=== PATIENT | male | born 1960 | race Caucasian/White ===

== ENCOUNTER 2023-02-27 08:40 | Emergency (ER) | payer OTHER, SELFPAY ==
[2023-02-27] VITALS (66 sets, daily range): BP systolic 103–153; BP diastolic 53–86; PULSE 68–104; RESP 8–25; TEMP 36.4–37.2; O2SAT 96–100; BMI 27.7
--- NOTE | 2023-02-27 08:46 | ECG_ITS ---
APPROVED REPORT Exam: Resting ECG HR:67 bpm ECG Measurements Heart Rate 67 AXES NH 177 P 76 QRSd 94 QRS 37 QT 404 T 56 QTc 420 Conclusion SINUS RHYTHM NORMAL ECG UNCONFIRMED REPORT Electronically signed by : Tay Fuentes MD 02/28/2023 17:20:13
[2023-02-27 09:19] LABS: Basophils % 0.4 % (0.1-2.0); Eosinophils # 0.1 K/mm3 (0.0-0.4); Eosinophils % 2.6 % (0.1-12.0); Lymphocytes # 0.7 K/mm3 (0.7-4.5); Lymphocytes % 13.2 % (10-50); Mean Corpuscular HGB Conc 27.6 g/dL (31.8-35.4); Mean Corpuscular Hemoglobin 22.5 pg (27.0-31.2); Mean Corpuscular Volume 81.7 fl (80-94); Mean Platelet Volume 6.5 fl (7.4-10.4); Monocytes # 0.4 K/mm3 (0.1-1.0); Monocytes % 7.9 % (1.7-9.3); Neutrophils # 3.9 K/mm3 (1.8-7.8); Platelet Count 412 K/mm3 (142-424); Red Blood Count 2.41 M/mm3 (4.60-6.20); Red Cell Distribution Width 19.8 % (11.5-17.5); White Blood Count 5.1 K/mm3 (4.8-10.8)
[2023-02-27 09:23] LABS: Alanine Aminotransferase 22 U/L (12-78); Albumin Level 3.4 g/dl (3.5-5.0); Albumin/Globulin Ratio 1.4 (1.1-1.8); Alkaline Phosphatase 69 U/L (38-126); Anion Gap 12.7 mEq/L (5-15); Aspartate Amino Transferase 29 U/L (17-59); Bilirubin,Total 0.2 mg/dl (0.2-1.3); Blood Urea Nitrogen 14 mg/dl (9-20); Calcium 8.8 mg/dl (8.4-10.2); Carbon Dioxide 23 mmol/L (22.0-30.0); Chloride 104 mmol/L (98-107); Creatinine Clearance Estimated 91 mL/min (50-200); Estimated Glomerular Filt Rate 85 ml/min (>60); GFR (African American) 103 ML/MIN (>60); Globulin 2.4 g/dL (1.3-3.2); Glucose 135 mg/dl (74-100); Potassium 3.7 mmoL/L (3.5-5.1); Sodium 136 mmol/L (136-145); Total Protein,Serum 5.8 g/dl (6.3-8.2)
--- NOTE | 2023-02-27 09:33 | HMH.EDGENADL ---
Discharge Plan Disposition Patient Disposition: Home, Self-Care Prescriptions Prescriptions: No Action atorvastatin 40 mg Tablet 40 mg PO DAILY metoprolol succinate 100 mg Tablet Extended Release 24 Hr 100 mg PO DAILY ropinirole 0.25 mg Tablet 0.25 mg PO DAILY amlodipine 10 mg Tablet 10 mg PO DAILY albuterol 90 mcg/actuation Aerosol 90 mcg INHALATION DAILY Referrals Follow up/Referrals: Provider,Referral, [Primary Care Provider] - See instructions Clinical Impressions Clinical Impression: Acute blood loss anemia Discharge ED Provider: Steven Stuart General Adult HPI General Chief complaint: Weakness Stated complaint: BP low, weakness Time Seen by Provider: 02/27/23 08:45 Mode of Arrival: Ambulatory Source of Information: Patient Limitations: No Limitations Description of Symptoms (Recalled from ER Triage Doc. by RN): Pt reports tired feeling, SOA with activity. States has been diagnosed with iron deficiency anemia states has been taking iron tablets along with vitamin C x3 weeks. Pt reports is scheduled for colonoscopy on 04/01/23 with [facility]. Pt is skin color is pale. Pt reports bp was low at home. 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 Patient states he been feeling weak over the period of about a month. [facility] Has been taking iron tablets every other day. Last colonoscopy was 11 years ago and was normal, per patient and . Patient states has been feeling short of breath with exertion, but denies positional changes. No chest pain, nausea or vomiting, neurologic deficits. Patient does not take blood thinners. Because of history of near total colectomy, diarrhea, but patient states he denies any melena or obvious bright red blood per rectum Related Data Home Medications Medication Instructions Recorded Confirmed albuterol 90 mcg/actuation aerosol 90 mcg inhalation DAILY . 02/27/23 02/27/23 inhaler amlodipine 10 mg tablet 10 mg PO DAILY . 02/27/23 02/27/23 atorvastatin 40 mg tablet 40 mg PO DAILY . 02/27/23 02/27/23 metoprolol succinate 100 mg 100 mg PO DAILY High Blood Pressure 02/27/23 02/27/23 tablet,extended release 24 hr ropinirole 0.25 mg tablet 0.25 mg PO DAILY . 02/27/23 02/27/23 Allergies Allergy/AdvReac Type Severity Reaction Status Date / Time No Known Allergies Allergy Verified 02/27/23 09:55 [facility] Disclaimer: The information contained in this section may have been updated after the patient was seen, as this information can be updated by other users. Social History Smoking Status: Never smoker alcohol intake: never current occupational status: previously employed Travel in the last 8 weeks: None ROS Obtained: Yes All systems reviewed & no additional complaints except as documented Physical Exam General General appearance: alert and in no apparent distress Head Head exam: atraumatic and normocephalic Eye Eye exam: Present normal appearance, PERRL, EOMI and other (Conjunctival pallor) ENT ENT exam: Present mucous membranes moist Neck Neck exam: Present normal inspection, full ROM and trachea midline Respiratory Respiratory exam: Present normal lung sounds bilaterally; Absent respiratory distress, wheezes, stridor, accessory muscle use or prolonged expiratory phase Cardiovascular Cardiovascular exam: Present regular rate and normal rhythm Abdominal Exam Abdominal exam: Present soft and hernia (Ventral, reducible); Absent distention, tenderness, guarding, rebound, rigidity or normal bowel sounds Extremities Exam Extremities exam: Absent edema Neurological Exam Neurological exam: Present alert, oriented X3, CN II-XII intact and normal gait; Absent motor sensory deficit Skin Skin exam: Present warm, dry and pallor; Absent diaphoresis
[2023-02-27 09:34] LABS: Hematocrit 19.7 % (42.0-52.0)
--- NOTE | 2023-02-27 09:35 | PC.NURSE ---
critical h&h called to
[2023-02-27 09:39] LABS: Hemoglobin 5.4 g/dL (14.1-18.0)
[2023-02-27 09:41] LABS: Activated Partial Thrombo Time 22.6 seconds (22.8-30.6); INR 0.94 (0.9-1.1); Prothrombin Time 10.2 seconds (10.1-12.5); T4 (Thyroxine) 8.4 ug/dl (5.53-11.0)
[2023-02-27 09:54] LABS: Thyroid Stimulating Hormone 5.65 uIU/mL (0.465-4.68)
--- NOTE | 2023-02-27 09:54 | PC.NURSE ---
Dr. Stuart at [facility] to update pt on POC
--- NOTE | 2023-02-27 10:06 | CT_ITS ---
FINAL REPORT TECHNIQUE: Pre-and postcontrast images of the abdomen and pelvis were performed by computed tomography. Extensive 3-D reconstruction images were performed. A CTA was performed. This study was performed with techniques to keep radiation doses as low as reasonably achievable (ALARA). Individualized dose reduction techniques using automated exposure control or adjustment of mA and/or kV according to the patient's size were employed. CLINICAL HISTORY: GIB, anemia. dark stool COMPARISON: None FINDINGS: ABDOMEN AND PELVIS: The lung bases are clear. Precontrast images demonstrate no evidence of nephrolithiasis. No adrenal masses are identified. The liver, spleen and pancreas are unremarkable. The patient appears to have undergone a subtotal colectomy. There is thickening of the forde of bowel loops in the right abdomen, presumed small bowel, with an anastomosis to the colon. There is also wall thickening of the distal colon and rectum. There is bladder wall thickening present as well which may be secondary to cystitis. CTA: The abdominal aorta is proper caliber. The SMA, celiac axis, and RYLEE are patent. 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 There is no significant stenosis or calcification. The renal arteries are patent bilaterally, with 2 renal arteries on the left and a single renal artery on the right. The common iliac arteries are unremarkable in appearance. The internal and external iliac arteries are also normal in appearance. No evidence of active hemorrhage is seen in the gastrointestinal tract. IMPRESSION: No active hemorrhage is seen in the abdomen or pelvis. 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 There are 2 left renal arteries and a single right renal artery. The patient appears to have undergone a subtotal colectomy, and there is thickening of some right abdominal bowel loops, presumed small bowel, with wall thickening also present in the distal colon and rectum. Would favor an enterocolitis as the etiology. Reviewed, Interpreted and Dictated by Tisha Schrader MD Transcribed by Carola Duke Authenticated and [facility]
--- NOTE | 2023-02-27 10:18 | PC.NURSE ---
per lab staff, attempted to run Hgb A1C but states since pts hemaglobin is so low it won't run on their analyzer so they will have to send it out. Notified Dr. Stuart
--- NOTE | 2023-02-27 10:50 | PC.NURSE ---
rounded on pt, notified pt we are waiting on ct scan results. pt states no needs at this time, call light in reach
--- NOTE | 2023-02-27 10:51 | PC.NURSE ---
rounded on pt, updated pt we are waiting on ct scan results, blood transfusion has been ordered for pt, waiting on blood to be ready. Stated to pt when ct scan is resulted, if clear we will get him a food tray. call light in reach, at [facility]
--- NOTE | 2023-02-27 11:25 | PC.NURSE ---
called to check on pts blood product. lab stated they are working on it and will call when ready
--- NOTE | 2023-02-27 12:00 | PC.NURSE ---
Called dietary for a lunch tray
--- NOTE | 2023-02-27 13:00 | PC.NURSE ---
pt received urinal
--- NOTE | 2023-02-27 14:04 | PC.NURSE ---
Pt ambulatory to bathroom and back to bed. Warm blanket provided. No other needs voiced.
--- NOTE | 2023-02-27 15:08 | PC.NURSE ---
pt resting in bed nothing needed at this time, at bs
--- NOTE | 2023-02-27 16:15 | PC.NURSE ---
Dr. Clarke at [facility] to speak with pt
--- NOTE | 2023-02-27 16:22 | PC.NURSE ---
Spoke with Gayle at [facility] transfer center. Advised she would speak with superintendent house and call back.
--- NOTE | 2023-02-27 16:25 | PC.NURSE ---
covid/flu swab sent to lab
[2023-02-27 16:27] LABS: Coronavirus 19, PCR Not Detected (NotDetected); Influenza A, PCR Not Detected (NotDetected); Influenza B, PCR Not Detected (NotDetected)
--- NOTE | 2023-02-27 16:48 | PC.NURSE ---
Dr. Clarke speaking with Dr. Gutierrez hospitalist at [facility]
--- NOTE | 2023-02-27 16:54 | PC.NURSE ---
Pt accepted to [facility] by Dr. Gutierrez. Waiting for call back for bed assignment.
--- NOTE | 2023-02-27 16:59 | PC.NURSE ---
Notified [facility] to have a disc made
--- NOTE | 2023-02-27 17:08 | PC.NURSE ---
pt updated on POC.
[2023-02-27 17:14] LABS: Hematocrit 27.4 % (42.0-52.0)
--- NOTE | 2023-02-27 17:21 | PC.NURSE ---
Called [facility] to update that covid/flu swab was negative. Received bed assignment, Second floor room 263. Number for report [phone].
[2023-02-27 17:49] LABS: Hemoglobin 8.3 g/dL (14.1-18.0)
[2023-02-27 18:10] LABS: Hemoglobin A1C 5.3 % (4.0-6.0)
--- NOTE | 2023-02-27 18:11 | PC.NURSE ---
mary beth called with [facility]. updated nurse on pt leaving the hospital and new HH result
== END 2023-02-27 18:12 | disposition home or self-care (01) ==
PROVIDERS: Emergency Medicine; Emergency Provider Emergency Medicine
DX: D62 Acute posthemorrhagic anemia (principal); R53.1 Weakness; R06.02 Shortness of breath
CPT/HCPCS: 36415; 74174; 80053; 83036; 84436; 84443; 85014; 85018; 85025; 85610; 85730; 86850; 87636; 93005; 96360; 99285; P9016; Q9967

== ENCOUNTER 2024-04-29 06:35 | Emergency (ER) | payer OTHER, SELFPAY ==
[2024-04-29] VITALS (17 sets, daily range): BP systolic 108–135; BP diastolic 66–82; PULSE 66–82; RESP 16–18; TEMP 36.6–36.9; O2SAT 96–100; BMI 24.3
--- NOTE | 2024-04-29 06:54 | ED_ITS ---
Discharge Plan Disposition Patient Disposition: Xfer Short-Term Hosp Prescriptions Prescriptions: No Action atorvastatin 40 mg Tablet 40 mg PO DAILY metoprolol succinate 100 mg Tablet Extended Release 24 Hr 100 mg PO DAILY ropinirole 0.25 mg Tablet 0.25 mg PO DAILY amlodipine 10 mg Tablet 10 mg PO DAILY albuterol 90 mcg/actuation Aerosol 90 mcg INHALATION DAILY Referrals Follow up/Referrals: Provider,Referral, [Primary Care Provider] - See instructions Clinical Impressions Clinical Impression: Acute anemia, GI bleed Stand Alone Forms Stand Alone Forms: Transfer Record - ED Instructions Patient Instructions: DI for Gastrointestinal Bleeding Print Language Print Language: Armenian Discharge ED Provider: Steven Stuart General Adult HPI <Pj Gtz MD - Last Filed: 04/29/24 07:04> General Chief complaint: GI Bleed Stated complaint: SOB, bloody stool Time Seen by Provider: 04/29/24 06:40 Mode of Arrival: Ambulatory Source of Information: Patient and Spouse Limitations: No Limitations Description of Symptoms (Recalled from ER Triage Doc. by RN): pt reports blood in his stool that has been occuring off and on for the past year after recieving chemo and radiation for his colon cancer, last treatment was in December. pt states this morning he was feeling short of air as well and his reported his color was hathaway History of Present Illness HPI narrative: 63-year-old male with history of hypertension hyperlipidemia asthma colon cancer status post chemo and radiation that finished this summer presents with worsening bright red blood per rectum. He reports that he has been having on and off but it has been getting a lot worse. He felt short of breath this morning and thought he looked gary so he came in for evaluation. His hemoglobin was checked last week and was 10.5. He is not on blood thinners. He reports that his shortness of breath this morning was not improved with his CPAP or his inhaler. He does report history of hemorrhoids. Related Data Home Medications ?Medication ?Instructions ?Recorded ?Confirmed albuterol 90 mcg/actuation aerosol 90 mcg inhalation DAILY . 02/27/23 02/27/23 inhaler amlodipine 10 mg tablet 10 mg PO DAILY . 02/27/23 02/27/23 atorvastatin 40 mg tablet 40 mg PO DAILY . 02/27/23 02/27/23 metoprolol succinate 100 mg 100 mg PO DAILY High Blood Pressure 02/27/23 02/27/23 tablet,extended release 24 hr ropinirole 0.25 mg tablet 0.25 mg PO DAILY . 02/27/23 02/27/23 Allergies Allergy/AdvReac Type Severity Reaction Status Date / Time No Known Allergies Allergy Verified 02/27/23 09:55 PFS <Pj Gtz MD - Last Filed: 04/29/24 07:04> [facility] Disclaimer: The information contained in this section may have been updated after the patient was seen, as this information can be updated by other users. Social History (Updated 02/27/23 @ 14:41 by Steven Stuart MD) Smoking Status: Never smoker alcohol intake: never current occupational status: previously employed <Pj Gtz MD - Last Filed: 04/29/24 07:04> ROS Obtained: Yes All systems reviewed & no additional complaints except as documented Physical Exam <Pj Gtz MD - Last Filed: 04/29/24 07:04> General General appearance: alert and in no apparent distress Head Head exam: atraumatic and normocephalic Eye Eye exam: Present normal appearance, PERRL and EOMI ENT ENT exam: Present normal oropharynx and normal external ear exam Neck Neck exam: Present normal inspection and full ROM Chest Chest inspection: Present normal inspection and symmetric chest wall rise; Absent tenderness Respiratory Respiratory exam: Present normal lung sounds bilaterally; Absent respiratory distress Cardiovascular Cardiovascular exam: Present regular rate and normal rhythm Abdominal Exam Abdominal exam: Present soft; Absent distention, tenderness or guarding Rectal Exam comment: Skin tags/hemorrhoids noted Extremities Exam Extremities exam: Present normal inspection; Absent edema or joint swelling Back Exam Back exam: Present normal inspection; Absent tenderness Neurological Exam Neurological exam: Present alert and oriented X3; Absent motor sensory deficit Psychiatric Psychiatric exam: Present normal affect and normal mood Skin Skin exam: Present warm, dry and normal color Lymphatic Lymphatic Findings: no adenopathy Medical Decision Making <Pj Gtz MD - Last Filed: 04/29/24 07:04> Medical Records Medical records reviewed: Yes I reviewed the patient's medical records. Screening: Per USPSTF and CDC recommendations, given the prevalence of disease in our region, it is our hospital?s policy to screen for HIV and viral Hepatitis for all patients aged 18 and over and those with ongoing risk factors. Jeff Inquiry Pt receiving controlled substance: No Jeff was queried for this patient: No Vital Signs: 04/29/24 06:36 04/29/24 07:00 04/29/24 07:30 Temperature 98.4 F Temperature Source Oral Pulse Rate 78 69 Pulse Rate [Right] 77 Respiratory Rate 16 TAR Vitals Timing Blood Pressure Blood Pressure [Right Arm] 108/67 L Blood Pressure Mean Blood Pressure Mean [Right Arm] 80 Blood Pressure Source Blood Pressure Position 02 Sat by Pulse Oximetry 100 100 100 Oxygen Delivery Method Room Air 04/29/24 08:00 04/29/24 08:30 04/29/24 09:17 Temperature 98.1 F Temperature Source Oral Pulse Rate 72 74 76 Pulse Rate [Right] Respiratory Rate 16 TAR Vitals Timing Pre-Blood Vitals Blood Pressure 132/71 Blood Pressure [Right Arm] Blood Pressure Mean 91 Blood Pressure Mean [Right Arm] Blood Pressure Source Blood Pressure Position 02 Sat by Pulse Oximetry 100 100 100 Oxygen Delivery Method 04/29/24 09:17 04/29/24 09:25 04/29/24 09:26 Temperature 98.3 F Temperature Source Oral Pulse Rate 74 69 72 Pulse Rate [Right] Respiratory Rate 16 TAR Vitals Timing Start Vitals Blood Pressure 132/71 115/72 115/72 Blood Pressure [Right Arm] Blood Pressure Mean 86 Blood Pressure Mean [Right Arm] Blood Pressure Source Automatic Cuff Blood Pressure Position Sitting 02 Sat by Pulse Oximetry 100 100 100 Oxygen Delivery Method 04/29/24 09:30 04/29/24 09:30 04/29/24 09:35 Temperature 97.9 F 97.8 F Temperature Source Oral Oral Pulse Rate 82 78 79 Pulse Rate [Right] Respiratory Rate 18 16 TAR Vitals Timing 5 Minute 10 Minute Blood Pressure 125/78 125/78 116/74 Blood Pressure [Right Arm] Blood Pressure Mean 93 88 Blood Pressure Mean [Right Arm] Blood Pressure Source Automatic Cuff Automatic Cuff Blood Pressure Position Sitting Sitting 02 Sat by Pulse Oximetry 100 100 100 Oxygen Delivery Method 04/29/24 09:35 04/29/24 09:40 04/29/24 09:55 Temperature 97.8 F 97.8 F Temperature Source Oral Oral Pulse Rate 66 76 78 Pulse Rate [Right] Respiratory Rate 16 16 TAR Vitals Timing 15 Minute 30 Minute Blood Pressure 116/74 135/82 125/66 Blood Pressure [Right Arm] Blood Pressure Mean 99 85 Blood Pressure Mean [Right Arm] Blood Pressure Source Automatic Cuff Automatic Cuff Blood Pressure Position Sitting Sitting 02 Sat by Pulse Oximetry 96 100 100 Oxygen Delivery Method Room Air 04/29/24 10:00 04/29/24 10:10 04/29/24 10:25 Temperature 98.1 F 98.1 F Temperature Source Oral Oral Pulse Rate 78 77 79 Pulse Rate [Right] Respiratory Rate 16 16 TAR Vitals Timing 45 Minute 60 Minute Blood Pressure 118/73 112/73 113/71 Blood Pressure [Right Arm] Blood Pressure Mean 86 85 Blood Pressure Mean [Right Arm] Blood Pressure Source Automatic Cuff Automatic Cuff Blood Pressure Position Sitting Sitting 02 Sat by Pulse Oximetry 100 100 100 Oxygen Delivery Method Room Air 04/29/24 10:30 04/29/24 10:30 04/29/24 10:38 Temperature 98.1 F 98.1 F Temperature Source Oral Oral Pulse Rate 76 76 78 Pulse Rate [Right] Respiratory Rate 16 16 TAR Vitals Timing Completion Vitals Blood Pressure 116/72 116/72 128/66 Blood Pressure [Right Arm] Blood Pressure Mean 86 Blood Pressure Mean [Right Arm] Blood Pressure Source Automatic Cuff Automatic Cuff Blood Pressure Position Sitting Sitting 02 Sat by Pulse Oximetry 100 100 Oxygen Delivery Method Room Air Room Air Lab Data Lab results reviewed: Yes I reviewed the patient's lab results. Lab Results 04/29/24 06:43: WBC 4.5 L, RBC 2.54 L, Hgb 7.2 L, Hct 22.0 L, MCV 86.7, MCH 28.5, MCHC 32.8, RDW 16.3, Plt Count 258, MPV 7.0 L, Neut % (Auto) 73.5, Lymph % (Auto) 15.5, [place] % (Auto) 9.2, Eos % (Auto) 1.4, Baso % (Auto) 0.4, Neut # (Auto) 3.3, Lymph # (Auto) 0.7, [place] # (Auto) 0.4, Eos # (Auto) 0.1, Baso # (Auto) 0.0, PT 10.1, INR 0.89 L, APTT 19.9 L, D-Dimer 0.43, Sodium 138, P otassium 3.1 L, Chloride 105, Carbon Dioxide 28, Anion Gap 8.1, BUN 15, Creatinine 0.90, Estimated Creat Clear 79, Estimated GFR 85, Est GFR ( Amer) 103, Glucose 116 H, Calcium 9.2, Magnesium 1.9, Total Bilirubin 0.4, AST 36, ALT 27, Alkaline Phosphatase 95, Total Protein 5.8 L, Albumin 3.7, Globulin 2.1, Albumin/Globulin Ratio 1.8, Blood Type O Positive, Antibody Screen Negative, Crossmatch (AHG) See Detail 04/29/24 08:03: SARS-CoV-2 (PCR) Not detected, Influenza A Untype (PCR) Not detected, Influenza Type B (PCR) Not detected 04/29/24 06:43 04/29/24 06:43 Orders (Tests/Meds): ED MEDICATIONS Generic Name Dose Route Start Last Admin Trade Name Freq PRN Reason Stop Dose Admin Sodium Chloride 250 mls @ 25 mls/hr 04/29/24 07:15 Sod Chlor 0.9% 250ml Bag IV 04/30/24 07:14 .Q10H RADHA Discontinued Medications Generic Name Dose Route Start Last Admin Trade Name Freq PRN Reason Stop Dose Admin Sodium Chloride 1,000 mls @ 999 mls/hr 04/29/24 09:00 04/29/24 09:06 Sod Chlor 0.9% 1000ml Bag IV 04/29/24 10:00 999 mls/hr .Q1H1M ONE Administration Potassium Chloride 60 meq 04/29/24 09:01 04/29/24 09:06 Potassium Chloride 20meq Tab PO 04/29/24 09:02 60 meq ONCE ONE Administration ORDERS Category Date Time Status Transfuse RBC's [Red Blood Cells] Stat BBK 04/29/24 06:43 Completed Type and Screen Stat BBK 04/29/24 06:43 Completed CBC w/Auto Diff [Complete Blood Count Auto Diff] Stat Lab 04/29/24 06:43 Completed CMP [Comprehensive Metabolic Panel] Stat Lab 04/29/24 06:43 Completed D-Dimer Stat Lab 04/29/24 06:43 Completed Diarrhea 23 Panel, PCR Stat Lab 04/29/24 06:44 Ordered HIV (1&2) Antibody Rapid Stat Lab 04/29/24 06:43 Received Hep C Ab with Reflex to RNA Stat Lab 04/29/24 06:43 Received INR [Prothrombin Time INR] Stat Lab 04/29/24 06:43 Completed Magnesium Stat Lab 04/29/24 06:43 Completed PTT [Activated Partial Thrombo Time] Stat Lab 04/29/24 06:43 Completed Rapid PCR Covid and Flu A/B Stat Lab 04/29/24 08:03 Completed Medical Decision Narrative: 63-year-old male with history of colon cancer, hypertension hyperlipidemia asthma not on blood thinners presents for worsening blurry blood per rectum. History was obtained via interactive discussion with patient, family, chart. On arrival, patient is [afebrile, hemodynamically stable, satting appropriately, alert, oriented x4, GCS 15], moving all extremities spontaneously. Full physical exam performed and significant for no significant physical exam abnormalities. Differential includes but is not limited to symptomatic anemia, upper GI bleeding, lower GI bleeding, coagulopathy, pneumonia, PE. Workup initiated including CBC CMP INR PTT D-dimer type and screen. At this time care handed off to oncoming physician. <Steven Stuart MD - Last Filed: 04/29/24 10:55> Vital Signs: 04/29/24 06:36 04/29/24 07:00 04/29/24 07:30 Temperature 98.4 F Temperature Source Oral Pulse Rate 78 69 Pulse Rate [Right] 77 Respiratory Rate 16 TAR Vitals Timing Blood Pressure Blood Pressure [Right Arm] 108/67 L Blood Pressure Mean Blood Pressure Mean [Right Arm] 80 Blood Pressure Source Blood Pressure Position 02 Sat by Pulse Oximetry 100 100 100 Oxygen Delivery Method Room Air 04/29/24 08:00 04/29/24 08:30 04/29/24 09:17 Temperature 98.1 F Temperature Source Oral Pulse Rate 72 74 76 Pulse Rate [Right] Respiratory Rate 16 TAR Vitals Timing Pre-Blood Vitals Blood Pressure 132/71 Blood Pressure [Right Arm] Blood Pressure Mean 91 Blood Pressure Mean [Right Arm] Blood Pressure Source Blood Pressure Position 02 Sat by Pulse Oximetry 100 100 100 Oxygen Delivery Method 04/29/24 09:17 04/29/24 09:25 04/29/24 09:26 Temperature 98.3 F Temperature Source Oral Pulse Rate 74 69 72 Pulse Rate [Right] Respiratory Rate 16 TAR Vitals Timing Start Vitals Blood Pressure 132/71 115/72 115/72 Blood Pressure [Right Arm] Blood Pressure Mean 86 Blood Pressure Mean [Right Arm] Blood Pressure Source Automatic Cuff Blood Pressure Position Sitting 02 Sat by Pulse Oximetry 100 100 100 Oxygen Delivery Method 04/29/24 09:30 04/29/24 09:30 04/29/24 09:35 Temperature 97.9 F 97.8 F Temperature Source Oral Oral Pulse Rate 82 78 79 Pulse Rate [Right] Respiratory Rate 18 16 TAR Vitals Timing 5 Minute 10 Minute Blood Pressure 125/78 125/78 116/74 Blood Pressure [Right Arm] Blood Pressure Mean 93 88 Blood Pressure Mean [Right Arm] Blood Pressure Source Automatic Cuff Automatic Cuff Blood Pressure Position Sitting Sitting 02 Sat by Pulse Oximetry 100 100 100 Oxygen Delivery Method 04/29/24 09:35 04/29/24 09:40 04/29/24 09:55 Temperature 97.8 F 97.8 F Temperature Source Oral Oral Pulse Rate 66 76 78 Pulse Rate [Right] Respiratory Rate 16 16 TAR Vitals Timing 15 Minute 30 Minute Blood Pressure 116/74 135/82 125/66 Blood Pressure [Right Arm] Blood Pressure Mean 99 85 Blood Pressure Mean [Right Arm] Blood Pressure Source Automatic Cuff Automatic Cuff Blood Pressure Position Sitting Sitting 02 Sat by Pulse Oximetry 96 100 100 Oxygen Delivery Method Room Air 04/29/24 10:00 04/29/24 10:10 04/29/24 10:25 Temperature 98.1 F 98.1 F Temperature Source Oral Oral Pulse Rate 78 77 79 Pulse Rate [Right] Respiratory Rate 16 16 TAR Vitals Timing 45 Minute 60 Minute Blood Pressure 118/73 112/73 113/71 Blood Pressure [Right Arm] Blood Pressure Mean 86 85 Blood Pressure Mean [Right Arm] Blood Pressure Source Automatic Cuff Automatic Cuff Blood Pressure Position Sitting Sitting 02 Sat by Pulse Oximetry 100 100 100 Oxygen Delivery Method Room Air 04/29/24 10:30 04/29/24 10:30 04/29/24 10:38 Temperature 98.1 F 98.1 F Temperature Source Oral Oral Pulse Rate 76 76 78 Pulse Rate [Right] Respiratory Rate 16 16 TAR Vitals Timing Completion Vitals Blood Pressure 116/72 116/72 128/66 Blood Pressure [Right Arm] Blood Pressure Mean 86 Blood Pressure Mean [Right Arm] Blood Pressure Source Automatic Cuff Automatic Cuff Blood Pressure Position Sitting Sitting 02 Sat by Pulse Oximetry 100 100 Oxygen Delivery Method Room Air Room Air Lab Data Lab Results 04/29/24 06:43: WBC 4.5 L, RBC 2.54 L, Hgb 7.2 L, Hct 22.0 L, MCV 86.7, MCH 28.5, MCHC 32.8, RDW 16.3, Plt Count 258, MPV 7.0 L, Neut % (Auto) 73.5, Lymph % (Auto) 15.5, [place] % (Auto) 9.2, Eos % (Auto) 1.4, Baso % (Auto) 0.4, Neut # (Auto) 3.3, Lymph # (Auto) 0.7, [place] # (Auto) 0.4, Eos # (Auto) 0.1, Baso # (Auto) 0.0, PT 10.1, INR 0.89 L, APTT 19.9 L, D-Dimer 0.43, Sodium 138, P otassium 3.1 L, Chloride 105, Carbon Dioxide 28, Anion Gap 8.1, BUN 15, Creatinine 0.90, Estimated Creat Clear 79, Estimated GFR 85, Est GFR ( Amer) 103, Glucose 116 H, Calcium 9.2, Magnesium 1.9, Total Bilirubin 0.4, AST 36, ALT 27, Alkaline Phosphatase 95, Total Protein 5.8 L, Albumin 3.7, Globulin 2.1, Albumin/Globulin Ratio 1.8, Blood Type O Positive, Antibody Screen Negative, Crossmatch (AHG) See Detail 04/29/24 08:03: SARS-CoV-2 (PCR) Not detected, Influenza A Untype (PCR) Not detected, Influenza Type B (PCR) Not detected Orders (Tests/Meds): ED MEDICATIONS Generic Name Dose Route Start Last Admin Trade Name Freq PRN Reason Stop Dose Admin Sodium Chloride 250 mls @ 25 mls/hr 04/29/24 07:15 Sod Chlor 0.9% 250ml Bag IV 04/30/24 07:14 .Q10H RADHA Discontinued Medications Generic Name Dose Route Start Last Admin Trade Name Freq PRN Reason Stop Dose Admin Sodium Chloride 1,000 mls @ 999 mls/hr 04/29/24 09:00 04/29/24 09:06 Sod Chlor 0.9% 1000ml Bag IV 04/29/24 10:00 999 mls/hr .Q1H1M ONE Administration Potassium Chloride 60 meq 04/29/24 09:01 04/29/24 09:06 Potassium Chloride 20meq Tab PO 04/29/24 09:02 60 meq ONCE ONE Administration ORDERS Category Date Time Status Transfuse RBC's [Red Blood Cells] Stat BBK 04/29/24 06:43 Completed Type and Screen Stat BBK 04/29/24 06:43 Completed CBC w/Auto Diff [Complete Blood Count Auto Diff] Stat Lab 04/29/24 06:43 Completed CMP [Comprehensive Metabolic Panel] Stat Lab 04/29/24 06:43 Completed D-Dimer Stat Lab 04/29/24 06:43 Completed Diarrhea 23 Panel, PCR Stat Lab 04/29/24 06:44 Ordered HIV (1&2) Antibody Rapid Stat Lab 04/29/24 06:43 Received Hep C Ab with Reflex to RNA Stat Lab 04/29/24 06:43 Received INR [Prothrombin Time INR] Stat Lab 04/29/24 06:43 Completed Magnesium Stat Lab 04/29/24 06:43 Completed PTT [Activated Partial Thrombo Time] Stat Lab 04/29/24 06:43 Completed Rapid PCR Covid and Flu A/B Stat Lab 04/29/24 08:03 Completed Medical Decision Narrative: 63-year-old male with history of colon cancer, hypertension hyperlipidemia asthma not on blood thinners presents for worsening blurry blood per rectum. History was obtained via interactive discussion with patient, family, chart. On arrival, patient is afebrile, hemodynamically stable, satting appropriately, alert, oriented x4, GCS 15, moving all extremities spontaneously. Full physical exam performed and significant for no significant physical exam abnormalities. Differential includes but is not limited to symptomatic anemia, upper GI bleeding, lower GI bleeding, coagulopathy, pneumonia, PE. Workup initiated including CBC CMP INR PTT D-dimer type and screen. At this time care handed off to oncoming physician. Sade: I assumed primary responsibility for this patient after signout from previous physician. On my evaluation, patient appears pale, nontachycardic, no acute distress. States that he feels a lot better even prior to blood. Independent interpretation of workup demonstrates hemoglobin 7.2 down from 10.5 just a month ago. Normal platelets. Coags normal. Mild hypokalemia, this was repleted 60 mill equivalents p.o. Patient also given 1 L saline with 1 unit of crossed/matched O+ blood. Results were relayed to patient and who voiced understanding and were agreeable to transfer and further management at the [facility]. I discussed my clinical impression with patient and and answered all questions. At this time, the evidence for any other entities in the differential warrants further workup by gastroenterology. This was explained as well. Patient to be transferred to [facility] for further definitive management. Procedures <Pj Gtz MD - Last Filed: 04/29/24 07:04> Risk/Benefits of Procedure(s) Were Explained: Yes Critical Care <Pj Gtz MD - Last Filed: 04/29/24 07:04> Critical Care Time Critical Care Time: No
[2024-04-29 06:59] LABS: Basophils % 0.4 % (0.1-2.0); Eosinophils # 0.1 K/mm3 (0.0-0.4); Eosinophils % 1.4 % (0.1-12.0); Hemoglobin 7.2 g/dL (14.1-18.0); Lymphocytes # 0.7 K/mm3 (0.7-4.5); Lymphocytes % 15.5 % (10-50); Mean Corpuscular HGB Conc 32.8 g/dL (31.8-35.4); Mean Corpuscular Hemoglobin 28.5 pg (27.0-31.2); Mean Corpuscular Volume 86.7 fl (80-94); Monocytes # 0.4 K/mm3 (0.1-1.0); Monocytes % 9.2 % (1.7-9.3); Neutrophils # 3.3 K/mm3 (1.8-7.8); Neutrophils % 73.5 % (37.0-80.0); Platelet Count 258 K/mm3 (142-424); Red Blood Count 2.54 M/mm3 (4.60-6.20); Red Cell Distribution Width 16.3 % (11.5-17.5); White Blood Count 4.5 K/mm3 (4.8-10.8)
[2024-04-29 07:08] LABS: Magnesium 1.9 mg/dl (1.6-2.3)
[2024-04-29 07:09] LABS: Alanine Aminotransferase 27 U/L (12-78); Albumin Level 3.7 g/dl (3.5-5.0); Albumin/Globulin Ratio 1.8 (1.1-1.8); Alkaline Phosphatase 95 U/L (38-126); Anion Gap 8.1 mEq/L (5-15); Aspartate Amino Transferase 36 U/L (17-59); Bilirubin,Total 0.4 mg/dl (0.2-1.3); Blood Urea Nitrogen 15 mg/dl (9-20); Calcium 9.2 mg/dl (8.4-10.2); Carbon Dioxide 28 mmol/L (22.0-30.0); Chloride 105 mmol/L (98-107); Creatinine Clearance Estimated 79 mL/min (50-200); Estimated Glomerular Filt Rate 85 ml/min (>60); GFR (African American) 103 ML/MIN (>60); Globulin 2.1 g/dL (1.3-3.2); Glucose 116 mg/dl (74-100); Potassium 3.1 mmoL/L (3.5-5.1); Sodium 138 mmol/L (136-145); Total Protein,Serum 5.8 g/dl (6.3-8.2)
[2024-04-29 07:44] LABS: D-Dimer 0.43 ug/mL (0.0-0.5)
[2024-04-29 07:47] LABS: INR 0.89 (0.9-1.1); Prothrombin Time 10.1 seconds (10.1-12.5)
[2024-04-29 07:49] LABS: Activated Partial Thrombo Time 19.9 seconds (22.8-30.6)
--- NOTE | 2024-04-29 07:56 | PC.NURSE ---
calling [facility] at this time.
--- NOTE | 2024-04-29 08:30 | PC.NURSE ---
o/p with [facility] at this time
[2024-04-29 08:38] LABS: Coronavirus 19, PCR Not Detected (NotDetected); Influenza A, PCR Not Detected (NotDetected); Influenza B, PCR Not Detected (NotDetected)
--- NOTE | 2024-04-29 08:57 | PC.NURSE ---
Confirmed with blood bank the order for 1 unit to be transfused per order, one unit will be prepared to release.
[2024-04-29] MEDS: POTASSIUM CHLORIDE 20MEQ TAB 60 MEQ PO (09:06)
[2024-04-29] MEDS: 0.9 % SODIUM CHLORIDE 1000ML 1,000 ML 999 ML IV (09:06)
--- NOTE | 2024-04-29 09:13 | PC.NURSE ---
[facility] update about [facility] results
--- NOTE | 2024-04-29 10:39 | PC.NURSE ---
Report called to VINCENT Vasquez at the [facility]. EMS called for transport.
[2024-04-29 16:14] LABS: HIV (1&2) Antibody Rapid NONREACTIVE (NONREACTIVE)
[2024-04-30 05:10] LABS: HCV Ab Non Reactive (Non Reactive)
== END 2024-04-29 11:07 | disposition short-term general hospital (02) ==
PROVIDERS: Emergency Medicine; Emergency Provider Emergency Medicine
DX: K92.2 Gastrointestinal hemorrhage, unspecified (principal); D64.9 Anemia, unspecified; R06.02 Shortness of breath
CPT/HCPCS: 80053; 83735; 85025; 85378; 85610; 85730; 86803; 86850; 87389; 87636; 96360; 99284; J7030; P9016

== ENCOUNTER 2024-05-09 23:29 | Emergency (ER) | payer OTHER, SELFPAY ==
[2024-05-09 23:30] VITALS: BP 129/79; PULSE 86; RESP 16; TEMP 36.7; O2SAT 100; BMI 25.8
--- NOTE | 2024-05-09 23:43 | ED_ITS ---
Discharge Plan Disposition Patient Disposition: Home, Self-Care Prescriptions Prescriptions: No Action atorvastatin 40 mg Tablet 40 mg PO DAILY metoprolol succinate 100 mg Tablet Extended Release 24 Hr 100 mg PO DAILY ropinirole 0.25 mg Tablet 0.25 mg PO DAILY amlodipine 10 mg Tablet 10 mg PO DAILY albuterol 90 mcg/actuation Aerosol 90 mcg INHALATION DAILY Referrals Follow up/Referrals: Provider,Referral, [Primary Care Provider] - See instructions Activity Restrictions/Add. Instructions Additional Instructions/Restrictions: Please follow-up with your primary care provider. Please return to the emergency department if you develop any new or worsening symptoms or become concerned for your health. Clinical Impressions Clinical Impression: Radiation proctitis, Symptomatic anemia Instructions Patient Instructions: DI for Gastrointestinal Bleeding Print Language Print Language: Qatari Discharge ED Provider: Pj Gtz Adult HPI General Chief complaint: GI Bleed Stated complaint: GI bleed Time Seen by Provider: 05/09/24 23:42 History of Present Illness HPI narrative: 63-year-old male with history of prior rectal cancer s/p resection and radiation presents for continued lower GI bleeding. Been having this issue for a while. I saw him a week or 2 ago with the same symptoms and transferred him to the [place] after transfusion. He reports he was discharged to the [place] couple of days ago and he has been having continued bleeding. His hemoglobin on discharge was 7.1. 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 He came in tonight because he is feeling generally weak. Related Data Home Medications ?Medication ?Instructions ?Recorded ?Confirmed albuterol 90 mcg/actuation aerosol 90 mcg inhalation DAILY . 02/27/23 02/27/23 inhaler amlodipine 10 mg tablet 10 mg PO DAILY . 02/27/23 02/27/23 atorvastatin 40 mg tablet 40 mg PO DAILY . 02/27/23 02/27/23 metoprolol succinate 100 mg 100 mg PO DAILY High Blood Pressure 02/27/23 02/27/23 tablet,extended release 24 hr ropinirole 0.25 mg tablet 0.25 mg PO DAILY . 02/27/23 02/27/23 Allergies Allergy/AdvReac Type Severity Reaction Status Date / Time No Known Allergies Allergy Verified 02/27/23 09:55 [facility] Disclaimer: The information contained in this section may have been updated after the patient was seen, as this information can be updated by other users. Social History (Updated 02/27/23 @ 14:41 by Steven Stuart MD) Smoking Status: Never smoker alcohol intake: never current occupational status: previously employed Travel in the last 8 weeks: None ROS Obtained: Yes All systems reviewed & no additional complaints except as documented Physical Exam General General appearance: alert and in no apparent distress Head Head exam: atraumatic and normocephalic Eye Eye exam: Present normal appearance, PERRL and EOMI ENT ENT exam: Present normal oropharynx and normal external ear exam Neck Neck exam: Present normal inspection and full ROM Chest Chest inspection: Present normal inspection and symmetric chest wall rise; Absent tenderness Respiratory Respiratory exam: Present normal lung sounds bilaterally; Absent respiratory distress Cardiovascular Cardiovascular exam: Present regular rate and normal rhythm Abdominal Exam Abdominal exam: Present soft; Absent distention, tenderness or guarding Extremities Exam Extremities exam: Present normal inspection; Absent edema or joint swelling Back Exam Back exam: Present normal inspection; Absent tenderness Neurological Exam Neurological exam: Present alert and oriented X3; Absent motor sensory deficit Psychiatric Psychiatric exam: Present normal affect and normal mood Skin Skin exam: Present warm, dry, normal color and pallor Lymphatic Lymphatic Findings: no adenopathy Medical Decision Making Medical Records Medical records reviewed: Yes I reviewed the patient's medical records. Screening: Per USPSTF and CDC recommendations, given the prevalence of disease in our region, it is our hospital?s policy to screen for HIV and viral Hepatitis for all patients aged 18 and over and those with ongoing risk factors. Jeff Inquiry Pt receiving controlled substance: No Jeff was queried for this patient: No Vital Signs: 05/09/24 23:30 05/09/24 23:48 05/10/24 00:33 Temperature 98.1 F Temperature Source Oral Pulse Rate 86 Pulse Rate [Right Radial] 86 Respiratory Rate 16 TAR Vitals Timing Blood Pressure 95/24 L Blood Pressure [Right Arm] 129/79 Blood Pressure Mean 30 Blood Pressure Mean [Right Arm] 95 Blood Pressure Source Blood Pressure Source [Right Arm] Automatic Cuff Blood Pressure Position Blood Pressure Position [Right Arm] Supine 02 Sat by Pulse Oximetry 100 100 Oxygen Delivery Method Room Air 05/10/24 00:44 05/10/24 01:00 05/10/24 01:10 Temperature Temperature Source Pulse Rate 76 75 76 Pulse Rate [Right Radial] Respiratory Rate TAR Vitals Timing Blood Pressure 83/50 L 88/49 L 93/50 L Blood Pressure [Right Arm] Blood Pressure Mean Blood Pressure Mean [Right Arm] Blood Pressure Source Blood Pressure Source [Right Arm] Blood Pressure Position Blood Pressure Position [Right Arm] 02 Sat by Pulse Oximetry 97 99 99 Oxygen Delivery Method 05/10/24 01:20 05/10/24 01:27 05/10/24 01:29 Temperature 98.1 F 98.1 F Temperature Source Oral Oral Pulse Rate 72 77 76 Pulse Rate [Right Radial] Respiratory Rate 18 18 TAR Vitals Timing Pre-Blood Vitals Start Vitals Blood Pressure 97/48 L 93/50 L 104/56 L Blood Pressure [Right Arm] Blood Pressure Mean 64 72 Blood Pressure Mean [Right Arm] Blood Pressure Source Automatic Cuff Blood Pressure Source [Right Arm] Blood Pressure Position Supine Supine Blood Pressure Position [Right Arm] 02 Sat by Pulse Oximetry 95 98 98 Oxygen Delivery Method 05/10/24 01:30 05/10/24 01:34 05/10/24 01:34 Temperature 98.1 F Temperature Source Oral Pulse Rate 76 76 67 Pulse Rate [Right Radial] Respiratory Rate 18 TAR Vitals Timing 5 Minute Blood Pressure 104/56 L 90/51 L 90/51 L Blood Pressure [Right Arm] Blood Pressure Mean 64 Blood Pressure Mean [Right Arm] Blood Pressure Source Automatic Cuff Blood Pressure Source [Right Arm] Blood Pressure Position Supine Blood Pressure Position [Right Arm] 02 Sat by Pulse Oximetry 98 98 Oxygen Delivery Method 05/10/24 01:39 05/10/24 01:39 05/10/24 01:44 Temperature 98.1 F 97.9 F Temperature Source Oral Oral Pulse Rate 66 66 68 Pulse Rate [Right Radial] Respiratory Rate 18 18 TAR Vitals Timing 10 Minute 15 Minute Blood Pressure 85/47 L 85/47 L 92/51 L Blood Pressure [Right Arm] Blood Pressure Mean 59 64 Blood Pressure Mean [Right Arm] Blood Pressure Source Automatic Cuff Automatic Cuff Blood Pressure Source [Right Arm] Blood Pressure Position Supine Supine Blood Pressure Position [Right Arm] 02 Sat by Pulse Oximetry 97 96 98 Oxygen Delivery Method 05/10/24 01:44 05/10/24 01:50 05/10/24 02:05 Temperature 97.9 F Temperature Source Oral Pulse Rate 72 68 70 Pulse Rate [Right Radial] Respiratory Rate 18 TAR Vitals Timing Completion Vitals Blood Pressure 92/51 L 89/54 L 89/56 L Blood Pressure [Right Arm] Blood Pressure Mean 67 Blood Pressure Mean [Right Arm] Blood Pressure Source Automatic Cuff Blood Pressure Source [Right Arm] Blood Pressure Position Supine Blood Pressure Position [Right Arm] 02 Sat by Pulse Oximetry 99 99 99 Oxygen Delivery Method 05/10/24 02:14 05/10/24 02:33 05/10/24 02:38 Temperature 97.9 F 97.9 F 97.9 F Temperature Source Oral Oral Oral Pulse Rate 69 70 70 Pulse Rate [Right Radial] Respiratory Rate 18 18 18 TAR Vitals Timing Pre-Blood Vitals Start Vitals 5 Minute Blood Pressure 91/57 L 102/62 L 100/56 L Blood Pressure [Right Arm] Blood Pressure Mean 68 75 70 Blood Pressure Mean [Right Arm] Blood Pressure Source Automatic Cuff Automatic Cuff Automatic Cuff Blood Pressure Source [Right Arm] Blood Pressure Position Supine Supine Supine Blood Pressure Position [Right Arm] 02 Sat by Pulse Oximetry 100 100 100 Oxygen Delivery Method 05/10/24 02:43 05/10/24 03:02 05/10/24 03:03 Temperature 98.3 F 98.3 F 98.3 F Temperature Source Oral Oral Oral Pulse Rate 73 72 66 Pulse Rate [Right Radial] Respiratory Rate 18 16 16 TAR Vitals Timing 10 Minute 15 Minute 30 Minute Blood Pressure 91/58 L 99/59 L 105/61 L Blood Pressure [Right Arm] Blood Pressure Mean 69 72 75 Blood Pressure Mean [Right Arm] Blood Pressure Source Automatic Cuff Automatic Cuff Automatic Cuff Blood Pressure Source [Right Arm] Blood Pressure Position Supine Supine Supine Blood Pressure Position [Right Arm] 02 Sat by Pulse Oximetry 99 99 100 Oxygen Delivery Method 05/10/24 03:14 05/10/24 04:23 Temperature 98.3 F 98.3 F Temperature Source Oral Oral Pulse Rate 70 78 Pulse Rate [Right Radial] Respiratory Rate 16 16 TAR Vitals Timing Completion Vitals 1 Hour Post Infusion Blood Pressure 109/65 L 115/69 Blood Pressure [Right Arm] Blood Pressure Mean 79 84 Blood Pressure Mean [Right Arm] Blood Pressure Source Automatic Cuff Automatic Cuff Blood Pressure Source [Right Arm] Blood Pressure Position Supine Supine Blood Pressure Position [Right Arm] 02 Sat by Pulse Oximetry 100 100 Oxygen Delivery Method Lab Data Lab results reviewed: Yes I reviewed the patient's lab results. Lab Results 05/10/24 00:00: WBC 5.6, RBC 2.28 L, Hgb 6.1 L*, Hct 19.9 L*, MCV 87.6, MCH 26.8 L, MCHC 30.6 L, RDW 16.9, Plt Count 284, MPV 7.2 L, Neut % (Auto) 76.8, Lymph % (Auto) 11.1, [place] % (Auto) 9.8 H, Eos % (Auto) 2.0, Baso % (Auto) 0.3, Neut # (Auto) 4.3, Lymph # (Auto) 0.6 L, [place] # (Auto) 0.6, Eos # (Auto) 0.1, Baso # (Auto) 0.0, PT 10.3, INR 0.91, Sodium 140, Potassium 3.1 L, Chloride 107, Carbon Dioxide 30, Anion Gap 6.1, BUN 17, Creatinine 0.80, Estimated Creat Clear 84, Estimated GFR 97, Est GFR ( Amer) 118, Glucose 140 H, Calcium 8.8, Total Bilirubin 0.2, AST 28, ALT 19, Alkaline Phosphatase 91, Total Protein 5.1 L, A lbumin 3.0 L, Globulin 2.1, Albumin/Globulin Ratio 1.4, Blood Type O Positive, Antibody Screen Negative, Crossmatch (G) See Detail 05/10/24 00:00 05/10/24 00:00 Orders (Tests/Meds): ED MEDICATIONS Generic Name Dose Route Start Last Admin Trade Name Freq PRN Reason Stop Dose Admin Sodium Chloride 250 mls @ 25 mls/hr 05/10/24 00:30 05/10/24 01:51 Sod Chlor 0.9% 250ml Bag IV 05/11/24 00:29 25 mls/hr .Q10H RADHA Administration Sodium Chloride 250 mls @ 25 mls/hr 05/10/24 02:00 05/10/24 03:19 Sod Chlor 0.9% 250ml Bag IV 05/11/24 01:59 25 mls/hr .Q10H RADHA Administration Discontinued Medications Generic Name Dose Route Start Last Admin Trade Name Freq PRN Reason Stop Dose Admin Potassium Chloride 40 meq 05/10/24 00:34 05/10/24 00:54 Potassium Chloride 20meq Tab PO 05/10/24 00:35 40 meq ONCE ONE Administration ORDERS Category Date Time Status Transfuse RBC's [Red Blood Cells] Stat BBK 05/10/24 00:00 Completed Type and Screen Stat BBK 05/09/24 23:52 Completed CBC w/Auto Diff [Complete Blood Count Auto Diff] Stat Lab 05/09/24 23:52 Completed CMP [Comprehensive Metabolic Panel] Stat Lab 05/09/24 23:52 Completed INR [Prothrombin Time INR] Stat Lab 05/09/24 23:52 Completed Medical Decision Narrative: 63-year-old male, recently diagnosed with radiation proctitis, presents with continued intermittent rectal bleeding, now feeling generally weak.. History was obtained via interactive discussion with patient. On arrival, patient is [afebrile, satting appropriately, alert, oriented x4, GCS 15], moving all extremities spontaneously. Full physical exam performed and significant for pale appearing patient in no acute distress with initially normal vital signs. After patient had been here for a while, his blood pressure started to downtrend with maps in the low 60s. Differential includes but is not limited to radiation proctitis, symptomatic anemia, GI bleed. Workup initiated including CBC CMP INR type and screen. Laboratory workup independently interpreted by me and significant for hemoglobin 6.1. Patient was initiated on 2 unit PRBC transfusion.. Transferred to the [place] was considered, but deemed unnecessary given patient was recently admitted to the ER, has a diagnosis of radiation proctitis and already has the treatment that he was prescribed at that time. There appears to be no acute indication for transfer. Patient may need to be set up with regular outpatient hemoglobin checks and transfusions if his bleeding continues. Given patient history, exam and workup, patient's presentation most likely represents symptomatic anemia and lower GI bleeding secondary to radiation proctitis. After transfusion of 2 units patient reports he feels much better, his color was improved and his vital signs have remained stable. Patient was discharged in stable condition with return precautions.. Procedures Risk/Benefits of Procedure(s) Were Explained: Yes Critical Care Critical Care Time Critical Care Time: Yes Attestation: On 05/09/24, the high probability of a clinically significant, sudden or life threatening deterioration of the following system(s) required my full and direct attention, intervention and personal management. The time I documented below is in addition to time spent performing reported procedures but includes the following listed in this critical care notation. Total Time Total Critical Care Time: 45
[2024-05-09 23:48] VITALS: PULSE 86; O2SAT 100
[2024-05-10] VITALS (41 sets, daily range): BP systolic 83–115; BP diastolic 24–71; PULSE 66–79; RESP 16–18; TEMP 36.6–36.8; O2SAT 95–100
[2024-05-10 00:16] LABS: Basophils % 0.3 % (0.1-2.0); Eosinophils # 0.1 K/mm3 (0.0-0.4); Lymphocytes # 0.6 K/mm3 (0.7-4.5); Lymphocytes % 11.1 % (10-50); Mean Corpuscular HGB Conc 30.6 g/dL (31.8-35.4); Mean Corpuscular Hemoglobin 26.8 pg (27.0-31.2); Mean Corpuscular Volume 87.6 fl (80-94); Mean Platelet Volume 7.2 fl (7.4-10.4); Monocytes # 0.6 K/mm3 (0.1-1.0); Monocytes % 9.8 % (1.7-9.3); Neutrophils # 4.3 K/mm3 (1.8-7.8); Neutrophils % 76.8 % (37.0-80.0); Platelet Count 284 K/mm3 (142-424); Red Blood Count 2.28 M/mm3 (4.60-6.20); Red Cell Distribution Width 16.9 % (11.5-17.5); White Blood Count 5.6 K/mm3 (4.8-10.8)
[2024-05-10 00:22] LABS: Hematocrit 19.9 % (42.0-52.0); Hemoglobin 6.1 g/dL (14.1-18.0)
[2024-05-10 00:24] LABS: Alanine Aminotransferase 19 U/L (12-78); Albumin/Globulin Ratio 1.4 (1.1-1.8); Alkaline Phosphatase 91 U/L (38-126); Anion Gap 6.1 mEq/L (5-15); Aspartate Amino Transferase 28 U/L (17-59); Bilirubin,Total 0.2 mg/dl (0.2-1.3); Blood Urea Nitrogen 17 mg/dl (9-20); Calcium 8.8 mg/dl (8.4-10.2); Carbon Dioxide 30 mmol/L (22.0-30.0); Chloride 107 mmol/L (98-107); Creatinine Clearance Estimated 84 mL/min (50-200); Estimated Glomerular Filt Rate 97 ml/min (>60); GFR (African American) 118 ML/MIN (>60); Globulin 2.1 g/dL (1.3-3.2); Glucose 140 mg/dl (74-100); Potassium 3.1 mmoL/L (3.5-5.1); Sodium 140 mmol/L (136-145); Total Protein,Serum 5.1 g/dl (6.3-8.2)
[2024-05-10 00:25] LABS: INR 0.91 (0.9-1.1); Prothrombin Time 10.3 seconds (10.1-12.5)
[2024-05-10] MEDS: POTASSIUM CHLORIDE 20MEQ TAB 40 MEQ PO (00:54)
[2024-05-10] MEDS: 0.9 % SODIUM CHLORIDE 250 ML 25 ML IV ×2 (01:51→03:19)
--- NOTE | 2024-05-10 02:10 | PC.NURSE ---
called lab; they state they will call when 2nd bag of blood is ready
--- NOTE | 2024-05-10 04:31 | PC.NURSE ---
IV removed. Catheter tip intact. Bleeding controlled.
--- NOTE | 2024-05-10 04:35 | PC.NURSE ---
Patient D/C'd. Waiting on ride to get here.
== END 2024-05-10 04:42 | disposition home or self-care (01) ==
PROVIDERS: Emergency Provider Emergency Medicine
DX: K92.2 Gastrointestinal hemorrhage, unspecified (principal); R53.1 Weakness; D64.9 Anemia, unspecified; K62.7 Radiation proctitis
CPT/HCPCS: 80053; 85025; 85610; 86850; 99291; P9016

== ENCOUNTER 2024-05-13 03:57 | Emergency (ER) | payer OTHER, SELFPAY ==
[2024-05-13 03:58] VITALS: BP 136/75; PULSE 83; RESP 20; TEMP 36.6; O2SAT 98
--- NOTE | 2024-05-13 04:01 | HMH.EDGENADL ---
Discharge Plan Disposition Patient Disposition: Home, Self-Care Prescriptions Prescriptions: No Action atorvastatin 40 mg Tablet 40 mg PO DAILY metoprolol succinate 100 mg Tablet Extended Release 24 Hr 100 mg PO DAILY ropinirole 0.25 mg Tablet 0.25 mg PO DAILY amlodipine 10 mg Tablet 10 mg PO DAILY albuterol 90 mcg/actuation Aerosol 90 mcg INHALATION DAILY Referrals Follow up/Referrals: Provider,Referral, [Primary Care Provider] - See instructions Activity Restrictions/Add. Instructions Additional Instructions/Restrictions: Please follow-up with your primary care provider. Please return to the emergency department if you develop any new or worsening symptoms or become concerned for your health. Clinical Impressions Clinical Impression: Radiation proctitis, Chronic blood loss anemia Instructions Patient Instructions: DI for Gastrointestinal Bleeding Print Language Print Language: Japanese Discharge ED Provider: Pj Gtz Adult HPI General Chief complaint: GI Bleed Stated complaint: GI bleed, shallow breathing Time Seen by Provider: 05/13/24 04:01 History of Present Illness HPI narrative: 63-year-old male, has been seen here multiple times recently, has ongoing radiation proctitis and chronic lower GI bleeding managed at the [place]. He presents again tonight because he feels a little bit more short of breath and his bleeding has gotten a bit worse. He is concerned he could be critically anemic again. He reports no lightheadedness or fainting dizziness etc. Last received a transfusion on Saturday, got 2 units. Related Data Home Medications ?Medication ?Instructions ?Recorded ?Confirmed albuterol 90 mcg/actuation aerosol 90 mcg inhalation DAILY . 02/27/23 02/27/23 inhaler amlodipine 10 mg tablet 10 mg PO DAILY . 02/27/23 02/27/23 atorvastatin 40 mg tablet 40 mg PO DAILY . 02/27/23 02/27/23 metoprolol succinate 100 mg 100 mg PO DAILY High Blood Pressure 02/27/23 02/27/23 tablet,extended release 24 hr ropinirole 0.25 mg tablet 0.25 mg PO DAILY . 02/27/23 02/27/23 Allergies Allergy/AdvReac Type Severity Reaction Status Date / Time No Known Allergies Allergy Verified 02/27/23 09:55 [facility] Disclaimer: The information contained in this section may have been updated after the patient was seen, as this information can be updated by other users. Social History (Updated 02/27/23 @ 14:41 by Steven Stuart MD) Smoking Status: Never smoker alcohol intake: never current occupational status: previously employed Travel in the last 8 weeks: None ROS Obtained: Yes All systems reviewed & no additional complaints except as documented Physical Exam General General appearance: alert and in no apparent distress Head Head exam: atraumatic and normocephalic Eye Eye exam: Present normal appearance, PERRL and EOMI ENT ENT exam: Present normal oropharynx and normal external ear exam Neck Neck exam: Present normal inspection and full ROM Chest Chest inspection: Present normal inspection and symmetric chest wall rise; Absent tenderness Respiratory Respiratory exam: Present normal lung sounds bilaterally; Absent respiratory distress Cardiovascular Cardiovascular exam: Present regular rate and normal rhythm Abdominal Exam Abdominal exam: Present soft; Absent distention, tenderness or guarding Extremities Exam Extremities exam: Present normal inspection; Absent edema or joint swelling Back Exam Back exam: Present normal inspection; Absent tenderness Neurological Exam Neurological exam: Present alert and oriented X3; Absent motor sensory deficit Psychiatric Psychiatric exam: Present normal affect and normal mood Skin Skin exam: Present warm, dry and normal color Lymphatic Lymphatic Findings: no adenopathy Medical Decision Making Medical Records Medical records reviewed: Yes I reviewed the patient's medical records. Screening: Per USPSTF and CDC recommendations, given the prevalence of disease in our region, it is our hospital?s policy to screen for HIV and viral Hepatitis for all patients aged 18 and over and those with ongoing risk factors. Jeff Inquiry Pt receiving controlled substance: No Jeff was queried for this patient: No Vital Signs: 05/13/24 03:58 05/13/24 04:57 Temperature 97.8 F 97.8 F Temperature Source Oral Oral Pulse Rate 79 Pulse Rate [Apical] 83 Respiratory Rate 20 18 Blood Pressure 136/75 Blood Pressure [Right Arm] 136/75 Blood Pressure Mean [Right Arm] 95 Blood Pressure Source Automatic Cuff Blood Pressure Position Sitting 02 Sat by Pulse Oximetry 98 Oxygen Delivery Method Room Air Room Air Lab Data Lab results reviewed: Yes I reviewed the patient's lab results. Lab Results 05/13/24 04:15: WBC 3.7 L, RBC 2.65 L, Hgb 7.6 L, Hct 23.1 L, MCV 87.3, MCH 28.8, MCHC 33.0, RDW 16.4, Plt Count 181 D, MPV 7.5, Neut % (Auto) 72.5, Lymph % (Auto) 13.4, [place] % (Auto) 11.0 H, Eos % (Auto) 2.9, Baso % (Auto) 0.4, Neut # (Auto) 2.7, Lymph # (Auto) 0.5 L, [place] # (Auto) 0.4, Eos # (Auto) 0.1, Baso # (Auto) 0.0, PT 9.8 L, INR 0.86 L, APTT 17.1 L, Sodium 135 L, Potassium 3.3 L, Chloride 108 H, Carbon Dioxide 28, Anion Gap 2.3 L, BUN 18, Creatinine 0.70, Estimated Creat Clear 82, Estimated GFR 114, Est GFR ( Amer) 137, Glucose 136 H, Calcium 8.9, Total Bilirubin 0.2, AST 30, ALT 18, Alkaline Phosphatase 118, Total Protein 5.4 L, Albumin 3.3 L, Globulin 2.1, Albumin/Globulin Ratio 1.6, Blood Type O Positive, Antibody Screen Negative 05/13/24 04:15 05/13/24 04:15 Orders (Tests/Meds): ORDERS Category Date Time Status Type and Screen Stat BBK 05/13/24 04:15 Completed CBC w/Auto Diff [Complete Blood Count Auto Diff] Stat Lab 05/13/24 04:15 Completed CMP [Comprehensive Metabolic Panel] Stat Lab 05/13/24 04:15 Completed Hep C Ab with Reflex to RNA Stat Lab 05/13/24 04:15 Received PT INR [Prothrombin Time INR] Stat Lab 05/13/24 04:15 Completed PTT [Activated Partial Thrombo Time] Stat Lab 05/13/24 04:15 Completed Medical Decision Narrative: 63-year-old male with radiation proctitis and chronic lower GI bleeding presents for worsening of bleeding and some shortness of breath.. History was obtained via interactive discussion with patient. On arrival, patient is [afebrile, hemodynamically stable, satting appropriately, alert, oriented x4, GCS 15], moving all extremities spontaneously. Full physical exam performed and significant for clear lungs bilaterally, patient has better color than the last time he was here. Differential includes but is not limited to acute blood loss anemia, chronic blood loss anemia, coagulopathy. Workup initiated including CBC CMP PT PTT. On re-evaluation, patient [remains afebrile, HD stable.] Laboratory workup independently interpreted by me and significant for hemoglobin 7.6. His hemoglobin was 6.1 the last time is here and that he received 2 units transfusion. That was 3 days ago. Given this, patient's hemoglobin has only dropped approximately 0.5 over the last 3 days. Given he is hemodynamically stable and optically symptomatic, I think that the risks of transfusion outweigh the benefits at this time. He will follow-up for hemoglobin recheck. Return precautions given. Procedures Risk/Benefits of Procedure(s) Were Explained: Yes Critical Care Critical Care Time Critical Care Time: No
[2024-05-13 04:35] LABS: Basophils % 0.4 % (0.1-2.0); Eosinophils # 0.1 K/mm3 (0.0-0.4); Eosinophils % 2.9 % (0.1-12.0); Hematocrit 23.1 % (42.0-52.0); Hemoglobin 7.6 g/dL (14.1-18.0); Lymphocytes # 0.5 K/mm3 (0.7-4.5); Lymphocytes % 13.4 % (10-50); Mean Corpuscular Hemoglobin 28.8 pg (27.0-31.2); Mean Corpuscular Volume 87.3 fl (80-94); Mean Platelet Volume 7.5 fl (7.4-10.4); Monocytes # 0.4 K/mm3 (0.1-1.0); Neutrophils # 2.7 K/mm3 (1.8-7.8); Neutrophils % 72.5 % (37.0-80.0); Platelet Count 181 K/mm3 (142-424); Red Blood Count 2.65 M/mm3 (4.60-6.20); Red Cell Distribution Width 16.4 % (11.5-17.5); White Blood Count 3.7 K/mm3 (4.8-10.8)
--- NOTE | 2024-05-13 04:37 | PC.NURSE ---
20G USG IV placed to left upper arm
[2024-05-13 04:43] LABS: Albumin Level 3.3 g/dl (3.5-5.0); Chloride 108 mmol/L (98-107); Potassium 3.3 mmoL/L (3.5-5.1); Sodium 135 mmol/L (136-145)
[2024-05-13 04:46] LABS: Alanine Aminotransferase 18 U/L (12-78); Albumin/Globulin Ratio 1.6 (1.1-1.8); Alkaline Phosphatase 118 U/L (38-126); Anion Gap 2.3 mEq/L (5-15); Aspartate Amino Transferase 30 U/L (17-59); Bilirubin,Total 0.2 mg/dl (0.2-1.3); Blood Urea Nitrogen 18 mg/dl (9-20); Calcium 8.9 mg/dl (8.4-10.2); Carbon Dioxide 28 mmol/L (22.0-30.0); Creatinine Clearance Estimated 82 mL/min (50-200); Estimated Glomerular Filt Rate 114 ml/min (>60); GFR (African American) 137 ML/MIN (>60); Globulin 2.1 g/dL (1.3-3.2); Glucose 136 mg/dl (74-100); Total Protein,Serum 5.4 g/dl (6.3-8.2)
[2024-05-13 04:57] VITALS: BP 136/75; PULSE 79; RESP 18; TEMP 36.6; O2SAT 99
[2024-05-13 05:03] LABS: INR 0.86 (0.9-1.1); Prothrombin Time 9.8 seconds (10.1-12.5)
[2024-05-13 05:05] LABS: Activated Partial Thrombo Time 17.1 seconds (22.8-30.6)
[2024-05-14 08:17] LABS: HCV Ab Non Reactive (Non Reactive)
== END 2024-05-13 05:00 | disposition home or self-care (01) ==
LOC: ER 04:10
PROVIDERS: Emergency Provider Emergency Medicine
DX: K62.7 Radiation proctitis (principal); D50.0 Iron deficiency anemia secondary to blood loss (chronic); R06.02 Shortness of breath; K92.2 Gastrointestinal hemorrhage, unspecified
CPT/HCPCS: 80053; 85025; 85610; 85730; 86803; 86850; 99283

== ENCOUNTER 2024-05-19 02:07 | Emergency (ER) | payer OTHER, SELFPAY ==
[2024-05-19] VITALS (62 sets, daily range): BP systolic 78–160; BP diastolic 39–80; PULSE 67–99; RESP 10–22; TEMP 36.5–37.2; O2SAT 97–100; BMI 25.1
--- NOTE | 2024-05-19 02:18 | ED_ITS ---
Discharge Plan Disposition Patient Disposition: Home, Self-Care Prescriptions Prescriptions: No Action atorvastatin 40 mg Tablet 40 mg PO DAILY metoprolol succinate 100 mg Tablet Extended Release 24 Hr 100 mg PO DAILY ropinirole 0.25 mg Tablet 0.25 mg PO DAILY amlodipine 10 mg Tablet 10 mg PO DAILY albuterol 90 mcg/actuation Aerosol 90 mcg INHALATION DAILY Referrals Follow up/Referrals: Provider,Referral, [Primary Care Provider] - See instructions Activity Restrictions/Add. Instructions Additional Instructions/Restrictions: Please follow-up with your primary care provider. Please return to the emergency department if you develop any new or worsening symptoms or become concerned for your health. Clinical Impressions Clinical Impression: Chronic blood loss anemia, Radiation proctitis Instructions Patient Instructions: DI for Gastrointestinal Bleeding Print Language Print Language: Vietnamese Discharge ED Provider: Alexsandra Mckeon General Adult HPI <Pj Gtz MD - Last Filed: 05/19/24 07:08> General Chief complaint: GI Bleed Stated complaint: sob, weakness, pale, GI bleed Time Seen by Provider: 05/19/24 02:10 Mode of Arrival: Ambulatory Source of Information: Patient Limitations: No Limitations Description of Symptoms (Recalled from ER Triage Doc. by RN): Pt here w/ c/o rectal bleeding starting today around 1800. pt w/ radiation proctitis. History of Present Illness HPI narrative: 63-year-old male with continued rectal bleeding. He has a history of radiation proctitis and has been seen here multiple times for transfusions. [facility] He reports that he has not had had his hemoglobin checked since last time he was here, 6 days ago. He reports that his bleeding has been intermittent at home. The bleeding started up again and he feels more pale and tired tonight, prompting presentation. Related Data Home Medications ?Medication ?Instructions ?Recorded ?Confirmed albuterol 90 mcg/actuation aerosol 90 mcg inhalation DAILY . 02/27/23 02/27/23 inhaler amlodipine 10 mg tablet 10 mg PO DAILY . 02/27/23 02/27/23 atorvastatin 40 mg tablet 40 mg PO DAILY . 02/27/23 02/27/23 metoprolol succinate 100 mg 100 mg PO DAILY High Blood Pressure 02/27/23 02/27/23 tablet,extended release 24 hr ropinirole 0.25 mg tablet 0.25 mg PO DAILY . 02/27/23 02/27/23 Allergies Allergy/AdvReac Type Severity Reaction Status Date / Time No Known Allergies Allergy Verified 02/27/23 09:55 PFS <Pj Gtz MD - Last Filed: 05/19/24 07:08> [facility] Disclaimer: The information contained in this section may have been updated after the patient was seen, as this information can be updated by other users. Social History (Updated 02/27/23 @ 14:41 by Steven Stuart MD) Smoking Status: Never smoker alcohol intake: never current occupational status: previously employed Travel in the last 8 weeks: None Have you lived/traveled outside [place] in past 30 days?: No Contact w/someone who lives/traveled outside [place] past 30 days?: No Exposure to someone with infectious disease in past 14 days?: No Do you have a fever (greater than 100.4 F or 38 C)?: No Have you tested positive for COVID-19: No Exposed to someone with COVID-19 in past 14 days?: No Do you have a sore throat?: No Do you have a cough?: No Do you have any weakness?: Yes Do you have any diarrhea?: No Are you experiencing any unusual bleeding?: Yes Do you have any muscle aches/pain?: No Do you have any abdominal pain?: No Are you experiencing loss of taste or smell?: No <Pj Gtz MD - Last Filed: 05/19/24 07:08> ROS Obtained: Yes All systems reviewed & no additional complaints except as documented Physical Exam <Pj Gtz MD - Last Filed: 05/19/24 07:08> General General appearance: alert and in no apparent distress Head Head exam: atraumatic and normocephalic Eye Eye exam: Present normal appearance, PERRL and EOMI ENT ENT exam: Present normal oropharynx and normal external ear exam Neck Neck exam: Present normal inspection and full ROM Chest Chest inspection: Present normal inspection and symmetric chest wall rise; Absent tenderness Respiratory Respiratory exam: Present normal lung sounds bilaterally; Absent respiratory distress Cardiovascular Cardiovascular exam: Present regular rate and normal rhythm Abdominal Exam Abdominal exam: Present soft; Absent distention, tenderness or guarding Extremities Exam Extremities exam: Present normal inspection; Absent edema or joint swelling Back Exam Back exam: Present normal inspection; Absent tenderness Neurological Exam Neurological exam: Present alert and oriented X3; Absent motor sensory deficit Psychiatric Psychiatric exam: Present normal affect and normal mood Skin Skin exam: Present warm, dry and pallor Lymphatic Lymphatic Findings: no adenopathy Medical Decision Making <Pj Gtz MD - Last Filed: 05/19/24 07:08> Medical Records Medical records reviewed: Yes I reviewed the patient's medical records. Screening: Per USPSTF and CDC recommendations, given the prevalence of disease in our region, it is our hospital?s policy to screen for HIV and viral Hepatitis for all patients aged 18 and over and those with ongoing risk factors. Jeff Inquiry Pt receiving controlled substance: No Jeff was queried for this patient: No Vital Signs: 05/19/24 02:08 05/19/24 02:49 05/19/24 02:57 Temperature 97.8 F Temperature Source Tympanic Pulse Rate 74 76 Pulse Rate [Apical] 82 Respiratory Rate 18 14 13 TAR Vitals Timing Blood Pressure 85/50 L 80/42 L Blood Pressure [Right Arm] 99/57 L Blood Pressure Mean 61 51 Blood Pressure Mean [Right Arm] 71 Blood Pressure Source Blood Pressure Position 02 Sat by Pulse Oximetry 97 99 100 Oxygen Delivery Method Room Air Room Air Room Air 05/19/24 03:04 05/19/24 03:04 05/19/24 03:22 Temperature Temperature Source Pulse Rate 72 75 74 Pulse Rate [Apical] Respiratory Rate 18 14 14 TAR Vitals Timing Blood Pressure 86/48 L 78/39 L 89/49 L Blood Pressure [Right Arm] Blood Pressure Mean 51 62 Blood Pressure Mean [Right Arm] Blood Pressure Source Automatic Cuff Blood Pressure Position Sitting 02 Sat by Pulse Oximetry 100 100 100 Oxygen Delivery Method Room Air Room Air Room Air 05/19/24 03:30 05/19/24 04:00 05/19/24 04:19 Temperature Temperature Source Pulse Rate 74 69 69 Pulse Rate [Apical] Respiratory Rate 15 15 13 TAR Vitals Timing Blood Pressure 82/47 L 83/45 L 107/52 L Blood Pressure [Right Arm] Blood Pressure Mean 56 51 70 Blood Pressure Mean [Right Arm] Blood Pressure Source Blood Pressure Position 02 Sat by Pulse Oximetry 100 100 100 Oxygen Delivery Method Room Air Room Air Room Air 05/19/24 04:25 05/19/24 04:30 05/19/24 04:30 Temperature 97.8 F 97.8 F Temperature Source Oral Oral Pulse Rate 69 71 74 Pulse Rate [Apical] Respiratory Rate 18 18 14 TAR Vitals Timing Pre-Blood Vitals Start Vitals Blood Pressure 107/52 L 94/51 L 94/51 L Blood Pressure [Right Arm] Blood Pressure Mean 70 65 64 Blood Pressure Mean [Right Arm] Blood Pressure Source Automatic Cuff Automatic Cuff Blood Pressure Position Supine Sitting 02 Sat by Pulse Oximetry 100 100 100 Oxygen Delivery Method Room Air 05/19/24 04:32 05/19/24 04:35 05/19/24 04:35 Temperature 98.4 F Temperature Source Oral Pulse Rate 73 72 Pulse Rate [Apical] Respiratory Rate 15 16 12 TAR Vitals Timing 5 Minute Blood Pressure 93/48 L 92/59 L 92/59 L Blood Pressure [Right Arm] Blood Pressure Mean 61 70 67 Blood Pressure Mean [Right Arm] Blood Pressure Source Automatic Cuff Blood Pressure Position Sitting 02 Sat by Pulse Oximetry 100 100 99 Oxygen Delivery Method Room Air Room Air 05/19/24 04:40 05/19/24 04:40 05/19/24 04:45 Temperature 97.9 F 97.7 F Temperature Source Oral Oral Pulse Rate 74 73 Pulse Rate [Apical] Respiratory Rate 16 13 16 TAR Vitals Timing 10 Minute 15 Minute Blood Pressure 94/50 L 94/50 L 91/50 L Blood Pressure [Right Arm] Blood Pressure Mean 64 62 63 Blood Pressure Mean [Right Arm] Blood Pressure Source Automatic Cuff Automatic Cuff Blood Pressure Position Sitting Sitting 02 Sat by Pulse Oximetry 100 99 100 Oxygen Delivery Method 05/19/24 04:45 05/19/24 04:50 05/19/24 04:55 Temperature Temperature Source Pulse Rate 75 74 75 Pulse Rate [Apical] Respiratory Rate 13 14 15 TAR Vitals Timing Blood Pressure 91/50 L 83/49 L 89/47 L Blood Pressure [Right Arm] Blood Pressure Mean 66 58 58 Blood Pressure Mean [Right Arm] Blood Pressure Source Blood Pressure Position 02 Sat by Pulse Oximetry 99 100 100 Oxygen Delivery Method Room Air Room Air Room Air 05/19/24 05:00 05/19/24 05:00 05/19/24 05:15 Temperature 98.2 F 98.0 F Temperature Source Oral Oral Pulse Rate 75 73 77 Pulse Rate [Apical] Respiratory Rate 14 12 14 TAR Vitals Timing 30 Minute 45 Minute Blood Pressure 97/60 L 97/60 L 108/60 L Blood Pressure [Right Arm] Blood Pressure Mean 72 69 76 Blood Pressure Mean [Right Arm] Blood Pressure Source Automatic Cuff Automatic Cuff Blood Pressure Position Sitting Sitting 02 Sat by Pulse Oximetry 100 100 100 Oxygen Delivery Method Room Air 05/19/24 05:15 05/19/24 05:30 05/19/24 05:30 Temperature 98.0 F Temperature Source Oral Pulse Rate 74 75 74 Pulse Rate [Apical] Respiratory Rate 14 16 12 TAR Vitals Timing 60 Minute Blood Pressure 108/60 L 98/59 L 98/59 L Blood Pressure [Right Arm] Blood Pressure Mean 79 72 70 Blood Pressure Mean [Right Arm] Blood Pressure Source Automatic Cuff Blood Pressure Position Sitting 02 Sat by Pulse Oximetry 100 100 100 Oxygen Delivery Method Room Air Room Air 05/19/24 05:45 05/19/24 06:00 05/19/24 06:08 Temperature 98.6 F Temperature Source Oral Pulse Rate 75 76 76 Pulse Rate [Apical] Respiratory Rate 13 12 16 TAR Vitals Timing Completion Vitals Blood Pressure 102/54 L 113/63 113/63 Blood Pressure [Right Arm] Blood Pressure Mean 74 75 79 Blood Pressure Mean [Right Arm] Blood Pressure Source Automatic Cuff Blood Pressure Position Sitting 02 Sat by Pulse Oximetry 100 100 100 Oxygen Delivery Method Room Air Room Air 05/19/24 06:15 05/19/24 06:18 05/19/24 06:20 Temperature 98.6 F 98.6 F Temperature Source Oral Oral Pulse Rate 77 80 78 Pulse Rate [Apical] Respiratory Rate 13 15 14 TAR Vitals Timing Pre-Blood Vitals Start Vitals Blood Pressure 115/58 L 115/58 L 109/62 L Blood Pressure [Right Arm] Blood Pressure Mean 82 77 77 Blood Pressure Mean [Right Arm] Blood Pressure Source Automatic Cuff Automatic Cuff Blood Pressure Position Sitting Sitting 02 Sat by Pulse Oximetry 100 100 100 Oxygen Delivery Method Room Air 05/19/24 06:20 05/19/24 06:22 05/19/24 06:25 Temperature 98.3 F Temperature Source Oral Pulse Rate 80 80 80 Pulse Rate [Apical] Respiratory Rate 13 15 16 TAR Vitals Timing 5 Minute Blood Pressure 109/62 L 116/63 109/56 L Blood Pressure [Right Arm] Blood Pressure Mean 74 74 73 Blood Pressure Mean [Right Arm] Blood Pressure Source Automatic Cuff Blood Pressure Position Sitting 02 Sat by Pulse Oximetry 100 100 100 Oxygen Delivery Method Room Air Room Air 05/19/24 06:30 05/19/24 06:35 05/19/24 06:50 Temperature 98.3 F 98.0 F 98.3 F Temperature Source Oral Oral Oral Pulse Rate 84 81 84 Pulse Rate [Apical] Respiratory Rate 15 14 13 TAR Vitals Timing 10 Minute 15 Minute 30 Minute Blood Pressure 115/62 108/58 L 116/65 Blood Pressure [Right Arm] Blood Pressure Mean 79 74 82 Blood Pressure Mean [Right Arm] Blood Pressure Source Automatic Cuff Automatic Cuff Automatic Cuff Blood Pressure Position Sitting Supine Sitting 02 Sat by Pulse Oximetry 100 100 100 Oxygen Delivery Method 05/19/24 07:05 05/19/24 07:08 05/19/24 07:15 Temperature 98.0 F 98.0 F Temperature Source Oral Oral Pulse Rate 83 83 82 Pulse Rate [Apical] Respiratory Rate 14 14 17 TAR Vitals Timing 45 Minute 1 Hour Post Infusion Blood Pressure 118/65 118/65 119/68 Blood Pressure [Right Arm] Blood Pressure Mean 82 82 Blood Pressure Mean [Right Arm] Blood Pressure Source Automatic Cuff Automatic Cuff Blood Pressure Position Sitting Sitting 02 Sat by Pulse Oximetry 100 100 100 Oxygen Delivery Method 05/19/24 07:20 05/19/24 07:20 05/19/24 07:25 Temperature 98.0 F Temperature Source Oral Pulse Rate 79 82 86 Pulse Rate [Apical] Respiratory Rate 14 14 15 TAR Vitals Timing 60 Minute Blood Pressure 115/67 115/67 117/70 Blood Pressure [Right Arm] Blood Pressure Mean 83 Blood Pressure Mean [Right Arm] Blood Pressure Source Automatic Cuff Blood Pressure Position Sitting 02 Sat by Pulse Oximetry 100 100 100 Oxygen Delivery Method 05/19/24 07:30 05/19/24 07:30 05/19/24 07:35 Temperature 98.0 F Temperature Source Oral Pulse Rate 83 86 81 Pulse Rate [Apical] Respiratory Rate 15 15 14 TAR Vitals Timing Completion Vitals Blood Pressure 123/69 123/69 118/65 Blood Pressure [Right Arm] Blood Pressure Mean 87 Blood Pressure Mean [Right Arm] Blood Pressure Source Automatic Cuff Blood Pressure Position Sitting 02 Sat by Pulse Oximetry 100 100 99 Oxygen Delivery Method 05/19/24 07:40 05/19/24 07:49 05/19/24 07:50 Temperature Temperature Source Pulse Rate 82 Pulse Rate [Apical] Respiratory Rate 14 18 14 TAR Vitals Timing Blood Pressure 111/69 126/66 Blood Pressure [Right Arm] Blood Pressure Mean Blood Pressure Mean [Right Arm] Blood Pressure Source Blood Pressure Position 02 Sat by Pulse Oximetry 100 Oxygen Delivery Method 05/19/24 07:55 05/19/24 08:00 05/19/24 08:00 Temperature 98.4 F Temperature Source Oral Pulse Rate 81 79 82 Pulse Rate [Apical] Respiratory Rate 18 15 13 TAR Vitals Timing Pre-Blood Vitals Blood Pressure 123/65 116/67 116/67 Blood Pressure [Right Arm] Blood Pressure Mean 83 Blood Pressure Mean [Right Arm] Blood Pressure Source Automatic Cuff Blood Pressure Position Sitting 02 Sat by Pulse Oximetry 100 100 99 Oxygen Delivery Method 05/19/24 08:05 05/19/24 08:07 05/19/24 08:10 Temperature 98.4 F 97.8 F Temperature Source Oral Oral Pulse Rate 85 84 87 Pulse Rate [Apical] Respiratory Rate 13 12 14 TAR Vitals Timing Start Vitals 5 Minute Blood Pressure 120/63 120/63 121/63 Blood Pressure [Right Arm] Blood Pressure Mean 82 82 Blood Pressure Mean [Right Arm] Blood Pressure Source Automatic Cuff Automatic Cuff Blood Pressure Position Sitting Sitting 02 Sat by Pulse Oximetry 100 100 100 Oxygen Delivery Method 05/19/24 08:10 05/19/24 08:15 05/19/24 08:15 Temperature 98.1 F Temperature Source Oral Pulse Rate 83 86 86 Pulse Rate [Apical] Respiratory Rate 14 15 15 TAR Vitals Timing 10 Minute Blood Pressure 121/63 131/67 131/67 Blood Pressure [Right Arm] Blood Pressure Mean 88 Blood Pressure Mean [Right Arm] Blood Pressure Source Automatic Cuff Blood Pressure Position Sitting 02 Sat by Pulse Oximetry 100 100 100 Oxygen Delivery Method 05/19/24 08:20 05/19/24 08:20 05/19/24 08:27 Temperature 98.2 F Temperature Source Oral Pulse Rate 86 87 94 H Pulse Rate [Apical] Respiratory Rate 14 13 12 TAR Vitals Timing 15 Minute Blood Pressure 123/67 123/67 160/72 H Blood Pressure [Right Arm] Blood Pressure Mean 85 Blood Pressure Mean [Right Arm] Blood Pressure Source Automatic Cuff Blood Pressure Position Sitting 02 Sat by Pulse Oximetry 100 100 100 Oxygen Delivery Method 05/19/24 08:30 05/19/24 08:35 05/19/24 08:35 Temperature 98.4 F Temperature Source Oral Pulse Rate 98 H 86 94 H Pulse Rate [Apical] Respiratory Rate 10 L 12 15 TAR Vitals Timing 30 Minute Blood Pressure 123/69 106/72 L Blood Pressure [Right Arm] Blood Pressure Mean 83 Blood Pressure Mean [Right Arm] Blood Pressure Source Blood Pressure Position 02 Sat by Pulse Oximetry 99 100 99 Oxygen Delivery Method 05/19/24 08:41 05/19/24 08:45 05/19/24 08:50 Temperature Temperature Source Pulse Rate 85 87 99 H Pulse Rate [Apical] Respiratory Rate 11 L 17 15 TAR Vitals Timing Blood Pressure 135/66 133/68 133/74 Blood Pressure [Right Arm] Blood Pressure Mean Blood Pressure Mean [Right Arm] Blood Pressure Source Blood Pressure Position 02 Sat by Pulse Oximetry 100 99 99 Oxygen Delivery Method 05/19/24 08:50 05/19/24 08:55 05/19/24 09:00 Temperature 98.1 F Temperature Source Oral Pulse Rate 85 87 86 Pulse Rate [Apical] Respiratory Rate 14 22 15 TAR Vitals Timing 45 Minute Blood Pressure 140/74 140/74 134/71 Blood Pressure [Right Arm] Blood Pressure Mean 96 Blood Pressure Mean [Right Arm] Blood Pressure Source Blood Pressure Position 02 Sat by Pulse Oximetry 99 99 98 Oxygen Delivery Method 05/19/24 09:05 05/19/24 09:05 05/19/24 09:10 Temperature 98.9 F Temperature Source Oral Pulse Rate 88 88 90 Pulse Rate [Apical] Respiratory Rate 16 13 12 TAR Vitals Timing 60 Minute Blood Pressure 136/70 157/72 H 140/71 Blood Pressure [Right Arm] Blood Pressure Mean 100 Blood Pressure Mean [Right Arm] Blood Pressure Source Blood Pressure Position 02 Sat by Pulse Oximetry 98 99 97 Oxygen Delivery Method 05/19/24 09:15 05/19/24 09:20 05/19/24 10:05 Temperature 98.6 F Temperature Source Oral Pulse Rate 94 H 87 86 Pulse Rate [Apical] Respiratory Rate 13 13 18 TAR Vitals Timing Completion Vitals Blood Pressure 140/80 136/70 144/78 H Blood Pressure [Right Arm] Blood Pressure Mean 100 Blood Pressure Mean [Right Arm] Blood Pressure Source Automatic Cuff Blood Pressure Position Sitting 02 Sat by Pulse Oximetry 100 99 99 Oxygen Delivery Method 05/19/24 10:14 05/19/24 10:32 Temperature 98.2 F 98.6 F Temperature Source Pulse Rate 67 86 Pulse Rate [Apical] Respiratory Rate 20 18 TAR Vitals Timing Blood Pressure 143/78 H 143/78 H Blood Pressure [Right Arm] Blood Pressure Mean Blood Pressure Mean [Right Arm] Blood Pressure Source Blood Pressure Position 02 Sat by Pulse Oximetry Oxygen Delivery Method Room Air Room Air Lab Data Lab results reviewed: Yes I reviewed the patient's lab results. Lab Results 05/19/24 02:45: WBC 4.0 L, RBC 1.86 L*, Hgb 4.9 L*, Hct 15.9 L*, MCV 85.4, MCH 26.5 L, MCHC 31.0 L, RDW 16.7, Plt Count 259, MPV 7.7, Neut % (Auto) 69.3, Lymph % (Auto) 13.3, Zapata % (Auto) 14.3 H, Eos % (Auto) 2.4, Baso % (Auto) 0.7, Neut # (Auto) 2.8, Lymph # (Auto) 0.5 L, Zapata # (Auto) 0.6, Eos # (Auto) 0.1, Baso # (Auto) 0.0, PT 10.0 L, INR 0.88 L, APTT 21.3 L, Sodium 135 L, Potassium 3.2 L, C hloride 108 H, Carbon Dioxide 27, Anion Gap 3.2 L, BUN 21 H, Creatinine 0.90, Estimated Creat Clear 81, Estimated GFR 85, Est GFR ( Amer) 103, Glucose 127 H, Calcium 8.7, Total Bilirubin 0.2, AST 25, ALT 17, Alkaline Phosphatase 96, Total Protein 5.0 L, Albumin 3.0 L, Globulin 2.0, Albumin/Globulin Ratio 1.5, Blood Type O Positive, Antibody Screen Negative, Crossmatch (AHG) See Detail 05/19/24 02:45 05/19/24 02:45 Orders (Tests/Meds): ED MEDICATIONS Discontinued Medications Generic Name Dose Route Start Last Admin Trade Name Freq PRN Reason Stop Dose Admin Acetaminophen 1,000 mg 05/19/24 07:17 05/19/24 07:32 Acetaminophen 500mg Tab PO 05/19/24 07:18 1,000 mg ONCE ONE Administration Sodium Chloride 250 mls @ 25 mls/hr 05/19/24 03:15 05/19/24 03:20 Sod Chlor 0.9% 250ml Bag IV 05/20/24 03:14 25 mls/hr .Q10H RADHA Administration Calcium Gluconate/Sodium Chloride 2 gm in 100 mls @ 50 mls/hr 05/19/24 03:16 05/19/24 03:21 Calcium Gluconate 2,000mg/100ml Nacl Premix IV 05/19/24 05:15 50 mls/hr ONCE ONE Administration Potassium Chloride 40 meq 05/19/24 03:17 05/19/24 03:25 Potassium Chloride 20meq Tab PO 05/19/24 03:18 40 meq ONCE ONE Administration ORDERS Category Date Time Status Transfuse RBC's [Red Blood Cells] Stat BBK 05/19/24 02:45 Completed Type and Screen Stat BBK 05/19/24 02:45 Completed CBC w/Auto Diff [Complete Blood Count Auto Diff] Stat Lab 05/19/24 02:45 Completed CMP [Comprehensive Metabolic Panel] Stat Lab 05/19/24 02:45 Completed INR [Prothrombin Time INR] Stat Lab 05/19/24 02:45 Completed PTT [Activated Partial Thrombo Time] Stat Lab 05/19/24 02:45 Completed Medical Decision Narrative: 63-year-old male with history of radiation proctitis and acute on chronic blood loss anemia presents for continued bleeding and weakness.. History was obtained via interactive discussion with patient, chart review, prior visits. On arrival, patient is afebrile, low normotensive, moving all extremities spontaneously. Full physical exam performed and significant for pale man, otherwise well- appearing. Differential includes but is not limited to upper GI bleed, lower GI bleed, coagulopathy, symptomatic anemia. Workup initiated including CBC CMP PT PTT type and screen. On re-evaluation, patient blood pressure is borderline low, MAP of 60. He remains well-appearing. Laboratory workup independently interpreted by me and significant for hemoglobin 4.9, 3 units packed red blood cell transfusion ordered.. Patient remains stable after 1 unit, at this time care was handed off to oncoming physician. <Alexsandra Mckeon, DO - Last Filed: 05/19/24 12:33> Vital Signs: 05/19/24 02:08 05/19/24 02:49 05/19/24 02:57 Temperature 97.8 F Temperature Source Tympanic Pulse Rate 74 76 Pulse Rate [Apical] 82 Respiratory Rate 18 14 13 TAR Vitals Timing Blood Pressure 85/50 L 80/42 L Blood Pressure [Right Arm] 99/57 L Blood Pressure Mean 61 51 Blood Pressure Mean [Right Arm] 71 Blood Pressure Source Blood Pressure Position 02 Sat by Pulse Oximetry 97 99 100 Oxygen Delivery Method Room Air Room Air Room Air 05/19/24 03:04 05/19/24 03:04 05/19/24 03:22 Temperature Temperature Source Pulse Rate 72 75 74 Pulse Rate [Apical] Respiratory Rate 18 14 14 TAR Vitals Timing Blood Pressure 86/48 L 78/39 L 89/49 L Blood Pressure [Right Arm] Blood Pressure Mean 51 62 Blood Pressure Mean [Right Arm] Blood Pressure Source Automatic Cuff Blood Pressure Position Sitting 02 Sat by Pulse Oximetry 100 100 100 Oxygen Delivery Method Room Air Room Air Room Air 05/19/24 03:30 05/19/24 04:00 05/19/24 04:19 Temperature Temperature Source Pulse Rate 74 69 69 Pulse Rate [Apical] Respiratory Rate 15 15 13 TAR Vitals Timing Blood Pressure 82/47 L 83/45 L 107/52 L Blood Pressure [Right Arm] Blood Pressure Mean 56 51 70 Blood Pressure Mean [Right Arm] Blood Pressure Source Blood Pressure Position 02 Sat by Pulse Oximetry 100 100 100 Oxygen Delivery Method Room Air Room Air Room Air 05/19/24 04:25 05/19/24 04:30 05/19/24 04:30 Temperature 97.8 F 97.8 F Temperature Source Oral Oral Pulse Rate 69 71 74 Pulse Rate [Apical] Respiratory Rate 18 18 14 TAR Vitals Timing Pre-Blood Vitals Start Vitals Blood Pressure 107/52 L 94/51 L 94/51 L Blood Pressure [Right Arm] Blood Pressure Mean 70 65 64 Blood Pressure Mean [Right Arm] Blood Pressure Source Automatic Cuff Automatic Cuff Blood Pressure Position Supine Sitting 02 Sat by Pulse Oximetry 100 100 100 Oxygen Delivery Method Room Air 05/19/24 04:32 05/19/24 04:35 05/19/24 04:35 Temperature 98.4 F Temperature Source Oral Pulse Rate 73 72 Pulse Rate [Apical] Respiratory Rate 15 16 12 TAR Vitals Timing 5 Minute Blood Pressure 93/48 L 92/59 L 92/59 L Blood Pressure [Right Arm] Blood Pressure Mean 61 70 67 Blood Pressure Mean [Right Arm] Blood Pressure Source Automatic Cuff Blood Pressure Position Sitting 02 Sat by Pulse Oximetry 100 100 99 Oxygen Delivery Method Room Air Room Air 05/19/24 04:40 05/19/24 04:40 05/19/24 04:45 Temperature 97.9 F 97.7 F Temperature Source Oral Oral Pulse Rate 74 73 Pulse Rate [Apical] Respiratory Rate 16 13 16 TAR Vitals Timing 10 Minute 15 Minute Blood Pressure 94/50 L 94/50 L 91/50 L Blood Pressure [Right Arm] Blood Pressure Mean 64 62 63 Blood Pressure Mean [Right Arm] Blood Pressure Source Automatic Cuff Automatic Cuff Blood Pressure Position Sitting Sitting 02 Sat by Pulse Oximetry 100 99 100 Oxygen Delivery Method 05/19/24 04:45 05/19/24 04:50 05/19/24 04:55 Temperature Temperature Source Pulse Rate 75 74 75 Pulse Rate [Apical] Respiratory Rate 13 14 15 TAR Vitals Timing Blood Pressure 91/50 L 83/49 L 89/47 L Blood Pressure [Right Arm] Blood Pressure Mean 66 58 58 Blood Pressure Mean [Right Arm] Blood Pressure Source Blood Pressure Position 02 Sat by Pulse Oximetry 99 100 100 Oxygen Delivery Method Room Air Room Air Room Air 05/19/24 05:00 05/19/24 05:00 05/19/24 05:15 Temperature 98.2 F 98.0 F Temperature Source Oral Oral Pulse Rate 75 73 77 Pulse Rate [Apical] Respiratory Rate 14 12 14 TAR Vitals Timing 30 Minute 45 Minute Blood Pressure 97/60 L 97/60 L 108/60 L Blood Pressure [Right Arm] Blood Pressure Mean 72 69 76 Blood Pressure Mean [Right Arm] Blood Pressure Source Automatic Cuff Automatic Cuff Blood Pressure Position Sitting Sitting 02 Sat by Pulse Oximetry 100 100 100 Oxygen Delivery Method Room Air 05/19/24 05:15 05/19/24 05:30 05/19/24 05:30 Temperature 98.0 F Temperature Source Oral Pulse Rate 74 75 74 Pulse Rate [Apical] Respiratory Rate 14 16 12 TAR Vitals Timing 60 Minute Blood Pressure 108/60 L 98/59 L 98/59 L Blood Pressure [Right Arm] Blood Pressure Mean 79 72 70 Blood Pressure Mean [Right Arm] Blood Pressure Source Automatic Cuff Blood Pressure Position Sitting 02 Sat by Pulse Oximetry 100 100 100 Oxygen Delivery Method Room Air Room Air 05/19/24 05:45 05/19/24 06:00 05/19/24 06:08 Temperature 98.6 F Temperature Source Oral Pulse Rate 75 76 76 Pulse Rate [Apical] Respiratory Rate 13 12 16 TAR Vitals Timing Completion Vitals Blood Pressure 102/54 L 113/63 113/63 Blood Pressure [Right Arm] Blood Pressure Mean 74 75 79 Blood Pressure Mean [Right Arm] Blood Pressure Source Automatic Cuff Blood Pressure Position Sitting 02 Sat by Pulse Oximetry 100 100 100 Oxygen Delivery Method Room Air Room Air 05/19/24 06:15 05/19/24 06:18 05/19/24 06:20 Temperature 98.6 F 98.6 F Temperature Source Oral Oral Pulse Rate 77 80 78 Pulse Rate [Apical] Respiratory Rate 13 15 14 TAR Vitals Timing Pre-Blood Vitals Start Vitals Blood Pressure 115/58 L 115/58 L 109/62 L Blood Pressure [Right Arm] Blood Pressure Mean 82 77 77 Blood Pressure Mean [Right Arm] Blood Pressure Source Automatic Cuff Automatic Cuff Blood Pressure Position Sitting Sitting 02 Sat by Pulse Oximetry 100 100 100 Oxygen Delivery Method Room Air 05/19/24 06:20 05/19/24 06:22 05/19/24 06:25 Temperature 98.3 F Temperature Source Oral Pulse Rate 80 80 80 Pulse Rate [Apical] Respiratory Rate 13 15 16 TAR Vitals Timing 5 Minute Blood Pressure 109/62 L 116/63 109/56 L Blood Pressure [Right Arm] Blood Pressure Mean 74 74 73 Blood Pressure Mean [Right Arm] Blood Pressure Source Automatic Cuff Blood Pressure Position Sitting 02 Sat by Pulse Oximetry 100 100 100 Oxygen Delivery Method Room Air Room Air 05/19/24 06:30 05/19/24 06:35 05/19/24 06:50 Temperature 98.3 F 98.0 F 98.3 F Temperature Source Oral Oral Oral Pulse Rate 84 81 84 Pulse Rate [Apical] Respiratory Rate 15 14 13 TAR Vitals Timing 10 Minute 15 Minute 30 Minute Blood Pressure 115/62 108/58 L 116/65 Blood Pressure [Right Arm] Blood Pressure Mean 79 74 82 Blood Pressure Mean [Right Arm] Blood Pressure Source Automatic Cuff Automatic Cuff Automatic Cuff Blood Pressure Position Sitting Supine Sitting 02 Sat by Pulse Oximetry 100 100 100 Oxygen Delivery Method 05/19/24 07:05 05/19/24 07:08 05/19/24 07:15 Temperature 98.0 F 98.0 F Temperature Source Oral Oral Pulse Rate 83 83 82 Pulse Rate [Apical] Respiratory Rate 14 14 17 TAR Vitals Timing 45 Minute 1 Hour Post Infusion Blood Pressure 118/65 118/65 119/68 Blood Pressure [Right Arm] Blood Pressure Mean 82 82 Blood Pressure Mean [Right Arm] Blood Pressure Source Automatic Cuff Automatic Cuff Blood Pressure Position Sitting Sitting 02 Sat by Pulse Oximetry 100 100 100 Oxygen Delivery Method 05/19/24 07:20 05/19/24 07:20 05/19/24 07:25 Temperature 98.0 F Temperature Source Oral Pulse Rate 79 82 86 Pulse Rate [Apical] Respiratory Rate 14 14 15 TAR Vitals Timing 60 Minute Blood Pressure 115/67 115/67 117/70 Blood Pressure [Right Arm] Blood Pressure Mean 83 Blood Pressure Mean [Right Arm] Blood Pressure Source Automatic Cuff Blood Pressure Position Sitting 02 Sat by Pulse Oximetry 100 100 100 Oxygen Delivery Method 05/19/24 07:30 05/19/24 07:30 05/19/24 07:35 Temperature 98.0 F Temperature Source Oral Pulse Rate 83 86 81 Pulse Rate [Apical] Respiratory Rate 15 15 14 TAR Vitals Timing Completion Vitals Blood Pressure 123/69 123/69 118/65 Blood Pressure [Right Arm] Blood Pressure Mean 87 Blood Pressure Mean [Right Arm] Blood Pressure Source Automatic Cuff Blood Pressure Position Sitting 02 Sat by Pulse Oximetry 100 100 99 Oxygen Delivery Method 05/19/24 07:40 05/19/24 07:49 05/19/24 07:50 Temperature Temperature Source Pulse Rate 82 Pulse Rate [Apical] Respiratory Rate 14 18 14 TAR Vitals Timing Blood Pressure 111/69 126/66 Blood Pressure [Right Arm] Blood Pressure Mean Blood Pressure Mean [Right Arm] Blood Pressure Source Blood Pressure Position 02 Sat by Pulse Oximetry 100 Oxygen Delivery Method 05/19/24 07:55 05/19/24 08:00 05/19/24 08:00 Temperature 98.4 F Temperature Source Oral Pulse Rate 81 79 82 Pulse Rate [Apical] Respiratory Rate 18 15 13 TAR Vitals Timing Pre-Blood Vitals Blood Pressure 123/65 116/67 116/67 Blood Pressure [Right Arm] Blood Pressure Mean 83 Blood Pressure Mean [Right Arm] Blood Pressure Source Automatic Cuff Blood Pressure Position Sitting 02 Sat by Pulse Oximetry 100 100 99 Oxygen Delivery Method 05/19/24 08:05 05/19/24 08:07 05/19/24 08:10 Temperature 98.4 F 97.8 F Temperature Source Oral Oral Pulse Rate 85 84 87 Pulse Rate [Apical] Respiratory Rate 13 12 14 TAR Vitals Timing Start Vitals 5 Minute Blood Pressure 120/63 120/63 121/63 Blood Pressure [Right Arm] Blood Pressure Mean 82 82 Blood Pressure Mean [Right Arm] Blood Pressure Source Automatic Cuff Automatic Cuff Blood Pressure Position Sitting Sitting 02 Sat by Pulse Oximetry 100 100 100 Oxygen Delivery Method 05/19/24 08:10 05/19/24 08:15 05/19/24 08:15 Temperature 98.1 F Temperature Source Oral Pulse Rate 83 86 86 Pulse Rate [Apical] Respiratory Rate 14 15 15 TAR Vitals Timing 10 Minute Blood Pressure 121/63 131/67 131/67 Blood Pressure [Right Arm] Blood Pressure Mean 88 Blood Pressure Mean [Right Arm] Blood Pressure Source Automatic Cuff Blood Pressure Position Sitting 02 Sat by Pulse Oximetry 100 100 100 Oxygen Delivery Method 05/19/24 08:20 05/19/24 08:20 05/19/24 08:27 Temperature 98.2 F Temperature Source Oral Pulse Rate 86 87 94 H Pulse Rate [Apical] Respiratory Rate 14 13 12 TAR Vitals Timing 15 Minute Blood Pressure 123/67 123/67 160/72 H Blood Pressure [Right Arm] Blood Pressure Mean 85 Blood Pressure Mean [Right Arm] Blood Pressure Source Automatic Cuff Blood Pressure Position Sitting 02 Sat by Pulse Oximetry 100 100 100 Oxygen Delivery Method 05/19/24 08:30 05/19/24 08:35 05/19/24 08:35 Temperature 98.4 F Temperature Source Oral Pulse Rate 98 H 86 94 H Pulse Rate [Apical] Respiratory Rate 10 L 12 15 TAR Vitals Timing 30 Minute Blood Pressure 123/69 106/72 L Blood Pressure [Right Arm] Blood Pressure Mean 83 Blood Pressure Mean [Right Arm] Blood Pressure Source Blood Pressure Position 02 Sat by Pulse Oximetry 99 100 99 Oxygen Delivery Method 05/19/24 08:41 05/19/24 08:45 05/19/24 08:50 Temperature Temperature Source Pulse Rate 85 87 99 H Pulse Rate [Apical] Respiratory Rate 11 L 17 15 TAR Vitals Timing Blood Pressure 135/66 133/68 133/74 Blood Pressure [Right Arm] Blood Pressure Mean Blood Pressure Mean [Right Arm] Blood Pressure Source Blood Pressure Position 02 Sat by Pulse Oximetry 100 99 99 Oxygen Delivery Method 05/19/24 08:50 05/19/24 08:55 05/19/24 09:00 Temperature 98.1 F Temperature Source Oral Pulse Rate 85 87 86 Pulse Rate [Apical] Respiratory Rate 14 22 15 TAR Vitals Timing 45 Minute Blood Pressure 140/74 140/74 134/71 Blood Pressure [Right Arm] Blood Pressure Mean 96 Blood Pressure Mean [Right Arm] Blood Pressure Source Blood Pressure Position 02 Sat by Pulse Oximetry 99 99 98 Oxygen Delivery Method 05/19/24 09:05 05/19/24 09:05 05/19/24 09:10 Temperature 98.9 F Temperature Source Oral Pulse Rate 88 88 90 Pulse Rate [Apical] Respiratory Rate 16 13 12 TAR Vitals Timing 60 Minute Blood Pressure 136/70 157/72 H 140/71 Blood Pressure [Right Arm] Blood Pressure Mean 100 Blood Pressure Mean [Right Arm] Blood Pressure Source Blood Pressure Position 02 Sat by Pulse Oximetry 98 99 97 Oxygen Delivery Method 05/19/24 09:15 05/19/24 09:20 05/19/24 10:05 Temperature 98.6 F Temperature Source Oral Pulse Rate 94 H 87 86 Pulse Rate [Apical] Respiratory Rate 13 13 18 TAR Vitals Timing Completion Vitals Blood Pressure 140/80 136/70 144/78 H Blood Pressure [Right Arm] Blood Pressure Mean 100 Blood Pressure Mean [Right Arm] Blood Pressure Source Automatic Cuff Blood Pressure Position Sitting 02 Sat by Pulse Oximetry 100 99 99 Oxygen Delivery Method 05/19/24 10:14 05/19/24 10:32 Temperature 98.2 F 98.6 F Temperature Source Pulse Rate 67 86 Pulse Rate [Apical] Respiratory Rate 20 18 TAR Vitals Timing Blood Pressure 143/78 H 143/78 H Blood Pressure [Right Arm] Blood Pressure Mean Blood Pressure Mean [Right Arm] Blood Pressure Source Blood Pressure Position 02 Sat by Pulse Oximetry Oxygen Delivery Method Room Air Room Air Lab Data Lab Results 05/19/24 02:45: WBC 4.0 L, RBC 1.86 L*, Hgb 4.9 L*, Hct 15.9 L*, MCV 85.4, MCH 26.5 L, MCHC 31.0 L, RDW 16.7, Plt Count 259, MPV 7.7, Neut % (Auto) 69.3, Lymph % (Auto) 13.3, [place] % (Auto) 14.3 H, Eos % (Auto) 2.4, Baso % (Auto) 0.7, Neut # (Auto) 2.8, Lymph # (Auto) 0.5 L, [place] # (Auto) 0.6, Eos # (Auto) 0.1, Baso # (Auto) 0.0, PT 10.0 L, INR 0.88 L, APTT 21.3 L, Sodium 135 L, Potassium 3.2 L, C hloride 108 H, Carbon Dioxide 27, Anion Gap 3.2 L, BUN 21 H, Creatinine 0.90, Estimated Creat Clear 81, Estimated GFR 85, Est GFR ( Amer) 103, Glucose 127 H, Calcium 8.7, Total Bilirubin 0.2, AST 25, ALT 17, Alkaline Phosphatase 96, Total Protein 5.0 L, Albumin 3.0 L, Globulin 2.0, Albumin/Globulin Ratio 1.5, Blood Type O Positive, Antibody Screen Negative, Crossmatch (AHG) See Detail Orders (Tests/Meds): ED MEDICATIONS Discontinued Medications Generic Name Dose Route Start Last Admin Trade Name Freq PRN Reason Stop Dose Admin Acetaminophen 1,000 mg 05/19/24 07:17 05/19/24 07:32 Acetaminophen 500mg Tab PO 05/19/24 07:18 1,000 mg ONCE ONE Administration Sodium Chloride 250 mls @ 25 mls/hr 05/19/24 03:15 05/19/24 03:20 Sod Chlor 0.9% 250ml Bag IV 05/20/24 03:14 25 mls/hr .Q10H RADHA Administration Calcium Gluconate/Sodium Chloride 2 gm in 100 mls @ 50 mls/hr 05/19/24 03:16 05/19/24 03:21 Calcium Gluconate 2,000mg/100ml Nacl Premix IV 05/19/24 05:15 50 mls/hr ONCE ONE Administration Potassium Chloride 40 meq 05/19/24 03:17 05/19/24 03:25 Potassium Chloride 20meq Tab PO 05/19/24 03:18 40 meq ONCE ONE Administration ORDERS Category Date Time Status Transfuse RBC's [Red Blood Cells] Stat BBK 05/19/24 02:45 Completed Type and Screen Stat BBK 05/19/24 02:45 Completed CBC w/Auto Diff [Complete Blood Count Auto Diff] Stat Lab 05/19/24 02:45 Completed CMP [Comprehensive Metabolic Panel] Stat Lab 05/19/24 02:45 Completed INR [Prothrombin Time INR] Stat Lab 05/19/24 02:45 Completed PTT [Activated Partial Thrombo Time] Stat Lab 05/19/24 02:45 Completed Medical Decision Narrative: 63-year-old male with history of radiation proctitis and acute on chronic blood loss anemia presents for continued bleeding and weakness.. History was obtained via interactive discussion with patient, chart review, prior visits. On arrival, patient is afebrile, low normotensive, moving all extremities spontaneously. Full physical exam performed and significant for pale man, otherwise well- appearing. Differential includes but is not limited to upper GI bleed, lower GI bleed, coagulopathy, symptomatic anemia. Workup initiated including CBC CMP PT PTT type and screen. On re-evaluation, patient blood pressure is borderline low, MAP of 60. He remains well-appearing. Laboratory workup independently interpreted by me and significant for hemoglobin 4.9, 3 units packed red blood cell transfusion ordered.. Patient remains stable after 1 unit, at this time care was handed off to oncoming physician. DO Mike: I assumed care of the patient at 7 AM. Patient resting comfortably with no concerns or complaints on my assessment. No active bleeding noted at this time. He had significant improvement in his symptoms with blood transfusion. Vitals reassuring. At 7 AM, patient was placed in ED observation status pending completion of blood transfusion and reassessment to determine whether or not the patient would be appropriate for discharge versus admission. The patient was provided serial reevaluations and cardiac monitoring while awaiting ultimate disposition. Blood transfusion completed, which patient tolerated well with significant improvement in symptoms. He is feeling a lot better with normal vital signs on cardiac telemetry. No active bleeding noted at this time. He again declines admission and states that he is ready to go home to follow-up outpatient for repeat Jonathan hemoglobin recheck in further evaluation and management. He was given strict return precautions and was discharged after all questions were answered at 10:30 AM. Total time in ED observation was 3 hours and 30 minutes. I had a [id number] visit with the patient when providing discharge instructions. The total time involved in discharging this patient was less than 30 minutes. Strict return precautions were given as well as instructions for close outpatient follow-up Procedures <Pj Gtz MD - Last Filed: 05/19/24 07:08> Risk/Benefits of Procedure(s) Were Explained: Yes Critical Care <Pj Gtz MD - Last Filed: 05/19/24 07:08> Critical Care Time Critical Care Time: Yes Attestation: On 05/19/24, the high probability of a clinically significant, sudden or life threatening deterioration of the following system(s) required my full and direct attention, intervention and personal management. The time I documented below is in addition to time spent performing reported procedures but includes the following listed in this critical care notation. Total Time Total Critical Care Time: 45
[2024-05-19 03:11] LABS: Basophils % 0.7 % (0.1-2.0); Eosinophils # 0.1 K/mm3 (0.0-0.4); Eosinophils % 2.4 % (0.1-12.0); Lymphocytes # 0.5 K/mm3 (0.7-4.5); Lymphocytes % 13.3 % (10-50); Mean Corpuscular Hemoglobin 26.5 pg (27.0-31.2); Mean Corpuscular Volume 85.4 fl (80-94); Mean Platelet Volume 7.7 fl (7.4-10.4); Monocytes # 0.6 K/mm3 (0.1-1.0); Monocytes % 14.3 % (1.7-9.3); Neutrophils # 2.8 K/mm3 (1.8-7.8); Neutrophils % 69.3 % (37.0-80.0); Platelet Count 259 K/mm3 (142-424); Red Blood Count 1.86 M/mm3 (4.60-6.20); Red Cell Distribution Width 16.7 % (11.5-17.5)
[2024-05-19 03:12] LABS: Chloride 108 mmol/L (98-107); Potassium 3.2 mmoL/L (3.5-5.1); Sodium 135 mmol/L (136-145)
[2024-05-19 03:13] LABS: Hemoglobin 4.9 g/dL (14.1-18.0)
[2024-05-19 03:14] LABS: Hematocrit 15.9 % (42.0-52.0)
[2024-05-19 03:15] LABS: Alanine Aminotransferase 17 U/L (12-78); Alkaline Phosphatase 96 U/L (38-126); Anion Gap 3.2 mEq/L (5-15); Aspartate Amino Transferase 25 U/L (17-59); Bilirubin,Total 0.2 mg/dl (0.2-1.3); Blood Urea Nitrogen 21 mg/dl (9-20); Calcium 8.7 mg/dl (8.4-10.2); Carbon Dioxide 27 mmol/L (22.0-30.0); Creatinine Clearance Estimated 81 mL/min (50-200); Estimated Glomerular Filt Rate 85 ml/min (>60); GFR (African American) 103 ML/MIN (>60); Glucose 127 mg/dl (74-100)
[2024-05-19 03:16] LABS: Albumin/Globulin Ratio 1.5 (1.1-1.8)
[2024-05-19] MEDS: 0.9 % SODIUM CHLORIDE 250 ML 25 ML IV (03:20)
[2024-05-19] MEDS: CALCIUM GLUC IN NACL, ISO-OSM 2 GM/100 ML BAG IV (03:21)
[2024-05-19 03:22] LABS: INR 0.88 (0.9-1.1)
[2024-05-19] MEDS: POTASSIUM CHLORIDE 20MEQ TAB 40 MEQ PO (03:25)
[2024-05-19 03:31] LABS: Activated Partial Thrombo Time 21.3 seconds (22.8-30.6)
[2024-05-19] MEDS: ACETAMINOPHEN 500MG TAB 1000 MG PO (07:32)
--- NOTE | 2024-05-19 08:25 | PC.NURSE ---
Food tray delivered
--- NOTE | 2024-05-19 10:09 | PC.NURSE ---
DR PRESLEY NOTIFIED OF BLOOD COMPLETION, NO NEED FOR PT TO STAY FOR 1 HOUR POST H&H OR VITALS
== END 2024-05-19 10:33 | disposition home or self-care (01) ==
PROVIDERS: Emergency Medicine; Emergency Provider Emergency Medicine
DX: K62.7 Radiation proctitis (principal); R06.02 Shortness of breath; R53.1 Weakness; K62.5 Hemorrhage of anus and rectum; D50.0 Iron deficiency anemia secondary to blood loss (chronic)
CPT/HCPCS: 80053; 85025; 85610; 85730; 86850; 99291; P9016

== ENCOUNTER 2024-05-25 00:39 | Emergency (ER) | payer OTHER, SELFPAY ==
[2024-05-25 00:40] VITALS: BP 126/66; PULSE 67; RESP 14; TEMP 36.6; O2SAT 96; BMI 25.1
--- NOTE | 2024-05-25 00:42 | HMH.EDGENADL ---
Discharge Plan Disposition Patient Disposition: Home, Self-Care Prescriptions Prescriptions: No Action atorvastatin 40 mg Tablet 40 mg PO DAILY metoprolol succinate 100 mg Tablet Extended Release 24 Hr 100 mg PO DAILY ropinirole 0.25 mg Tablet 0.25 mg PO DAILY amlodipine 10 mg Tablet 10 mg PO DAILY albuterol 90 mcg/actuation Aerosol 90 mcg INHALATION DAILY Referrals Follow up/Referrals: Provider,Referral, [Primary Care Provider] - See instructions Activity Restrictions/Add. Instructions Additional Instructions/Restrictions: Please follow-up with your primary care provider. Please return to the emergency department if you develop any new or worsening symptoms or become concerned for your health. Clinical Impressions Clinical Impression: Radiation proctitis, Chronic blood loss anemia Print Language Print Language: Brazilian Discharge ED Provider: Pj Gtz Adult HPI General Chief complaint: Shortness of Breath/Dyspnea Stated complaint: GI bleed Time Seen by Provider: 05/25/24 00:42 History of Present Illness HPI narrative: 63-year-old male with history of radiation proctitis and chronic blood loss anemia for which I have seen him several times over the last month. See prior notes for details of history. He reports no changes. He comes in tonight because he is feeling more short of breath and his blood loss benefit higher than normal the last few days. Denies chest pain abdominal pain. Reports that he has had a viral syndrome for the last few days as well. Related Data Home Medications ?Medication ?Instructions ?Recorded ?Confirmed albuterol 90 mcg/actuation aerosol 90 mcg inhalation DAILY . 02/27/23 02/27/23 inhaler amlodipine 10 mg tablet 10 mg PO DAILY . 02/27/23 02/27/23 atorvastatin 40 mg tablet 40 mg PO DAILY . 02/27/23 02/27/23 metoprolol succinate 100 mg 100 mg PO DAILY High Blood Pressure 02/27/23 02/27/23 tablet,extended release 24 hr ropinirole 0.25 mg tablet 0.25 mg PO DAILY . 02/27/23 02/27/23 Allergies Allergy/AdvReac Type Severity Reaction Status Date / Time No Known Allergies Allergy Verified 02/27/23 09:55 [facility] Disclaimer: The information contained in this section may have been updated after the patient was seen, as this information can be updated by other users. Social History (Updated 02/27/23 @ 14:41 by Steven Stuart MD) Smoking Status: Never smoker alcohol intake: never current occupational status: previously employed Travel in the last 8 weeks: None Have you lived/traveled outside [place] in past 30 days?: No Contact w/someone who lives/traveled outside [place] past 30 days?: No Exposure to someone with infectious disease in past 14 days?: No Do you have a fever (greater than 100.4 F or 38 C)?: No Have you tested positive for COVID-19: No Exposed to someone with COVID-19 in past 14 days?: No Do you have a sore throat?: No Do you have a cough?: No Do you have any weakness?: No Do you have any diarrhea?: No Are you experiencing any unusual bleeding?: No Do you have any muscle aches/pain?: No Do you have any abdominal pain?: No Are you experiencing loss of taste or smell?: No ROS Obtained: Yes All systems reviewed & no additional complaints except as documented Physical Exam General General appearance: alert and in no apparent distress Head Head exam: atraumatic and normocephalic Eye Eye exam: Present normal appearance, PERRL and EOMI ENT ENT exam: Present normal oropharynx and normal external ear exam Neck Neck exam: Present normal inspection and full ROM Chest Chest inspection: Present normal inspection and symmetric chest wall rise; Absent tenderness Respiratory Respiratory exam: Present normal lung sounds bilaterally; Absent respiratory distress Cardiovascular Cardiovascular exam: Present regular rate and normal rhythm Abdominal Exam Abdominal exam: Present soft; Absent distention, tenderness or guarding Extremities Exam Extremities exam: Present normal inspection; Absent edema or joint swelling Back Exam Back exam: Present normal inspection; Absent tenderness Neurological Exam Neurological exam: Present alert and oriented X3; Absent motor sensory deficit Psychiatric Psychiatric exam: Present normal affect and normal mood Skin Skin exam: Present warm, dry and normal color Lymphatic Lymphatic Findings: no adenopathy Medical Decision Making Medical Records Medical records reviewed: Yes I reviewed the patient's medical records. Screening: Per USPSTF and CDC recommendations, given the prevalence of disease in our region, it is our hospital?s policy to screen for HIV and viral Hepatitis for all patients aged 18 and over and those with ongoing risk factors. Jeff Inquiry Pt receiving controlled substance: No Jeff was queried for this patient: No Vital Signs: 05/25/24 00:40 05/25/24 01:05 05/25/24 01:15 Temperature 97.9 F Temperature Source Oral Pulse Rate 66 72 Pulse Rate [Right Radial] 67 Respiratory Rate 14 Blood Pressure [Right Arm] 126/66 Blood Pressure Mean [Right Arm] 86 Blood Pressure Source [Right Arm] Automatic Cuff Blood Pressure Position [Right Arm] Supine 02 Sat by Pulse Oximetry 96 100 100 Oxygen Delivery Method Room Air Lab Data Lab results reviewed: Yes I reviewed the patient's lab results. Lab Results 05/25/24 00:50: WBC 4.9, RBC 3.23 L, Hgb 7.7 L, Hct 26.4 L, MCV 81.7, MCH 23.8 L, MCHC 29.2 L, RDW 17.0, Plt Count 190, MPV 8.8, Neut % (Auto) 72.4, Lymph % (Auto) 8.5 L, [place] % (Auto) 15.7 H, Eos % (Auto) 2.4, Baso % (Auto) 0.8, Neut # (Auto) 3.6, Lymph # (Auto) 0.4 L, [place] # (Auto) 0.8, Eos # (Auto) 0.1, Baso # (Auto) 0.0, Sodium 139, Potassium 3.3 L, Chloride 109 H, Carbon Dioxide 28, Anion Gap 5.3, BUN 15, Creatinine 0.80, Estimated Creat Clear 81, Estimated GFR 97, Est GFR ( Amer) 118, Glucose 114 H, Calcium 8.9, Total Bilirubin 0.5, AST 37, ALT 25, Alkaline Phosphatase 111, Total Protein 5.6 L, Albumin 3.5, Globulin 2.1, Albumin/Globulin Ratio 1.7, Blood Type O Positive 05/25/24 00:50 05/25/24 00:50 Orders (Tests/Meds): ORDERS Category Date Time Status Type and Screen Stat BBK 05/25/24 00:50 Results CBC w/Auto Diff [Complete Blood Count Auto Diff] Stat Lab 05/25/24 00:50 Completed CMP [Comprehensive Metabolic Panel] Stat Lab 05/25/24 00:50 Completed INR [Prothrombin Time INR] Stat Lab 05/25/24 00:50 Received PTT [Activated Partial Thrombo Time] Stat Lab 05/25/24 00:50 Received Medical Decision Narrative: 63-year-old male with history of radiation proctitis and chronic blood loss anemia [facility] presents for increase in volume of lower GI bleeding and increased shortness of breath.. History was obtained via interactive discussion with patient family chart review. On arrival, patient is [afebrile, hemodynamically stable, satting appropriately, alert, oriented x4, GCS 15], moving all extremities spontaneously. Full physical exam performed and significant for good color for patient compared to prior visits, normal vital signs, clear lungs bilaterally, no lower extremity edema Differential includes but is not limited to acute on chronic blood loss anemia, URI coagulopathy. Workup initiated including CBC CMP type and screen INR. On re-evaluation, patient [remains afebrile, HD stable.] Laboratory workup independently interpreted by me and significant for hemoglobin 7.7. At last visit patient hemoglobin was 4.9 and he was transfused 3 units. Given this, his expected value should be around 8. As such, his hemoglobin of 7.7 is close to baseline for him at this point. Transfusion was considered, but deemed unnecessary due to hemoglobin greater than 7, stable vital signs, good color. Given patient history, exam and workup, patient's presentation most likely represents chronic blood loss anemia secondary to radiation proctitis. Patient was discharged in stable condition with return precautions.. Procedures Risk/Benefits of Procedure(s) Were Explained: Yes Critical Care Critical Care Time Critical Care Time: No
[2024-05-25 01:02] LABS: Hematocrit 26.4 % (42.0-52.0); Hemoglobin 7.7 g/dL (14.1-18.0); Red Blood Count 3.23 M/mm3 (4.60-6.20); White Blood Count 4.9 K/mm3 (4.8-10.8)
[2024-05-25 01:03] LABS: Basophils % 0.8 % (0.1-2.0); Eosinophils # 0.1 K/mm3 (0.0-0.4); Eosinophils % 2.4 % (0.1-12.0); Lymphocytes # 0.4 K/mm3 (0.7-4.5); Lymphocytes % 8.5 % (10-50); Mean Corpuscular HGB Conc 29.2 g/dL (31.8-35.4); Mean Corpuscular Hemoglobin 23.8 pg (27.0-31.2); Mean Corpuscular Volume 81.7 fl (80-94); Mean Platelet Volume 8.8 fl (7.4-10.4); Monocytes # 0.8 K/mm3 (0.1-1.0); Monocytes % 15.7 % (1.7-9.3); Neutrophils # 3.6 K/mm3 (1.8-7.8); Neutrophils % 72.4 % (37.0-80.0); Platelet Count 190 K/mm3 (142-424)
[2024-05-25 01:05] VITALS: PULSE 66; O2SAT 100
[2024-05-25 01:12] LABS: Alanine Aminotransferase 25 U/L (12-78); Albumin Level 3.5 g/dl (3.5-5.0); Albumin/Globulin Ratio 1.7 (1.1-1.8); Alkaline Phosphatase 111 U/L (38-126); Anion Gap 5.3 mEq/L (5-15); Aspartate Amino Transferase 37 U/L (17-59); Bilirubin,Total 0.5 mg/dl (0.2-1.3); Blood Urea Nitrogen 15 mg/dl (9-20); Calcium 8.9 mg/dl (8.4-10.2); Carbon Dioxide 28 mmol/L (22.0-30.0); Chloride 109 mmol/L (98-107); Creatinine Clearance Estimated 81 mL/min (50-200); Estimated Glomerular Filt Rate 97 ml/min (>60); GFR (African American) 118 ML/MIN (>60); Globulin 2.1 g/dL (1.3-3.2); Glucose 114 mg/dl (74-100); Potassium 3.3 mmoL/L (3.5-5.1); Sodium 139 mmol/L (136-145); Total Protein,Serum 5.6 g/dl (6.3-8.2)
[2024-05-25 01:15] VITALS: PULSE 72; O2SAT 100
[2024-05-25 01:39] VITALS: BP 135/68; PULSE 68; RESP 16; TEMP 36.6; O2SAT 98
--- NOTE | 2024-05-25 01:41 | PC.NURSE ---
IV removed. Catheter tip intact. Bleeding controlled.
[2024-05-25 01:42] LABS: INR 0.91 (0.9-1.1); Prothrombin Time 10.3 seconds (10.1-12.5)
[2024-05-25 02:02] LABS: Activated Partial Thrombo Time 22.1 seconds (22.8-30.6)
== END 2024-05-25 01:45 | disposition home or self-care (01) ==
PROVIDERS: Emergency Provider Emergency Medicine
DX: D50.0 Iron deficiency anemia secondary to blood loss (chronic) (principal); K62.7 Radiation proctitis; R06.00 Dyspnea, unspecified; R06.02 Shortness of breath
CPT/HCPCS: 80053; 85025; 85610; 85730; 86850; 99283

== ENCOUNTER 2024-05-31 15:08 | Emergency (ER) | payer OTHER, SELFPAY ==
[2024-05-31] VITALS (30 sets, daily range): BP systolic 146–171; BP diastolic 71–88; PULSE 78–96; RESP 12–19; TEMP 36.4–36.9; O2SAT 99–100; BMI 25.1
--- NOTE | 2024-05-31 15:18 | PC.NURSE ---
DR GARCIA AT BEDSIDE
[2024-05-31 15:44] LABS: Basophils % 0.4 % (0.1-2.0); Eosinophils # 0.1 K/mm3 (0.0-0.4); Eosinophils % 1.6 % (0.1-12.0); Lymphocytes # 0.4 K/mm3 (0.7-4.5); Lymphocytes % 7.9 % (10-50); Mean Corpuscular HGB Conc 28.9 g/dL (31.8-35.4); Mean Corpuscular Hemoglobin 22.8 pg (27.0-31.2); Mean Corpuscular Volume 78.8 fl (80-94); Monocytes # 0.5 K/mm3 (0.1-1.0); Monocytes % 9.9 % (1.7-9.3); Neutrophils # 3.9 K/mm3 (1.8-7.8); Neutrophils % 79.8 % (37.0-80.0); Platelet Count 170 K/mm3 (142-424); Red Blood Count 2.59 M/mm3 (4.60-6.20); White Blood Count 4.9 K/mm3 (4.8-10.8)
[2024-05-31 15:45] LABS: Hematocrit 20.4 % (42.0-52.0)
--- NOTE | 2024-05-31 15:45 | PC.NURSE ---
CRITICAL H&H 5.02/20.4 PT NAME AND R/V. DR GARCIA NOTIFIED
[2024-05-31 15:46] LABS: Albumin Level 3.6 g/dl (3.5-5.0); Chloride 106 mmol/L (98-107); Hemoglobin 5.9 g/dL (14.1-18.0); Potassium 3.5 mmoL/L (3.5-5.1); Sodium 134 mmol/L (136-145)
--- NOTE | 2024-05-31 15:48 | ED_ITS ---
Discharge Plan Disposition Patient Disposition: Home, Self-Care Chief Complaint: GI Bleed Prescriptions Prescriptions: New mesalamine 1,000 mg suppository 1 g [place] HS 28 Days Qty: 30 1RF No Action atorvastatin 40 mg Tablet 40 mg PO DAILY metoprolol succinate 100 mg Tablet Extended Release 24 Hr 100 mg PO DAILY ropinirole 0.25 mg Tablet 0.25 mg PO DAILY amlodipine 10 mg Tablet 10 mg PO DAILY albuterol 90 mcg/actuation Aerosol 90 mcg INHALATION DAILY Referrals Follow up/Referrals: Jaiden Shelby [Primary Care Provider] - See instructions Activity Restrictions/Add. Instructions Additional Instructions/Restrictions: Mesalamine 1000 mg rectal suppository each night before going to bed. Call [facility] and inquire about argon plasma coagulation (APC). If unable to perform this, call Dr. Conde's office on Saturday and tell them that you were seen in the emergency department, discussed with the emergency provider, Dr. Stuart, and were told you need APC. They will schedule appointment quickly in order to try to perform APC to prevent further bleeding and need for transfusion. Prior to that appointment, bowel regimen as provided. Call your family doctor to establish care for this visit to the emergency department and schedule follow-up within 48 hours to ensure improvement. If you have any worsening of your condition or any other concerning signs or symptoms, return to the emergency department or your primary care doctor for further evaluation. Also talk to your family doctor about receiving iron infusions. Blood transfusions only last about a month, iron infusions will allow you to create your own blood that last for around 3 months. Also talk to case management at the [facility]. Make sure that you will be on track to be able to receiving procedure in [place], and inquire about procedure listed above to see if you are able to receive it at [facility]. Clinical Impressions Clinical Impression: Rectal bleed, Symptomatic anemia Instructions Patient Instructions: DI for Gastrointestinal Bleeding Print Language Print Language: Indonesian Discharge ED Provider: Steven Stuart General Adult HPI General Chief complaint: GI Bleed Stated complaint: internal bleeding Time Seen by Provider: 05/31/24 15:16 Mode of Arrival: Ambulatory Source of Information: Patient Limitations: No Limitations Description of Symptoms (Recalled from ER Triage Doc. by RN): PT REPORTS PAINLESS BRIGHT RED BLOODY STOOLS ALL WEEK. DENIES PAIN. RECENT VISIT HERE FOR SAME SYMPTOMS, RECEIVED BLOOD IN ED AND WAS DISCHARGED TO [facility] WITH [facility]. DENIES CHEST PAIN, REPORTS FEELING LIGHTHEADED History of Present Illness HPI narrative: Please note that above description of symptoms, in this electronic medical record under categorization of recalled from ER triage doctor by RN are reflective of an initial nursing assessment, however, is not reflective of my full history and physical exam that was personally taken and clarified. Consequentially, this preceding description of symptoms, which may include the patient's categorized chief complaint in the EMR, do not reflect my personal clinical impression, and the ultimate description of history of present illness and patient stated complaints should be deferred to this section of the note. Unless stated otherwise or congruent with this section of the note, additional signs, symptoms, or incongruence should be interpreted as inaccurate with my clinical impression. Related Data Home Medications ?Medication ?Instructions ?Recorded ?Confirmed albuterol 90 mcg/actuation aerosol 90 mcg inhalation DAILY . 02/27/23 02/27/23 inhaler amlodipine 10 mg tablet 10 mg PO DAILY . 02/27/23 02/27/23 atorvastatin 40 mg tablet 40 mg PO DAILY . 02/27/23 02/27/23 metoprolol succinate 100 mg 100 mg PO DAILY High Blood Pressure 02/27/23 02/27/23 tablet,extended release 24 hr ropinirole 0.25 mg tablet 0.25 mg PO DAILY . 02/27/23 02/27/23 Previous Rx's ?Medication ?Instructions ?Recorded mesalamine 1,000 mg rectal 1 g [place] HS 4 weeks #30 ea 05/31/24 suppository Allergies Allergy/AdvReac Type Severity Reaction Status Date / Time No Known Allergies Allergy Verified 02/27/23 09:55 [facility] Disclaimer: The information contained in this section may have been updated after the patient was seen, as this information can be updated by other users. Social History (Updated 02/27/23 @ 14:41 by Steven Stuart MD) Smoking Status: Never smoker alcohol intake: never current occupational status: previously employed Travel in the last 8 weeks: None Have you lived/traveled outside [place] in past 30 days?: No Contact w/someone who lives/traveled outside US past 30 days?: No Exposure to someone with infectious disease in past 14 days?: No Do you have a fever (greater than 100.4 F or 38 C)?: No Have you tested positive for COVID-19: No Exposed to someone with COVID-19 in past 14 days?: No Do you have a sore throat?: No Do you have a cough?: No Do you have any weakness?: Yes Do you have any diarrhea?: No Are you experiencing any unusual bleeding?: No Do you have any muscle aches/pain?: No Do you have any abdominal pain?: No Are you experiencing loss of taste or smell?: No ROS Obtained: Yes All systems reviewed & no additional complaints except as documented Physical Exam General General appearance: alert Head Head exam: atraumatic and normocephalic Eye Eye exam: Present normal appearance, PERRL and EOMI Neck Neck exam: Present normal inspection, full ROM and trachea midline Respiratory Respiratory exam: Absent respiratory distress, wheezes, stridor, accessory muscle use or prolonged expiratory phase Cardiovascular Cardiovascular exam: Present other (Pulses equal symmetric in upper and lower extremities) Abdominal Exam Abdominal exam: Present soft; Absent distention, tenderness or pulsatile mass Extremities Exam Extremities exam: Absent edema Neurological Exam Neurological exam: Present alert, oriented X3 and CN II-XII intact; Absent motor sensory deficit Skin Skin exam: Present warm and dry; Absent diaphoresis or erythema Medical Decision Making Medical Records Medical records reviewed: Yes I reviewed the patient's medical records. Screening: Per USPSTF and CDC recommendations, given the prevalence of disease in our region, it is our hospital?s policy to screen for HIV and viral Hepatitis for all patients aged 18 and over and those with ongoing risk factors. Jeff Inquiry Pt receiving controlled substance: No Jeff was queried for this patient: No Vital Signs: 05/31/24 15:11 05/31/24 15:30 05/31/24 16:00 Temperature 97.6 F Temperature Source Oral Pulse Rate 81 88 Pulse Rate [Apical] 82 Respiratory Rate 18 14 13 TAR Vitals Timing Blood Pressure 151/73 H 146/71 H Blood Pressure [Right Arm] 163/87 H Blood Pressure Mean Blood Pressure Mean [Right Arm] 112 Blood Pressure Source Blood Pressure Source [Right Arm] Automatic Cuff Blood Pressure Position [Right Arm] Sitting 02 Sat by Pulse Oximetry 99 100 100 Oxygen Delivery Method Room Air Room Air 05/31/24 16:30 05/31/24 16:55 05/31/24 17:00 Temperature 98.1 F Temperature Source Oral Pulse Rate 85 83 81 Pulse Rate [Apical] Respiratory Rate 12 14 19 TAR Vitals Timing Pre-Blood Vitals Blood Pressure 146/76 H 162/84 H 162/84 H Blood Pressure [Right Arm] Blood Pressure Mean 110 Blood Pressure Mean [Right Arm] Blood Pressure Source Blood Pressure Source [Right Arm] Blood Pressure Position [Right Arm] 02 Sat by Pulse Oximetry 100 100 100 Oxygen Delivery Method Room Air Room Air 05/31/24 17:05 05/31/24 17:05 05/31/24 17:10 Temperature 98.1 F 98.4 F Temperature Source Oral Oral Pulse Rate 84 90 86 Pulse Rate [Apical] Respiratory Rate 15 15 16 TAR Vitals Timing Start Vitals 5 Minute Blood Pressure 147/87 H 147/87 H 158/84 H Blood Pressure [Right Arm] Blood Pressure Mean 107 108 Blood Pressure Mean [Right Arm] Blood Pressure Source Blood Pressure Source [Right Arm] Blood Pressure Position [Right Arm] 02 Sat by Pulse Oximetry 99 100 100 Oxygen Delivery Method Room Air 05/31/24 17:10 05/31/24 17:15 05/31/24 17:15 Temperature 98.3 F Temperature Source Oral Pulse Rate 84 85 82 Pulse Rate [Apical] Respiratory Rate 12 14 12 TAR Vitals Timing 10 Minute Blood Pressure 158/84 H 155/78 H 155/78 H Blood Pressure [Right Arm] Blood Pressure Mean 103 Blood Pressure Mean [Right Arm] Blood Pressure Source Blood Pressure Source [Right Arm] Blood Pressure Position [Right Arm] 02 Sat by Pulse Oximetry 100 100 99 Oxygen Delivery Method Room Air Room Air 05/31/24 17:20 05/31/24 17:21 05/31/24 17:30 Temperature 98.0 F Temperature Source Oral Pulse Rate 84 96 H 88 Pulse Rate [Apical] Respiratory Rate 16 12 12 TAR Vitals Timing 15 Minute Blood Pressure 160/88 H 160/88 H 166/78 H Blood Pressure [Right Arm] Blood Pressure Mean 112 Blood Pressure Mean [Right Arm] Blood Pressure Source Blood Pressure Source [Right Arm] Blood Pressure Position [Right Arm] 02 Sat by Pulse Oximetry 100 100 100 Oxygen Delivery Method 05/31/24 17:35 05/31/24 17:40 05/31/24 17:45 Temperature 98.1 F Temperature Source Oral Pulse Rate 84 83 86 Pulse Rate [Apical] Respiratory Rate 15 14 17 TAR Vitals Timing 30 Minute Blood Pressure 158/84 H 158/77 H Blood Pressure [Right Arm] Blood Pressure Mean 108 Blood Pressure Mean [Right Arm] Blood Pressure Source Blood Pressure Source [Right Arm] Blood Pressure Position [Right Arm] 02 Sat by Pulse Oximetry 100 100 100 Oxygen Delivery Method 05/31/24 17:50 05/31/24 17:50 05/31/24 17:55 Temperature 98.0 F Temperature Source Oral Pulse Rate 84 86 80 Pulse Rate [Apical] Respiratory Rate 14 16 16 TAR Vitals Timing 45 Minute Blood Pressure 159/84 H 162/87 H 161/81 H Blood Pressure [Right Arm] Blood Pressure Mean 112 Blood Pressure Mean [Right Arm] Blood Pressure Source Blood Pressure Source [Right Arm] Blood Pressure Position [Right Arm] 02 Sat by Pulse Oximetry 99 100 99 Oxygen Delivery Method Room Air Room Air 05/31/24 18:00 05/31/24 18:05 05/31/24 18:30 Temperature 98.2 F Temperature Source Oral Pulse Rate 86 87 80 Pulse Rate [Apical] Respiratory Rate 14 16 TAR Vitals Timing 60 Minute Blood Pressure 158/80 H 158/80 H 171/87 H Blood Pressure [Right Arm] Blood Pressure Mean 106 Blood Pressure Mean [Right Arm] Blood Pressure Source Blood Pressure Source [Right Arm] Blood Pressure Position [Right Arm] 02 Sat by Pulse Oximetry 99 100 100 Oxygen Delivery Method Room Air 05/31/24 18:40 05/31/24 18:53 05/31/24 19:05 Temperature 98.2 F 98.0 F 98.1 F Temperature Source Oral Oral Oral Pulse Rate 84 85 90 Pulse Rate [Apical] Respiratory Rate 18 16 15 TAR Vitals Timing Completion Vitals Pre-Blood Vitals Start Vitals Blood Pressure 171/87 H 170/87 H 164/85 H Blood Pressure [Right Arm] Blood Pressure Mean 115 114 111 Blood Pressure Mean [Right Arm] Blood Pressure Source Automatic Cuff Automatic Cuff Blood Pressure Source [Right Arm] Blood Pressure Position [Right Arm] 02 Sat by Pulse Oximetry 100 100 99 Oxygen Delivery Method 05/31/24 19:10 05/31/24 19:15 05/31/24 19:20 Temperature 98.1 F 98.0 F 98.0 F Temperature Source Oral Oral Oral Pulse Rate 87 95 H 91 H Pulse Rate [Apical] Respiratory Rate 16 18 17 TAR Vitals Timing 5 Minute 10 Minute 15 Minute Blood Pressure 153/87 H 158/86 H 164/87 H Blood Pressure [Right Arm] Blood Pressure Mean 109 110 112 Blood Pressure Mean [Right Arm] Blood Pressure Source Automatic Cuff Automatic Cuff Automatic Cuff Blood Pressure Source [Right Arm] Blood Pressure Position [Right Arm] 02 Sat by Pulse Oximetry 99 99 100 Oxygen Delivery Method Lab Data Lab Results 05/31/24 15:22: WBC 4.9, RBC 2.59 L, Hgb 5.9 L*, Hct 20.4 L*, MCV 78.8 L, MCH 22.8 L, MCHC 28.9 L, RDW 17.0, Plt Count 170, MPV 9.0, Neut % (Auto) 79.8, Lymph % (Auto) 7.9 L, [place] % (Auto) 9.9 H, Eos % (Auto) 1.6, Baso % (Auto) 0.4, Neut # (Auto) 3.9, Lymph # (Auto) 0.4 L, [place] # (Auto) 0.5, Eos # (Auto) 0.1, Baso # (Auto) 0.0, PT 10.5, INR 0.93, APTT 22.2 L, Sodium 134 L, Potassium 3.5, Chloride 106, Carbon Dioxide 23, Anion Gap 8.5, BUN 11, Creatinine 0.70, Estimated Creat Clear 81, Estimated GFR 114, Est GFR ( Amer) 137, Glucose 198 H, Calcium 9.1, Total Bilirubin 0.6, AST 39, ALT 22, Alkaline Phosphatase 98, Total Protein 5.7 L, Albumin 3.6, Globulin 2.1, Albumin/Globulin Ratio 1.7 05/31/24 15:29: ESR 23 H, C-Reactive Protein 2.7 05/31/24 15:35: Blood Type O Positive, Antibody Screen Negative, Crossmatch (AHG) See Detail 05/31/24 16:53: Stl Aeromonas (PCR) Not detected, Stl C. cayetanensis PCR Not detected, Stool Rotavirus (PCR) Not detected, Stl Adenov F 40/41 PCR Not detected, Stool Astrovirus (PCR) Not detected, Stool Campylobacter PCR Not detected, Stl C.difficile Tox PCR Not detected, Stool Cryptosporidium PCR Not detected, Stl E.coli Shiga Tox PCR Not detected, Stool E coli O157 PCR Not detected, Stl Enterotoxigenic E PCR Not detected, Stool EPEC (PCR) Not detected, Stool EAEC (PCR) Not detected, Stl E. histolytica PCR Not detected, Stool Giardia Lamblia PCR Not detected, Stool Salmonella PCR Not detected, Stool Sapovirus (PCR) Not detected, Stl P. shigelloides PCR Not detected, Stl Shigella/EIEC PCR Not detected, St Y.enterocolitica PCR Not detected, Stool Vibrio (PCR) Not detected, Stl Vibrio cholerae PCR Not detected, Stl Norovirus GI/GII PCR Not detected 05/31/24 15:22 05/31/24 15:22 Orders (Tests/Meds): ED MEDICATIONS Generic Name Dose Route Start Last Admin Trade Name Freq PRN Reason Stop Dose Admin Sodium Chloride 250 mls @ 25 mls/hr 05/31/24 16:00 05/31/24 17:27 Sod Chlor 0.9% 250ml Bag IV 06/01/24 15:59 25 mls/hr .Q10H RADHA Administration ORDERS Category Date Time Status Transfuse RBC's [Red Blood Cells] Stat BBK 05/31/24 15:35 Completed Type and Screen Stat BBK 05/31/24 15:35 Completed CRP [C-Reactive Protein] Stat Lab 05/31/24 15:29 Completed Complete Blood Count Auto Diff Stat Lab 05/31/24 15:22 Completed Comprehensive Metabolic Panel Stat Lab 05/31/24 15:22 Completed Diarrhea 6-11 Panel, Cdiff PCR Stat Lab 05/31/24 16:53 Completed ESR [Erythrocyte Sedimentation Rate] Stat Lab 05/31/24 15:29 Completed PT INR [Prothrombin Time INR] Stat Lab 05/31/24 15:22 Completed PTT [Activated Partial Thrombo Time] Stat Lab 05/31/24 15:22 Completed Medical Decision Narrative: 63-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 Patient states that he started having rectal bleeding 5 days prior to this. Stopped about 2 days ago, continued today. States that he is having lightheadedness with exertion, no chest pain, syncope, nausea, vomiting, or any other concerns. Last bowel movement was just before arrival. Patient received workup and colonoscopy at [facility], stated there is nothing they can do for me. It is due to radiation proctitis and just needs to keep transfusing blood and started him on sucralfate. History was obtained via conversation with patient. On arrival, patient hemodynamically stable, alert, oriented x4, appropriate, GCS 15, moving all extremities spontaneously, pupils equal and reactive to light. Full physical exam performed and significant for pale, no acute distress. Speaking in full sentences. Nontachycardic and normotensive. Patient's abdomen is soft, nontender. Differential includes proctitis, colitis, IBS, IBD, diverticular, acute blood loss anemia, symptomatic anemia, stage I hemorrhagic shock, among others. Patient placed on continuous cardiac monitoring and continuous pulse ox with initial blood pressure 163/80, heart rate ED to, saturation 99% on room air. Workup independently interpreted and significant for hemoglobin 5.9/Bernard crit 20.4. PT/INR and PTT nonactionable. Patient's chemistry nonactionable as well. 2 units packed red blood cells ordered. I contacted gastroenterology who was generous enough to discuss case although not on service. Recommended mesalamine suppositories 1000 mg per rectum each night and following up closely outpatient with them for colonoscopy and APC. CT angiogram of the abdomen and pelvis was considered, but not deemed necessary. Patient no acute distress, not actively bleeding, very well-appearing. Patient has had numerous CT scans confirming same diagnosis and patient states symptoms are no different. I feel unnecessary at this time. On reevaluation, patient still without any acute complaints. 2 units transfused. Full stool panel was negative for any acute invasive or infectious etiology. Inflammatory markers negative. Given patient presentation, workup, history, this most likely represents acute blood loss anemia and symptomatic anemia in the setting of radiation proctitis. Mesalamine sent to the pharmacy. Because patient at baseline without signs or symptoms of clinical decompensation, deemed appropriate for discharge. Results were relayed to patient who voiced understanding and were agreeable to outpatient management and follow up. I discussed my clinical impression with patient and answered all questions. At this time, the evidence for any other entities in the differential is insufficient to warrant any further testing or ED observation. This was explained as well. Advisory was given that persistent or worsening symptoms require further evaluation. I confirmed the understanding of this discussion. Vegetable Preparer disclaimer Much of this encounter note is an electronic bartender manager spoken language to printed text. Electronic bartender manager of the spoken language may permit errors. Although I have reviewed the note, some errors may still exist. Critical Care Critical Care Time Critical Care Time: Yes (hematologic) Attestation: On 05/31/24, the high probability of a clinically significant, sudden or life threatening deterioration of the following system(s) required my full and direct attention, intervention and personal management. The time I documented below is in addition to time spent performing reported procedures but includes the following listed in this critical care notation. Total Time Total Critical Care Time: 45
[2024-05-31 15:49] LABS: Alanine Aminotransferase 22 U/L (12-78); Albumin/Globulin Ratio 1.7 (1.1-1.8); Alkaline Phosphatase 98 U/L (38-126); Anion Gap 8.5 mEq/L (5-15); Aspartate Amino Transferase 39 U/L (17-59); Bilirubin,Total 0.6 mg/dl (0.2-1.3); Blood Urea Nitrogen 11 mg/dl (9-20); Carbon Dioxide 23 mmol/L (22.0-30.0); Creatinine Clearance Estimated 81 mL/min (50-200); Estimated Glomerular Filt Rate 114 ml/min (>60); GFR (African American) 137 ML/MIN (>60); Globulin 2.1 g/dL (1.3-3.2); Total Protein,Serum 5.7 g/dl (6.3-8.2)
[2024-05-31 15:50] LABS: Calcium 9.1 mg/dl (8.4-10.2); Glucose 198 mg/dl (74-100)
[2024-05-31 16:06] LABS: Activated Partial Thrombo Time 22.2 seconds (22.8-30.6); INR 0.93 (0.9-1.1); Prothrombin Time 10.5 seconds (10.1-12.5)
[2024-05-31 16:23] LABS: C-Reactive Protein 2.7 mg/L (0-4)
[2024-05-31 16:29] LABS: Erythrocyte Sedimentation Rate 23 mm/hr (0-20)
[2024-05-31 17:00] LABS: Adenovirus F 40/41, stool Not Detected (NotDetected); Astrovirus Not Detected (NotDetected); Campylobacter Not Detected (NotDetected); Clostridium Difficile A/B, PCR Not Detected (NotDetected); Cryptosporidium Not Detected (NotDetected); Cyclospora Cayetanesis Not Detected (NotDetected); Entamoeba histolytica Not Detected (NotDetected); Enteroaggregative E coli Not Detected (NotDetected); Enteropathogenic E coli Not Detected (NotDetected); Enterotoxigenic E coli Not Detected (NotDetected); Giardia lamblia Not Detected (NotDetected); Norovirus Not Detected (NotDetected); Plesimonas Shigalloides, PCR Not Detected (NotDetected); Rotavirus A Not Detected (NotDetected); Salmonella, PCR Not Detected (NotDetected); Sapovirus Not Detected (NotDetected); Shiga-like toxin E coli Not Detected (NotDetected); Shigella Enterovasive E coli Not Detected (NotDetected); Vibrio Cholerae Not Detected (NotDetected); Vibrio, PCR Not Detected (NotDetected); Yersinia Entercolitica, PCR Not Detected (NotDetected)
[2024-05-31] MEDS: 0.9 % SODIUM CHLORIDE 250 ML 25 ML IV (17:27)
== END 2024-05-31 19:46 | disposition home or self-care (01) ==
PROVIDERS: Emergency Provider Emergency Medicine; PCP Family Medicine
DX: D64.9 Anemia, unspecified (principal); K92.1 Melena; R42 Dizziness and giddiness
CPT/HCPCS: 36415; 80053; 85025; 85610; 85651; 85730; 86140; 86850; 87506; 99291; P9016

== ENCOUNTER 2024-06-13 17:52 | Emergency (ER) | payer OTHER, SELFPAY ==
[2024-06-13] VITALS (13 sets, daily range): BP systolic 138–169; BP diastolic 73–96; PULSE 80–97; RESP 18–22; TEMP 36.8–37.2; O2SAT 98–100; BMI 25.8
--- NOTE | 2024-06-13 18:17 | HMH.EDGENADL ---
Discharge Plan Disposition Patient Disposition: Home, Self-Care Prescriptions Prescriptions: No Action atorvastatin 40 mg Tablet 40 mg PO DAILY metoprolol succinate 100 mg Tablet Extended Release 24 Hr 100 mg PO DAILY ropinirole 0.25 mg Tablet 0.25 mg PO DAILY amlodipine 10 mg Tablet 10 mg PO DAILY albuterol 90 mcg/actuation Aerosol 90 mcg INHALATION DAILY mesalamine 1,000 mg suppository 1 g RI HS 28 Days Qty: 30 1RF Referrals Follow up/Referrals: Jaiden Shelby [Primary Care Provider] - See instructions Clinical Impressions Clinical Impression: Acute blood loss anemia, Radiation proctitis Print Language Print Language: Japanese Discharge ED Provider: Pj Gtz General Adult HPI <Richard Pandya MD - Last Filed: 06/13/24 22:29> General Chief complaint: Recheck/Abnormal Lab/Rx Stated complaint: rectal bleeding, diff breathing, tired Time Seen by Provider: 06/13/24 18:02 Mode of Arrival: Ambulatory Source of Information: Patient Limitations: No Limitations Description of Symptoms (Recalled from ER Triage Doc. by RN): pt has had multiple blood transfusions. bright rectal bleeding. History of Present Illness HPI narrative: 63-year-old male presenting today with likely a need for blood transfusion he states. 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 [facility] and mesalamine enemas. States that the [facility] has told him whenever he needs blood products to come to our ER to get transfused and the call them the next day. He has follow-up in [place] shortly with their specialist. No other interventions have been needed in the past he has stated [facility] to the [facility]. He denies any pain just continues to have bright red blood per rectum at his baseline. Related Data Home Medications ?Medication ?Instructions ?Recorded ?Confirmed albuterol 90 mcg/actuation aerosol 90 mcg inhalation DAILY . 02/27/23 02/27/23 inhaler amlodipine 10 mg tablet 10 mg PO DAILY . 02/27/23 02/27/23 atorvastatin 40 mg tablet 40 mg PO DAILY . 02/27/23 02/27/23 metoprolol succinate 100 mg 100 mg PO DAILY High Blood Pressure 02/27/23 02/27/23 tablet,extended release 24 hr ropinirole 0.25 mg tablet 0.25 mg PO DAILY . 02/27/23 02/27/23 Previous Rx's ?Medication ?Instructions ?Recorded mesalamine 1,000 mg rectal 1 g RI HS 4 weeks #30 ea 05/31/24 suppository Allergies Allergy/AdvReac Type Severity Reaction Status Date / Time No Known Allergies Allergy Verified 02/27/23 09:55 [facility] <Richard Pandya MD - Last Filed: 06/13/24 22:29> [facility] Disclaimer: The information contained in this section may have been updated after the patient was seen, as this information can be updated by other users. Social History (Updated 02/27/23 @ 14:41 by Steven Stuart MD) Smoking Status: Never smoker alcohol intake: never current occupational status: previously employed Travel in the last 8 weeks: None Have you lived/traveled outside [place] in past 30 days?: No Contact w/someone who lives/traveled outside US past 30 days?: No Exposure to someone with infectious disease in past 14 days?: No Do you have a fever (greater than 100.4 F or 38 C)?: No Have you tested positive for COVID-19: No Exposed to someone with COVID-19 in past 14 days?: No Do you have a sore throat?: No Do you have a cough?: No Do you have any weakness?: Yes Do you have any diarrhea?: No Are you experiencing any unusual bleeding?: Yes Do you have any muscle aches/pain?: No Do you have any abdominal pain?: No Are you experiencing loss of taste or smell?: No <Richard Pandya MD - Last Filed: 06/13/24 22:29> ROS Obtained: Yes All systems reviewed & no additional complaints except as documented Physical Exam <Richard Pandya MD - Last Filed: 06/13/24 22:29> General General appearance: alert and in no apparent distress Respiratory Respiratory exam: Present normal lung sounds bilaterally Cardiovascular Cardiovascular exam: Present regular rate Neurological Exam Neurological exam: Present alert and oriented X3 Medical Decision Making <Richard Pandya MD - Last Filed: 06/13/24 22:29> Medical Records Screening: Per USPSTF and CDC recommendations, given the prevalence of disease in our region, it is our hospital?s policy to screen for HIV and viral Hepatitis for all patients aged 18 and over and those with ongoing risk factors. Jeff Inquiry Pt receiving controlled substance: No Vital Signs: 06/13/24 17:53 06/13/24 17:59 06/13/24 18:00 Temperature 98.7 F Temperature Source Oral Pulse Rate 97 H 95 H Pulse Rate [Right] 90 Respiratory Rate 22 TAR Vitals Timing Blood Pressure 153/96 H 138/91 H Blood Pressure [Right Arm] 138/91 H Blood Pressure Mean Blood Pressure Mean [Right Arm] 106 Blood Pressure Source Blood Pressure Position 02 Sat by Pulse Oximetry 98 99 100 Oxygen Delivery Method Room Air Room Air Room Air 06/13/24 20:35 06/13/24 21:26 06/13/24 21:27 Temperature 98.9 F Temperature Source Oral Pulse Rate 88 89 85 Pulse Rate [Right] Respiratory Rate 20 TAR Vitals Timing Pre-Blood Vitals Blood Pressure 157/73 H 153/77 H 153/77 H Blood Pressure [Right Arm] Blood Pressure Mean 102 Blood Pressure Mean [Right Arm] Blood Pressure Source Blood Pressure Position 02 Sat by Pulse Oximetry 99 100 100 Oxygen Delivery Method 06/13/24 21:30 06/13/24 21:45 06/13/24 22:00 Temperature 99.0 F Temperature Source Pulse Rate 83 80 86 Pulse Rate [Right] Respiratory Rate 18 TAR Vitals Timing 15 Minute Blood Pressure 159/84 H 160/81 H 160/81 H Blood Pressure [Right Arm] Blood Pressure Mean 107 Blood Pressure Mean [Right Arm] Blood Pressure Source Blood Pressure Position 02 Sat by Pulse Oximetry 100 100 100 Oxygen Delivery Method 06/13/24 22:00 06/13/24 22:10 06/13/24 22:30 Temperature 98.6 F 98.3 F Temperature Source Oral Tympanic Pulse Rate 84 80 83 Pulse Rate [Right] Respiratory Rate 20 18 TAR Vitals Timing 15 Minute Completion Vitals Blood Pressure 160/81 H 169/80 H 163/84 H Blood Pressure [Right Arm] Blood Pressure Mean 107 109 Blood Pressure Mean [Right Arm] Blood Pressure Source Blood Pressure Position 02 Sat by Pulse Oximetry 100 98 98 Oxygen Delivery Method 06/13/24 22:30 06/13/24 23:25 06/13/24 23:31 Temperature 98.9 F 98.5 F 98.4 F Temperature Source Oral Oral Oral Pulse Rate 83 80 80 Pulse Rate [Right] Respiratory Rate 18 20 18 TAR Vitals Timing 15 Minute 15 Minute Blood Pressure 163/84 H 169/80 H 152/74 H Blood Pressure [Right Arm] Blood Pressure Mean 110 109 100 Blood Pressure Mean [Right Arm] Blood Pressure Source Blood Pressure Position 02 Sat by Pulse Oximetry 98 100 98 Oxygen Delivery Method 06/14/24 01:00 Temperature 98.4 F Temperature Source Oral Pulse Rate 80 Pulse Rate [Right] Respiratory Rate 20 TAR Vitals Timing Blood Pressure 152/74 H Blood Pressure [Right Arm] Blood Pressure Mean Blood Pressure Mean [Right Arm] Blood Pressure Source Automatic Cuff Blood Pressure Position Sitting 02 Sat by Pulse Oximetry Oxygen Delivery Method Room Air Lab Data Lab results reviewed: Yes I reviewed the patient's lab results. Lab Results 06/13/24 18:10: WBC 5.9, RBC 2.69 L, Hgb 6.0 L*, Hct 20.2 L*, MCV 75.1 L, MCH 22.3 L, MCHC 29.7 L, RDW 17.4, Plt Count 267, MPV 9.3, Neut % (Auto) 72.7, Lymph % (Auto) 10.5, [place] % (Auto) 14.4 H, Eos % (Auto) 1.4, Baso % (Auto) 0.5, Neut # (Auto) 4.3, Lymph # (Auto) 0.6 L, [place] # (Auto) 0.9, Eos # (Auto) 0.1, Baso # (Auto) 0.0, Sodium 137, Potassium 3.3 L, Chloride 103, Carbon Dioxide 26, Anion Gap 11.3, BUN 15, Creatinine 0.70, Estimated Creat Clear 84, Estimated GFR 114, Est GFR ( Amer) 137, Glucose 125 H, Calcium 9.4, Total Bilirubin 0.4, AST 36, ALT 24, Alkaline Phosphatase 91, Total Protein 6.2 L, Albumin 4.0, Globulin 2.2, Albumin/Globulin Ratio 1.8 06/13/24 19:40: Blood Type O Positive, Antibody Screen Negative, Crossmatch (G) See Detail 06/13/24 18:10 06/13/24 18:10 Orders (Tests/Meds): ED MEDICATIONS Discontinued Medications Generic Name Dose Route Start Last Admin Trade Name Freq PRN Reason Stop Dose Admin Sodium Chloride 250 mls @ 25 mls/hr 06/13/24 19:15 06/13/24 22:18 Sod Chlor 0.9% 250ml Bag IV 06/14/24 19:14 25 mls/hr .Q10H RADHA Administration ORDERS Category Date Time Status Transfuse RBC's [Red Blood Cells] Stat BBK 06/13/24 19:40 Completed Type and Screen Stat BBK 06/13/24 19:40 Completed CBC w/Auto Diff [Complete Blood Count Auto Diff] Stat Lab 06/13/24 18:10 Completed CMP [Comprehensive Metabolic Panel] Stat Lab 06/13/24 18:10 Completed Medical Decision Narrative: Stable well-appearing 63-year-old male but does appear pale presents today with probable symptomatic anemia. CBC been type and screen have been sent and will likely transfuse and have him follow-up [facility] Reass[facility]28 patient had a CBC that showed a hemoglobin of 6.0 2 units of PRBCs have been ordered first has been administered at this point second is going. Care will be transitioned to Dr. Flex Gtz pending final evaluation after patient's infusions are finished. <Pj Gtz MD - Last Filed: 06/14/24 01:12> Vital Signs: 06/13/24 17:53 06/13/24 17:59 06/13/24 18:00 Temperature 98.7 F Temperature Source Oral Pulse Rate 97 H 95 H Pulse Rate [Right] 90 Respiratory Rate 22 TAR Vitals Timing Blood Pressure 153/96 H 138/91 H Blood Pressure [Right Arm] 138/91 H Blood Pressure Mean Blood Pressure Mean [Right Arm] 106 Blood Pressure Source Blood Pressure Position 02 Sat by Pulse Oximetry 98 99 100 Oxygen Delivery Method Room Air Room Air Room Air 06/13/24 20:35 06/13/24 21:26 06/13/24 21:27 Temperature 98.9 F Temperature Source Oral Pulse Rate 88 89 85 Pulse Rate [Right] Respiratory Rate 20 TAR Vitals Timing Pre-Blood Vitals Blood Pressure 157/73 H 153/77 H 153/77 H Blood Pressure [Right Arm] Blood Pressure Mean 102 Blood Pressure Mean [Right Arm] Blood Pressure Source Blood Pressure Position 02 Sat by Pulse Oximetry 99 100 100 Oxygen Delivery Method 06/13/24 21:30 06/13/24 21:45 06/13/24 22:00 Temperature 99.0 F Temperature Source Pulse Rate 83 80 86 Pulse Rate [Right] Respiratory Rate 18 TAR Vitals Timing 15 Minute Blood Pressure 159/84 H 160/81 H 160/81 H Blood Pressure [Right Arm] Blood Pressure Mean 107 Blood Pressure Mean [Right Arm] Blood Pressure Source Blood Pressure Position 02 Sat by Pulse Oximetry 100 100 100 Oxygen Delivery Method 06/13/24 22:00 06/13/24 22:10 06/13/24 22:30 Temperature 98.6 F 98.3 F Temperature Source Oral Tympanic Pulse Rate 84 80 83 Pulse Rate [Right] Respiratory Rate 20 18 TAR Vitals Timing 15 Minute Completion Vitals Blood Pressure 160/81 H 169/80 H 163/84 H Blood Pressure [Right Arm] Blood Pressure Mean 107 109 Blood Pressure Mean [Right Arm] Blood Pressure Source Blood Pressure Position 02 Sat by Pulse Oximetry 100 98 98 Oxygen Delivery Method 06/13/24 22:30 06/13/24 23:25 06/13/24 23:31 Temperature 98.9 F 98.5 F 98.4 F Temperature Source Oral Oral Oral Pulse Rate 83 80 80 Pulse Rate [Right] Respiratory Rate 18 20 18 TAR Vitals Timing 15 Minute 15 Minute Blood Pressure 163/84 H 169/80 H 152/74 H Blood Pressure [Right Arm] Blood Pressure Mean 110 109 100 Blood Pressure Mean [Right Arm] Blood Pressure Source Blood Pressure Position 02 Sat by Pulse Oximetry 98 100 98 Oxygen Delivery Method 06/14/24 01:00 Temperature 98.4 F Temperature Source Oral Pulse Rate 80 Pulse Rate [Right] Respiratory Rate 20 TAR Vitals Timing Blood Pressure 152/74 H Blood Pressure [Right Arm] Blood Pressure Mean Blood Pressure Mean [Right Arm] Blood Pressure Source Automatic Cuff Blood Pressure Position Sitting 02 Sat by Pulse Oximetry Oxygen Delivery Method Room Air Lab Data Lab Results 06/13/24 18:10: WBC 5.9, RBC 2.69 L, Hgb 6.0 L*, Hct 20.2 L*, MCV 75.1 L, MCH 22.3 L, MCHC 29.7 L, RDW 17.4, Plt Count 267, MPV 9.3, Neut % (Auto) 72.7, Lymph % (Auto) 10.5, [place] % (Auto) 14.4 H, Eos % (Auto) 1.4, Baso % (Auto) 0.5, Neut # (Auto) 4.3, Lymph # (Auto) 0.6 L, [place] # (Auto) 0.9, Eos # (Auto) 0.1, Baso # (Auto) 0.0, Sodium 137, Potassium 3.3 L, Chloride 103, Carbon Dioxide 26, Anion Gap 11.3, BUN 15, Creatinine 0.70, Estimated Creat Clear 84, Estimated GFR 114, Est GFR ( Amer) 137, Glucose 125 H, Calcium 9.4, Total Bilirubin 0.4, AST 36, ALT 24, Alkaline Phosphatase 91, Total Protein 6.2 L, Albumin 4.0, Globulin 2.2, Albumin/Globulin Ratio 1.8 06/13/24 19:40: Blood Type O Positive, Antibody Screen Negative, Crossmatch (AHG) See Detail Orders (Tests/Meds): ED MEDICATIONS Discontinued Medications Generic Name Dose Route Start Last Admin Trade Name Freq PRN Reason Stop Dose Admin Sodium Chloride 250 mls @ 25 mls/hr 06/13/24 19:15 06/13/24 22:18 Sod Chlor 0.9% 250ml Bag IV 06/14/24 19:14 25 mls/hr .Q10H RADHA Administration ORDERS Category Date Time Status Transfuse RBC's [Red Blood Cells] Stat BBK 06/13/24 19:40 Completed Type and Screen Stat BBK 06/13/24 19:40 Completed CBC w/Auto Diff [Complete Blood Count Auto Diff] Stat Lab 06/13/24 18:10 Completed CMP [Comprehensive Metabolic Panel] Stat Lab 06/13/24 18:10 Completed Medical Decision Narrative: Stable well-appearing 63-year-old male but does appear pale presents today with probable symptomatic anemia. CBC been type and screen have been sent and will likely transfuse and have him follow-[facility] Re[facility] patient had a CBC that showed a hemoglobin of 6.0 2 units of PRBCs have been ordered first has been administered at this point second is going. Care will be transitioned to Dr. Flex Gtz pending final evaluation after patient's infusions are finished. Tresa CRUZ: I assumed care of the patient at the time of handoff from the prior provider. On reassessment patient remains hemodynamically stable, no sign of transfusion reaction. Patient reports symptomatic improvement. He was discharged in stable condition with return precautions. Critical Care <Richard Pandya MD - Last Filed: 06/13/24 22:29> Critical Care Time Critical Care Time: No
[2024-06-13 18:44] LABS: Basophils % 0.5 % (0.1-2.0); Eosinophils # 0.1 K/mm3 (0.0-0.4); Eosinophils % 1.4 % (0.1-12.0); Lymphocytes # 0.6 K/mm3 (0.7-4.5); Lymphocytes % 10.5 % (10-50); Mean Corpuscular HGB Conc 29.7 g/dL (31.8-35.4); Mean Corpuscular Hemoglobin 22.3 pg (27.0-31.2); Mean Corpuscular Volume 75.1 fl (80-94); Mean Platelet Volume 9.3 fl (7.4-10.4); Monocytes # 0.9 K/mm3 (0.1-1.0); Monocytes % 14.4 % (1.7-9.3); Neutrophils # 4.3 K/mm3 (1.8-7.8); Neutrophils % 72.7 % (37.0-80.0); Platelet Count 267 K/mm3 (142-424); Red Blood Count 2.69 M/mm3 (4.60-6.20); Red Cell Distribution Width 17.4 % (11.5-17.5); White Blood Count 5.9 K/mm3 (4.8-10.8)
[2024-06-13 18:46] LABS: Hematocrit 20.2 % (42.0-52.0)
[2024-06-13 18:50] LABS: Alanine Aminotransferase 24 U/L (12-78); Albumin/Globulin Ratio 1.8 (1.1-1.8); Alkaline Phosphatase 91 U/L (38-126); Anion Gap 11.3 mEq/L (5-15); Aspartate Amino Transferase 36 U/L (17-59); Bilirubin,Total 0.4 mg/dl (0.2-1.3); Blood Urea Nitrogen 15 mg/dl (9-20); Calcium 9.4 mg/dl (8.4-10.2); Carbon Dioxide 26 mmol/L (22.0-30.0); Chloride 103 mmol/L (98-107); Creatinine Clearance Estimated 84 mL/min (50-200); Estimated Glomerular Filt Rate 114 ml/min (>60); GFR (African American) 137 ML/MIN (>60); Globulin 2.2 g/dL (1.3-3.2); Glucose 125 mg/dl (74-100); Potassium 3.3 mmoL/L (3.5-5.1); Sodium 137 mmol/L (136-145); Total Protein,Serum 6.2 g/dl (6.3-8.2)
[2024-06-13] MEDS: 0.9 % SODIUM CHLORIDE 250 ML 25 ML IV (22:18)
[2024-06-14 01:00] VITALS: BP 152/74; PULSE 80; RESP 20; TEMP 36.9; O2SAT 97
== END 2024-06-14 01:03 | disposition home or self-care (01) ==
PROVIDERS: Student in an Organized Health Care Education/Training Program; Emergency Provider Emergency Medicine; PCP Family Medicine
DX: K62.5 Hemorrhage of anus and rectum (principal); K62.7 Radiation proctitis; D62 Acute posthemorrhagic anemia
CPT/HCPCS: 36415; 80053; 85025; 86850; 99283; P9016

== ENCOUNTER 2024-09-24 09:14 | Emergency (ER) | payer OTHER, SELFPAY ==
[2024-09-24] VITALS (38 sets, daily range): BP systolic 114–163; BP diastolic 62–90; PULSE 64–89; RESP 10–19; TEMP 36.5–37.2; O2SAT 94–100; BMI 25.4
--- NOTE | 2024-09-24 09:20 | ECG_ITS ---
APPROVED REPORT Exam: Resting ECG HR:79 bpm ECG Measurements Heart Rate 79 AXES OK 158 P 76 QRSd 100 QRS -13 QT 393 T 49 QTc 427 Conclusion Sinus rhythm Electronically signed by : JENNIFER GARCIA, 09/24/2024 15:29:45
[2024-09-24 09:53] LABS: Albumin Level 3.7 g/dl (3.5-5.0); Chloride 103 mmol/L (98-107); Potassium 3.4 mmoL/L (3.5-5.1); Sodium 136 mmol/L (136-145)
[2024-09-24 09:55] LABS: Alanine Aminotransferase 26 U/L (12-78); Aspartate Amino Transferase 52 U/L (17-59); Blood Urea Nitrogen 13 mg/dl (9-20); Creatinine Clearance Estimated 81 mL/min (50-200); Estimated Glomerular Filt Rate 97 ml/min (>60); GFR (African American) 117 ML/MIN (>60)
--- NOTE | 2024-09-24 09:55 | HMH.EDGENADL ---
Discharge Plan Disposition Patient Disposition: Home, Self-Care Chief Complaint: Shortness of Breath/Dyspnea Prescriptions Prescriptions: No Action atorvastatin 40 mg Tablet 40 mg PO DAILY metoprolol succinate 100 mg Tablet Extended Release 24 Hr 100 mg PO DAILY ropinirole 0.25 mg Tablet 0.25 mg PO DAILY amlodipine 10 mg Tablet 10 mg PO DAILY albuterol 90 mcg/actuation Aerosol 90 mcg INHALATION DAILY mesalamine 1,000 mg suppository 1 g KS HS 28 Days Qty: 30 1RF Referrals Follow up/Referrals: Jaiden Shelby, DO [Primary Care Provider] - See instructions Activity Restrictions/Add. Instructions Additional Instructions/Restrictions: Talk to your welfare case worker regarding outpatient iron infusions as well as blood transfusions. Ask them for a standing referral to [facility] as well as specific orders for what ever they may want (iron infusions, blood infusions, gastroenterology referral, among others). Call your family doctor to establish care for this visit to the emergency department and schedule follow-up within 48 hours to ensure improvement. If you have any worsening of your condition or any other concerning signs or symptoms, return to the emergency department or your primary care doctor for further evaluation. Clinical Impressions Clinical Impression: Acute blood loss anemia Print Language Print Language: Mauritanian Discharge ED Provider: Steven Stuart General Adult HPI General Chief complaint: Shortness of Breath/Dyspnea Stated complaint: SOA-Lightheaded, pale Time Seen by Provider: 09/24/24 09:16 Mode of Arrival: Wheelchair Source of Information: Patient Description of Symptoms (Recalled from ER Triage Doc. by RN): Reports being lightheaded and short of breath for approx 1 week. States he gets like this when his blood levels are low. History of Present Illness HPI narrative: Please note that above description of symptoms, in this electronic medical record under categorization of recalled from ER triage doctor by RN are reflective of an initial nursing assessment, however, is not reflective of my full history and physical exam that was personally taken and clarified. Consequentially, this preceding description of symptoms, which may include the patient's categorized chief complaint in the EMR, do not reflect my personal clinical impression, and the ultimate description of history of present illness and patient stated complaints should be deferred to this section of the note. Unless stated otherwise or congruent with this section of the note, additional signs, symptoms, or incongruence should be interpreted as inaccurate with my clinical impression. Related Data Home Medications ?Medication ?Instructions ?Recorded ?Confirmed albuterol 90 mcg/actuation aerosol 90 mcg inhalation DAILY . 02/27/23 02/27/23 inhaler amlodipine 10 mg tablet 10 mg PO DAILY . 02/27/23 02/27/23 atorvastatin 40 mg tablet 40 mg PO DAILY . 02/27/23 02/27/23 metoprolol succinate 100 mg 100 mg PO DAILY High Blood Pressure 02/27/23 02/27/23 tablet,extended release 24 hr ropinirole 0.25 mg tablet 0.25 mg PO DAILY . 02/27/23 02/27/23 Previous Rx's ?Medication ?Instructions ?Recorded mesalamine 1,000 mg rectal 1 g KS HS 4 weeks #30 ea 05/31/24 suppository Allergies Allergy/AdvReac Type Severity Reaction Status Date / Time No Known Allergies Allergy Verified 02/27/23 09:55 [facility] Disclaimer: The information contained in this section may have been updated after the patient was seen, as this information can be updated by other users. Social History (Updated 02/27/23 @ 14:41 by Steven Stuart MD) Smoking Status: Never smoker alcohol intake: never current occupational status: previously employed Travel in the last 8 weeks: None Have you lived/traveled outside [place] in past 30 days?: No Contact w/someone who lives/traveled outside US past 30 days?: No Exposure to someone with infectious disease in past 14 days?: No Do you have a fever (greater than 100.4 F or 38 C)?: No Have you tested positive for COVID-19: No Exposed to someone with COVID-19 in past 14 days?: No Do you have a sore throat?: No Do you have a cough?: No Do you have any weakness?: Yes Do you have any diarrhea?: No Are you experiencing any unusual bleeding?: No Do you have any muscle aches/pain?: No Do you have any abdominal pain?: No Are you experiencing loss of taste or smell?: No ROS Obtained: Yes All systems reviewed & no additional complaints except as documented Physical Exam General General appearance: alert Head Head exam: atraumatic and normocephalic Eye Eye exam: Present normal appearance, PERRL and EOMI Neck Neck exam: Present normal inspection, full ROM and trachea midline Respiratory Respiratory exam: Absent respiratory distress, wheezes, stridor, accessory muscle use or prolonged expiratory phase Cardiovascular Cardiovascular exam: Present other (Pulses equal symmetric in upper and lower extremities) Abdominal Exam Abdominal exam: Present soft; Absent distention, tenderness or pulsatile mass Extremities Exam Extremities exam: Absent edema Neurological Exam Neurological exam: Present alert, oriented X3 and CN II-XII intact; Absent motor sensory deficit Skin Skin exam: Present warm and dry; Absent diaphoresis or erythema Medical Decision Making Medical Records Medical records reviewed: Yes I reviewed the patient's medical records. Screening: Per USPSTF and CDC recommendations, given the prevalence of disease in our region, it is our hospital?s policy to screen for HIV and viral Hepatitis for all patients aged 18 and over and those with ongoing risk factors. Jeff Inquiry Pt receiving controlled substance: No Jeff was queried for this patient: No Vital Signs: 09/24/24 09:27 09/24/24 09:34 09/24/24 10:00 Temperature 98.0 F Temperature Source Oral Pulse Rate 82 76 Pulse Rate [Radial] 79 Respiratory Rate 18 14 14 TAR Vitals Timing Blood Pressure 123/83 127/77 Blood Pressure [Right Arm] 118/70 Blood Pressure Mean Blood Pressure Mean [Right Arm] 86 Blood Pressure Source [Right Arm] Automatic Cuff Blood Pressure Position [Right Arm] Sitting 02 Sat by Pulse Oximetry 100 100 100 Oxygen Delivery Method Room Air Room Air Room Air 09/24/24 10:30 09/24/24 11:05 09/24/24 11:30 Temperature 98.4 F 98.2 F Temperature Source Oral Oral Pulse Rate 64 69 70 Pulse Rate [Radial] Respiratory Rate 13 16 16 TAR Vitals Timing Pre-Blood Vitals Start Vitals Blood Pressure 123/75 114/66 134/83 Blood Pressure [Right Arm] Blood Pressure Mean 82 100 Blood Pressure Mean [Right Arm] Blood Pressure Source [Right Arm] Blood Pressure Position [Right Arm] 02 Sat by Pulse Oximetry 100 100 100 Oxygen Delivery Method 09/24/24 11:30 09/24/24 11:35 09/24/24 11:37 Temperature 98.3 F Temperature Source Oral Pulse Rate 72 72 74 Pulse Rate [Radial] Respiratory Rate 11 L 14 12 TAR Vitals Timing 5 Minute Blood Pressure 134/83 127/79 127/79 Blood Pressure [Right Arm] Blood Pressure Mean 95 Blood Pressure Mean [Right Arm] Blood Pressure Source [Right Arm] Blood Pressure Position [Right Arm] 02 Sat by Pulse Oximetry 100 100 100 Oxygen Delivery Method 09/24/24 11:40 09/24/24 11:43 09/24/24 11:45 Temperature 97.7 F 97.9 F Temperature Source Oral Oral Pulse Rate 78 69 77 Pulse Rate [Radial] Respiratory Rate 15 13 19 TAR Vitals Timing 10 Minute 15 Minute Blood Pressure 135/82 135/82 145/90 H Blood Pressure [Right Arm] Blood Pressure Mean 99 108 Blood Pressure Mean [Right Arm] Blood Pressure Source [Right Arm] Blood Pressure Position [Right Arm] 02 Sat by Pulse Oximetry 100 100 100 Oxygen Delivery Method 09/24/24 11:48 09/24/24 12:00 09/24/24 12:01 Temperature 98 F Temperature Source Oral Pulse Rate 71 87 76 Pulse Rate [Radial] Respiratory Rate 10 L 15 14 TAR Vitals Timing 30 Minute Blood Pressure 145/90 H 136/62 136/62 Blood Pressure [Right Arm] Blood Pressure Mean 86 Blood Pressure Mean [Right Arm] Blood Pressure Source [Right Arm] Blood Pressure Position [Right Arm] 02 Sat by Pulse Oximetry 100 99 96 Oxygen Delivery Method 09/24/24 12:15 09/24/24 12:25 09/24/24 12:30 Temperature 97.9 F 98 F Temperature Source Oral Oral Pulse Rate 72 72 74 Pulse Rate [Radial] Respiratory Rate 16 10 L 15 TAR Vitals Timing 45 Minute 60 Minute Blood Pressure 148/73 H 148/73 H 132/74 Blood Pressure [Right Arm] Blood Pressure Mean 98 93 Blood Pressure Mean [Right Arm] Blood Pressure Source [Right Arm] Blood Pressure Position [Right Arm] 02 Sat by Pulse Oximetry 96 98 99 Oxygen Delivery Method 09/24/24 12:30 09/24/24 12:46 09/24/24 13:00 Temperature Temperature Source Pulse Rate 78 79 80 Pulse Rate [Radial] Respiratory Rate 16 17 15 TAR Vitals Timing Blood Pressure 132/74 134/68 125/69 Blood Pressure [Right Arm] Blood Pressure Mean Blood Pressure Mean [Right Arm] Blood Pressure Source [Right Arm] Blood Pressure Position [Right Arm] 02 Sat by Pulse Oximetry 94 L 98 94 L Oxygen Delivery Method 09/24/24 13:09 09/24/24 13:10 09/24/24 13:30 Temperature 98.1 F 98.3 F Temperature Source Oral Pulse Rate 85 82 73 Pulse Rate [Radial] Respiratory Rate 15 15 16 TAR Vitals Timing Completion Vitals Pre-Blood Vitals Blood Pressure 145/74 H 145/74 H 136/73 Blood Pressure [Right Arm] Blood Pressure Mean 97 94 Blood Pressure Mean [Right Arm] Blood Pressure Source [Right Arm] Blood Pressure Position [Right Arm] 02 Sat by Pulse Oximetry 96 98 96 Oxygen Delivery Method 09/24/24 13:32 09/24/24 13:45 09/24/24 14:00 Temperature 98.9 F Temperature Source Oral Pulse Rate 80 80 82 Pulse Rate [Radial] Respiratory Rate 16 TAR Vitals Timing Start Vitals Blood Pressure 136/73 138/74 131/77 Blood Pressure [Right Arm] Blood Pressure Mean 95 Blood Pressure Mean [Right Arm] Blood Pressure Source [Right Arm] Blood Pressure Position [Right Arm] 02 Sat by Pulse Oximetry 100 100 100 Oxygen Delivery Method 09/24/24 14:00 09/24/24 14:04 09/24/24 14:05 Temperature 98.5 F Temperature Source Oral Pulse Rate 75 81 82 Pulse Rate [Radial] Respiratory Rate 15 TAR Vitals Timing 5 Minute Blood Pressure 135/76 131/77 143/76 H Blood Pressure [Right Arm] Blood Pressure Mean 98 Blood Pressure Mean [Right Arm] Blood Pressure Source [Right Arm] Blood Pressure Position [Right Arm] 02 Sat by Pulse Oximetry 100 100 100 Oxygen Delivery Method 09/24/24 14:05 09/24/24 14:07 09/24/24 14:10 Temperature 98.5 F 98.3 F Temperature Source Oral Oral Pulse Rate 82 89 79 Pulse Rate [Radial] Respiratory Rate 15 16 TAR Vitals Timing 5 Minute 10 Minute Blood Pressure 143/76 H 143/76 H 148/76 H Blood Pressure [Right Arm] Blood Pressure Mean 98 100 Blood Pressure Mean [Right Arm] Blood Pressure Source [Right Arm] Blood Pressure Position [Right Arm] 02 Sat by Pulse Oximetry 100 98 100 Oxygen Delivery Method 09/24/24 14:11 09/24/24 14:15 09/24/24 14:15 Temperature 98.3 F Temperature Source Oral Pulse Rate 80 80 81 Pulse Rate [Radial] Respiratory Rate 16 TAR Vitals Timing 15 Minute Blood Pressure 148/76 H 136/82 136/82 Blood Pressure [Right Arm] Blood Pressure Mean 100 Blood Pressure Mean [Right Arm] Blood Pressure Source [Right Arm] Blood Pressure Position [Right Arm] 02 Sat by Pulse Oximetry 100 100 100 Oxygen Delivery Method Lab Data Lab Results 09/24/24 09:30: WBC 4.0 L, RBC 3.10 L, Hgb 6.2 L*, Hct 22.6 L, MCV 72.9 L, MCH 20.0 L, MCHC 27.4 L, RDW 17.2, Plt Count 199, MPV 9.0, Neut % (Auto) 74.0, Lymph % (Auto) 7.6 L, [place] % (Auto) 13.6 H, Eos % (Auto) 4.0, Baso % (Auto) 0.5, Neut # (Auto) 2.9, Lymph # (Auto) 0.3 L, [place] # (Auto) 0.5, Eos # (Auto) 0.2, Baso # (Auto) 0.0, Total Counted 100, Neutrophils % (Manual) 89 H, Lymphocytes % (Manual) 7 L, Monocytes % (Manual) 3, Eosinophils % (Manual) 1, Platelet Estimate Normal, RBC Morphology Not Reportable, Hypochromasia 2+, Microcytosis 1+, Tear Drop Cells 1+, PT 10.6, INR 0.94, APTT 22.6 L, Sodium 136, Potassium 3.4 L, Chloride 103, Carbon Dioxide 27, Anion Gap 9.4, BUN 13, Creatinine 0.80, Estimated Creat Clear 81, Estimated GFR 97, Est GFR ( Amer) 117, Glucose 120 H, Calcium 9.1, Iron 30 L, TIBC 438, Iron Saturation 6.60157 L, Ferritin 4.14 L, Total Bilirubin 0.4, AST 52, ALT 26, Alkaline Phosphatase 72, Total Protein 6.3, Albumin 3.7, Globulin 2.6, Albumin/Globulin Ratio 1.4 09/24/24 09:40: Blood Type O Positive, Antibody Screen Negative, Crossmatch (AHG) See Detail 09/24/24 09:30 09/24/24 09:30 Orders (Tests/Meds): ED MEDICATIONS Generic Name Dose Route Start Last Admin Trade Name Freq PRN Reason Stop Dose Admin Sodium Chloride 250 mls @ 25 mls/hr 09/24/24 10:15 Sod Chlor 0.9% 250ml Bag IV 09/25/24 10:14 .Q10H RADHA ORDERS Category Date Time Status Transfuse RBC's [Red Blood Cells] Stat BBK 09/24/24 09:40 Completed Type and Screen Stat BBK 09/24/24 09:40 Completed CBC w/Auto Diff [Complete Blood Count Auto Diff] Stat Lab 09/24/24 09:30 Completed CMP [Comprehensive Metabolic Panel] Stat Lab 09/24/24 09:30 Completed Ferritin Stat Lab 09/24/24 09:30 Completed Iron and TIBC Stat Lab 09/24/24 09:30 Completed PT INR [Prothrombin Time INR] Stat Lab 09/24/24 09:30 Completed PTT [Activated Partial Thrombo Time] Stat Lab 09/24/24 09:30 Completed Medical Decision Narrative: This is a 64-year-old male with history of colorectal cancer status post radiation with radiation proctitis and chronic blood loss anemia currently on iron supplementation, mesalamine rectally, no blood thinners presenting with concern for need for transfusion. He states he has not had a transfusion in a couple of months. States that [facility] [place], [place] [facility] [place] unwilling to provide care to him because he primarily follows in [place], allegedly. He states that he had radiation proctitis treatment (not APC, and other treatment was listed) and he has had minimal bleeding since that time, he states that he has just been losing blood slowly over a couple of months and thinks that he is to the point where now it has just gone on too long, and thinks he may need a transfusion. No other complaints including chest pain, shortness of breath, nausea, vomiting, or any other concerns. He does state that he feels pale. History obtained the patient and . On arrival, very clinically well, normotensive, nontachycardic, he is pale. Abdomen soft, nontender, nondistended. No acute distress and nonactionable exam overall. Differential includes acute blood loss anemia, chronic blood loss anemia, iron deficiency anemia, anemia of chronic disease, among others. Labs were sent. On independent interpretation, patient has anemia with hemoglobin of 6.2 with what appears to be iron deficiency with low MCHC, ACH, MCV. Chemistry nonactionable. Iron levels are low. 2 units ordered. EKG independently interpreted, sinus rhythm 79 bpm with KS 158, QRS 100, QTc 427 with leftward leaning axis, but no acute ischemic change. Patient was placed in observation beginning at 10 AM in order to transfuse, reassess and determine need for admission versus home-going. The patient was provided serial exams, cardiac monitoring, transfusion while awaiting results. On reevaluation, patient's color much better, blood pressure improved, patient feeling much better. At this time, I feel patient is appropriate for discharge. Total observation time 5 hours. Regarding social determinants of health, patient wants to do infusions and manage most of his care at [facility] as much as possible[facility] and [facility] was discussed. Because patient at baseline without signs or symptoms of clinical decompensation, deemed appropriate for discharge. Results were relayed to patient who voiced understanding and were agreeable to outpatient management and follow up. I discussed my clinical impression with patient and answered all questions. At this time, the evidence for any other entities in the differential is insufficient to warrant any further testing or ED observation. This was explained as well. Advisory was given that persistent or worsening symptoms require further evaluation. I confirmed the understanding of this discussion. Squil[place]er disclaimer Much of this encounter note is an electronic tester regulator spoken language to printed text. Electronic tester regulator of the spoken language may permit errors. Although I have reviewed the note, some errors may still exist. Critical Care Critical Care Time Critical Care Time: Yes (Hematologic) Attestation: On 09/24/24, the high probability of a clinically significant, sudden or life threatening deterioration of the following system(s) required my full and direct attention, intervention and personal management. The time I documented below is in addition to time spent performing reported procedures but includes the following listed in this critical care notation. Total Time Total Critical Care Time: 35
[2024-09-24 09:56] LABS: Albumin/Globulin Ratio 1.4 (1.1-1.8); Alkaline Phosphatase 72 U/L (38-126); Anion Gap 9.4 mEq/L (5-15); Bilirubin,Total 0.4 mg/dl (0.2-1.3); Calcium 9.1 mg/dl (8.4-10.2); Carbon Dioxide 27 mmol/L (22.0-30.0); Globulin 2.6 g/dL (1.3-3.2); Glucose 120 mg/dl (74-100); Iron 30 ug/dL (49-181); Total Protein,Serum 6.3 g/dl (6.3-8.2)
[2024-09-24 10:00] LABS: Basophils % 0.5 % (0.1-2.0); Eosinophils # 0.2 Kmm3 (0.0-0.4); Hematocrit 22.6 % (42.0-52.0); Lymphocytes # 0.3 K/mm3 (0.7-4.5); Lymphocytes % 7.6 % (10-50); Mean Corpuscular HGB Conc 27.4 g/dL (31.8-35.4); Mean Corpuscular Volume 72.9 fl (80-94); Monocytes # 0.5 K/mm3 (0.1-1.0); Monocytes % 13.6 % (1.7-9.3); Neutrophils # 2.9 K/mm3 (1.8-7.8); Nucleated Red Blood Cells # 0 10^3/uL; Nucleated Red Blood Cells % 0 %; Platelet Count 199 K/mm3 (142-424); Red Cell Distribution Width 17.2 % (11.5-17.5); Red Cell Distribution Width-SD 44.9 fL
[2024-09-24 10:02] LABS: Hemoglobin 6.2 g/dL (14.1-18.0)
[2024-09-24 10:03] LABS: MANUAL DIFFERENTIAL MANUAL DIFFERENTIAL (MANUAL DIFF)
--- NOTE | 2024-09-24 10:03 | PC.NURSE ---
Dr. Stuart notified of hgb of 6.2.
[2024-09-24 10:06] LABS: Total Iron Binding Capacity 438 ug/dL (261-462)
[2024-09-24 10:29] LABS: Activated Partial Thrombo Time 22.6 seconds (22.8-30.6); INR 0.94 (0.9-1.1); Prothrombin Time 10.6 seconds (10.1-12.5)
[2024-09-24 10:34] LABS: Ferritin 4.14 ng/ml (17.9-464)
[2024-09-24 10:46] LABS: Eosinophils % 1 % (0-3); Hypochromasia 2+; Lymphocytes % 7 % (10-50); Microcytosis 1+; Monocytes % 3 % (2-9); Neutrophils % 89 % (42-76); Platelet Estimate Normal; Tear Drop Cells 1+; Total Cells Counted 100
== END 2024-09-24 15:36 | disposition home or self-care (01) ==
PROVIDERS: Emergency Provider Emergency Medicine; PCP Family Medicine
DX: D62 Acute posthemorrhagic anemia (principal); D50.9 Iron deficiency anemia, unspecified; R42 Dizziness and giddiness
CPT/HCPCS: 36430; 80053; 82728; 83540; 83550; 85007; 85025; 85027; 85610; 85730; 86850; 93005; 99291; P9016

== ENCOUNTER 2024-09-28 23:29 | Emergency (ER) | payer OTHER, SELFPAY ==
[2024-09-28 23:37] VITALS: BMI 25.1
[2024-09-28 23:38] VITALS: BP 144/90; PULSE 99; RESP 18; TEMP 37.3; O2SAT 100; BMI 25.1
[2024-09-28 23:49] LABS: Coronavirus 19, PCR Not Detected (NotDetected); Influenza A, PCR Not Detected (NotDetected); Influenza B, PCR Not Detected (NotDetected)
[2024-09-29] VITALS: BP 150/74; PULSE 84; O2SAT 96
--- NOTE | 2024-09-29 00:10 | ED_ITS ---
Discharge Plan Disposition Patient Disposition: Home, Self-Care Condition: Good Prescriptions Prescriptions: No Action atorvastatin 40 mg Tablet 40 mg PO DAILY metoprolol succinate 100 mg Tablet Extended Release 24 Hr 100 mg PO DAILY ropinirole 0.25 mg Tablet 0.25 mg PO DAILY amlodipine 10 mg Tablet 10 mg PO DAILY albuterol 90 mcg/actuation Aerosol 90 mcg INHALATION DAILY mesalamine 1,000 mg suppository 1 g AK HS 28 Days Qty: 30 1RF Referrals Follow up/Referrals: Shelby,Viral, DO [Primary Care Provider] - See instructions Activity Restrictions/Add. Instructions Additional Instructions/Restrictions: You were evaluated in the ER and are believed to be appropriate for discharge at this time. Take Tylenol or ibuprofen if needed for fever, chills, body aches, sore throat. Do not exceed the recommended dose on the bottle. Drink water and eat a small snack each time you take these medications to avoid side effects. Continue taking any home medications as previously prescribed. Make an appointment with your primary care doctor for reevaluation in 2 to 3 days. Return to the ER with any new, worsening, or otherwise concerning symptoms. Clinical Impressions Clinical Impression: Cough, Nasal congestion Instructions Patient Instructions: DI for Viral Upper Respiratory Infection -- Adult Print Language Print Language: Mongolian Discharge ED Provider: Jannette Smith General Adult HPI General Chief complaint: Upper Respiratory Infection Stated complaint: cough, congestion Time Seen by Provider: 09/28/24 23:46 Mode of Arrival: Ambulatory Source of Information: Patient Description of Symptoms (Recalled from ER Triage Doc. by RN): pt reports cough and congestion that began last night and overall general overall feeling unwell. History of Present Illness HPI narrative: 64-year-old male with history of chronic anemia, previous GI bleed, previous blood transfusions presents to the ER for concerns of cough congestion that began approximately 24 hours ago. He states he is also felt generally under the weather and had temperature up to 100 ?F, nothing over 100.4. Patient states he has taken generic Mucinex DM for cough. He states he is having a mildly productive cough and has quite a bit of nasal congestion and pressure in his sin uses. He states his voice is somewhat hoarse but he does not have sore throat. No difficulty swallowing. No difficulty breathing. No chest pain, abdominal pain, numbness, tingling, weakness, headache, dizziness, or other associated symptoms at this time. When asked about his anemia he states I am good on blood right now . Review of records demonstrates patient had iron deficiency anemia with hemoglobin 6.2 5 days ago and received blood transfusion. He states he has felt improved since that time aside from the symptoms with which he presents today. He reports working at [employer] and being exposed to everything the community has . No other concerns or other associated symptoms. Related Data Home Medications ?Medication ?Instructions ?Recorded ?Confirmed albuterol 90 mcg/actuation aerosol 90 mcg inhalation DAILY . 02/27/23 02/27/23 inhaler amlodipine 10 mg tablet 10 mg PO DAILY . 02/27/23 02/27/23 atorvastatin 40 mg tablet 40 mg PO DAILY . 02/27/23 02/27/23 metoprolol succinate 100 mg 100 mg PO DAILY High Blood Pressure 02/27/23 02/27/23 tablet,extended release 24 hr ropinirole 0.25 mg tablet 0.25 mg PO DAILY . 02/27/23 02/27/23 Previous Rx's ?Medication ?Instructions ?Recorded mesalamine 1,000 mg rectal 1 g AK HS 4 weeks #30 ea 05/31/24 suppository Allergies Allergy/AdvReac Type Severity Reaction Status Date / Time No Known Allergies Allergy Verified 02/27/23 09:55 [facility] [place] Disclaimer: The information contained in this section may have been updated after the patient was seen, as this information can be updated by other users. Social History (Updated 02/27/23 @ 14:41 by Steven Stuart MD) Smoking Status: Never smoker alcohol intake: never current occupational status: previously employed Travel in the last 8 weeks?: None Have you lived/traveled outside [place] in past 30 days?: No Contact w/someone who lives/traveled outside [place] past 30 days?: No Exposure to someone with infectious disease in past 14 days?: No Do you have a fever (greater than 100.4 F or 38 C)?: Yes Have you tested positive for COVID-19?: No Exposed to someone with COVID-19 in past 14 days?: No Do you have a sore throat?: No Do you have a cough?: Yes Do you have any weakness?: No Do you have any diarrhea?: No Are you experiencing any unusual bleeding?: No Do you have any muscle aches/pain?: No Do you have any abdominal pain?: No Are you experiencing loss of taste or smell?: No ROS Obtained: Yes Systems reviewed as appropriate & no additional complaints except as documented per HPI Physical Exam General General appearance: alert and in no apparent distress Head Head exam: atraumatic and normocephalic Eye Eye exam: Present PERRL and EOMI ENT ENT exam: Present mucous membranes moist Neck Neck exam: Present normal inspection and full ROM Chest Chest inspection: Present symmetric chest wall rise Respiratory Respiratory exam: Present normal lung sounds bilaterally and other (Saturating well on room air); Absent respiratory distress, wheezes or stridor Cardiovascular Cardiovascular exam: Present regular rate and normal rhythm Abdominal Exam Abdominal exam: Present soft; Absent distention or tenderness Extremities Exam Extremities exam: Present full ROM Neurological Exam Neurological exam: Present alert and oriented X3; Absent motor sensory deficit Psychiatric Psychiatric exam: Present normal affect and normal mood Skin Skin exam: Present warm and dry Medical Decision Making Medical Records Medical records reviewed: Yes I reviewed the patient's medical records. Screening: Per USPSTF and CDC recommendations, given the prevalence of disease in our region, it is our hospital?s policy to screen for HIV and viral Hepatitis for all patients aged 18 and over and those with ongoing risk factors. MR Comment: Per HPI Jeff Inquiry Pt receiving controlled substance: No Vital Signs: 09/28/24 23:38 Temperature 99.2 F Temperature Source Oral Pulse Rate [Right] 99 H Respiratory Rate 18 Blood Pressure [Right Radial Artery] 144/90 H Blood Pressure Mean [Right Radial Artery] 108 02 Sat by Pulse Oximetry 100 Lab Data Lab Results 09/28/24 23:35: SARS-CoV-2 (PCR) Not detected, Influenza A Untype (PCR) Not detected, Influenza Type B (PCR) Not detected Orders (Tests/Meds): ORDERS Category Date Time Status Rapid PCR Covid and Flu A/B Stat Lab 09/28/24 23:35 Completed Medical Decision Narrative: In summary, this 64-year-old male with comorbidities described in the HPI presents to the emergency department today with cough, nasal congestion. On initial evaluation patient is hemodynamically stable, afebrile, lungs clear bilaterally moving good air and saturating well on room air, no peripheral edema, posterior oropharynx normal, vitals reassuring. Differential diagnosis includes but is not limited to ER syndrome including COVID, influenza, consider the possibility of pneumonia however patient's short duration of symptoms and lack of adventitious sounds during pulmonary exam is reassuring against this, I consider chest x-ray but will not perform this at this time with very low pretest probability for pneumonia. While patient has a history of anemia requiring transfusion, he received transfusion 5 days ago and states he has felt significantly improved since that time. Vitals and symptoms are not consistent with anemia. I do not believe he requires further workup for that at this time. Based on these concerns, I ordered viral swab. Lab results reviewed by me demonstrate patient is negative for COVID and flu. He is appropriate for discharge at this time and comfortable with this plan. He was given instructions on continued symptomatic monitoring and management, follow-up instructions, and strict return precautions for the ER. He indicated understanding and the patient was discharged in stable condition. Critical Care Critical Care Time Critical Care Time: No
[2024-09-29 00:22] VITALS: BP 150/74; PULSE 87; RESP 20; TEMP 36.6; O2SAT 97
== END 2024-09-29 00:26 | disposition home or self-care (01) ==
PROVIDERS: Emergency Provider Emergency Medicine; PCP Family Medicine
DX: R09.81 Nasal congestion (principal); R05.9 Cough, unspecified
CPT/HCPCS: 87636; 99283